=== PATIENT | female | born 1935 | race Caucasian/White ===

== ENCOUNTER 2021-05-27 17:34 | Observation (INO) | payer MEDICARE ==
[2021-05-27] MEDS ORDERED: OXYMETAZOLINE 0.05% NASL SPRAY 1 SPRAY BOTTLE NASAL STA (18:10)
--- NOTE | 2021-05-27 18:51 | CT ---
EXAMINATION TYPE: CT brain darwin wo con DATE OF EXAM: 05/27/2021 COMPARISON: None HISTORY: Fall. CT DLP: 1082.7 mGycm Automated exposure control for dose reduction was used. Images of the brain and cervical spine obtained without contrast. There is diffuse cerebral cortical atrophy. There is patchy hypodensity in the periventricular white matter. There is no mass effect or midline shift. There is no sign of intracranial hemorrhage. There is extensive mucosal thickening in the maxillary and ethmoid air cells. There is normal aeration of t he mastoid sinuses. Cervical vertebra have normal alignment. There is some degenerative mild spur formation in the mid an d lower cervical spine. Posterior elements are intact. Facet joints are intact. There is no compressi on fracture. IMPRESSION: Degenerative hypertrophic mild changes in the cervical spine. No fracture seen. Cerebral atrophy and chronic small vessel ischemia. No acute intracranial abnormality.
--- NOTE | 2021-05-27 18:54 | CT ---
EXAMINATION TYPE: CT facial bones wo con DATE OF EXAM: 05/27/2021 COMPARISON: None HISTORY: Fall. CT DLP: 1082.7 mGycm Automated exposure control for dose reduction was used. Images of the facial bones obtained from the bottom of the mandible to the top of the frontal sinuses with no contrast. There is extensive mucosal thickening in the maxillary and ethmoid sinuses. There is increased densit y throughout the nasopharynx. This is consistent with blood clot and debris. There is fracture of the anterior maxilla. There is a nondisplaced fracture of the nasal bone. Nasal bone deviated very sligh tly to the left side. There is no evidence of orbital blowout fracture. The orbital margins appear intact. The zygomatic ar ches appear normal. The mandibular ring is intact. Temporomandibular joints are intact. There is norm al aeration of the mastoid sinuses. The temporal bones are intact. IMPRESSION: There is fracture of the anterior maxilla and nasal bone. There is blood clot and debris and hemorrha ge in the maxillary and ethmoid sinuses and the nasal pharynx. No orbital blowout fracture.
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
[2021-05-27] MEDS ORDERED: TRANEXAMIC ACID 1,000 MG/10 ML VIAL MISCELLANE ONE (19:27)
[2021-05-27] MEDS ORDERED: ONDANSETRON ODT 4 MG TAB PO STA (19:29)
[2021-05-27] MEDS ORDERED: SODIUM CHLORIDE 0.9% 1,000 ML IV STA (20:14)
[2021-05-27] MEDS ORDERED: ONDANSETRON 4 MG/2 ML VIAL IVP STA (20:17)
[2021-05-27 21:18] LABS: Basophils # (A) 0.1 k/uL (0-0.2); Basophils % (A) 1 %; Eosinophils # (A) 0.1 k/uL (0-0.7); Eosinophils % (A) 1 %; HCT 42.2 % (34.0-46.0); HGB 13.8 gm/dL (11.4-16.0); Lymphocytes % (A) 6 %; MCH 29.9 pg (25.0-35.0); MCHC 32.7 g/dL (31.0-37.0); MCV 91.2 fL (80.0-100.0); Mean Platelet Volume 9.5; Monocytes # (A) 0.7 k/uL (0-1.0); Monocytes % (A) 4 %; Neutrophils # (A) 15.3 k/uL (1.3-7.7); Neutrophils % (A) 89 %; Platelet Count 219 k/uL (150-450); RBC 4.63 m/uL (3.80-5.40); RDW 14.3 % (11.5-15.5); WBC 17.2 k/uL (3.8-10.6)
[2021-05-27 21:23] LABS: Partial Thromboplastin Time 24.3 sec (22.0-30.0); Prothrombin Time 11.2 sec (9.0-12.0)
--- NOTE | 2021-05-27 21:27 | XR ---
EXAMINATION TYPE: XR chest 2V DATE OF EXAM: 05/27/2021 COMPARISON: 01/29/2011 HISTORY: Weakness TECHNIQUE: FINDINGS: Heart is enlarged. There is no heart failure. There are sternal wires. Thoracic aorta is at heromatous. There is no pleural effusion. The thoracic spine is intact there is 30% wedging of upper lumbar vertebra. This is probably L2 vertebra. IMPRESSION: Cardiomegaly. No active cardiopulmonary disease. Atheromatous aorta. There is L2 compress ion fracture which is probably new compared to old exam.
[2021-05-27 21:30] LABS: Albumin 4.1 g/dL (3.5-5.0); Calcium 9.1 mg/dL (8.4-10.2); Magnesium 1.9 mg/dL (1.6-2.3); Potassium 3.4 mmol/L (3.5-5.1); Total Bilirubin 0.7 mg/dL (0.2-1.3); Total Protein 7.6 g/dL (6.3-8.2)
[2021-05-27] MEDS ORDERED: NALOXONE 0.4 MG/ML 1 ML VIAL IV PRN (22:20)
[2021-05-27] MEDS ORDERED: ONDANSETRON 4 MG/2 ML VIAL IVP PRN (22:20)
[2021-05-27] MEDS ORDERED: ASPIRIN 81 MG PO SCH (22:30)
[2021-05-27] MEDS ORDERED: MAGNESIUM OXIDE 400 MG TAB PO SCH (22:30)
[2021-05-27] MEDS ORDERED: ATORVASTATIN 10 MG TAB PO SCH (22:30)
[2021-05-27 22:35] LABS: Amorphous Sediment,Urine Occasional /hpf; Appearance,Urine Turbid (Clear); Bilirubin,Urine Negative (Negative); Blood,Urine Negative (Negative); Color,Urine Light Yellow; Glucose,Urine (UA) Negative (Negative); Ketones,Urine Trace (Negative); Leukocyte Esterase,Urine Negative (Negative); Mucus,Urine Rare /hpf; Nitrite,Urine Negative (Negative); PH, Urine 7.5 (5.0-8.0); Protein,Urine Negative (Negative); Specific Gravity,Urine 1.011 (1.001-1.035); Urobilinogen,Urine <2.0 mg/dL (<2.0); WBC,Urine 1 /hpf (0-5)
[2021-05-27] MEDS: METOPROLOL SUCCINATE (ER) 50 MG TAB.ER.24H PO SCH (23:00)
[2021-05-27] MEDS: CEPHALEXIN 250 MG CAP PO SCH (23:00)
[2021-05-27] MEDS: ACETAMINOPHEN TAB 500 MG TAB PO PRN (23:01)
[2021-05-28] MEDS ORDERED: LEVOTHYROXINE 100 MCG TAB PO SCH (06:30)
[2021-05-28 07:21] VITALS: RESP 18
[2021-05-28] MEDS: ACETAMINOPHEN TAB 500 MG TAB PO PRN (08:35)
[2021-05-28] MEDS: METOPROLOL SUCCINATE (ER) 50 MG TAB.ER.24H PO SCH (08:35)
[2021-05-28] MEDS: CEPHALEXIN 250 MG CAP PO SCH ×2 (08:35→14:46)
[2021-05-28 09:13] LABS: Basophils # (A) 0.1 k/uL (0-0.2); Basophils % (A) 1 %; Eosinophils # (A) 0.1 k/uL (0-0.7); Eosinophils % (A) 0 %; HCT 40.7 % (34.0-46.0); HGB 13.6 gm/dL (11.4-16.0); Lymphocytes # (A) 1.4 k/uL (1.0-4.8); Lymphocytes % (A) 10 %; MCH 30.7 pg (25.0-35.0); MCHC 33.4 g/dL (31.0-37.0); MCV 91.8 fL (80.0-100.0); Mean Platelet Volume 9.1; Monocytes # (A) 0.7 k/uL (0-1.0); Monocytes % (A) 5 %; Neutrophils # (A) 11.4 k/uL (1.3-7.7); Neutrophils % (A) 83 %; Platelet Count 218 k/uL (150-450); RBC 4.44 m/uL (3.80-5.40); RDW 14.3 % (11.5-15.5); WBC 13.9 k/uL (3.8-10.6)
[2021-05-28 09:25] LABS: ALT 21 U/L (4-34); AST 39 U/L (14-36); African American GFR (CKD) 84 (>60 ml/min/1.73 sqM); Albumin 3.8 g/dL (3.5-5.0); Albumin/Globulin Ratio 1.1; Alkaline Phosphatase 64 U/L (38-126); Anion Gap 6 mmol/L; Blood Urea Nitrogen 11 mg/dL (7-17); Calcium 9.2 mg/dL (8.4-10.2); Carbon Dioxide 29 mmol/L (22-30); Chloride 104 mmol/L (98-107); Globulin 3.5 g/dL; Glucose 150 mg/dL (74-99); Non-African American GFR(CKD) 73 (>60 ml/min/1.73 sqM); Potassium 3.5 mmol/L (3.5-5.1); Sodium 139 mmol/L (137-145); Total Bilirubin 0.9 mg/dL (0.2-1.3); Total Protein 7.3 g/dL (6.3-8.2)
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
--- NOTE | 2021-05-28 13:40 | P.GSHP ---
History of Present Illness H&P Date: 05/28/21 Patient seen and examined at 8:40 this morning CHIEF COMPLAINT: Fall HISTORY OF PRESENT ILLNESS: This is a 85-year-old female who presented to the hospital after a fall. Patient reports that she was taking the garbage down to the road. It was very windy. She fell into the ditch landing on ice. She reports hitting her face on the ice. She is not sure if she lost consciousness. She reports that her nose was bleeding. Initially she had difficulty getting up. But then was able to get herself up into the high speed. She called family who brought her in to the hospital for further evaluation and treatment. Patient was found to have fractures of the anterior maxilla and nasal bone. And chest x-ray did show an L2 compression fracture. Patient reports that her pain is controlled. The nose bleeding has stopped. She is tolerating regular diet. She has been seen by orthopedic service and medicine service. She denies any fever chills or sweats. Denies any chest pain or shortness of breath. Denies any abdominal pain. Denies any nausea or vomiting. She is having flatus. Patient denies being on any blood thinners. Patient seen and examined with Dr. resendez. PAST MEDICAL HISTORY: Atrial Fibrillation, GERD/Reflux, Hyperlipidemia, Hypertension, Osteoarthritis (OA), Pneumonia, Thyroid Disorder, PAST SURGICAL HISTORY: See list. MEDICATIONS: See list. ALLERGIES: See list. SOCIAL HISTORY: No illicit drug use. REVIEW OF SYSTEMS: CONSTITUTIONAL: Denies fever or chills. HEENT: Denies blurred vision, vision changes, or eye pain. Denies hemoptysis CARDIOVASCULAR: Denies chest pain or pressure. RESPIRATORY: No shortness of breath. GASTROINTESTINAL: See HPI for pertinent findings HEMATOLOGIC: Denies bleeding disorders. GENITOURINARY: Denies any blood in urine or increased urinary frequency. SKIN: Denies pruitis. Denies rash. PHYSICAL EXAM: VITAL SIGNS: Reviewed GENERAL: Well-developed in no acute distress. HEENT: No sclera icterus. Extraocular movements grossly intact. Moist buccal mucosa. Head is normocephalic. Patient has bruising around the periorbital is bilaterally. His swelling along the nose and bruising. Patient does have dried blood noted in the nares. ABDOMEN: Soft. Nondistended. Nontender NEUROLOGIC: Alert and oriented. Cranial nerves II through XII grossly intact. LABORATORY DATA: WBC 13.9 hemoglobin 13.6 platelets 218 Sodium 139 potassium 3.5 creatinine 0.75 AST 39 IMAGING: Computed tomography scan of the cervical spine and brain shows degenerative hypertrophic mild changes of the cervical spine. No acute fracture. Cerebral atrophy and chronic small vessel ischemia. No acute intracranial abnormality Facial CT there is fracture of the anterior maxilla and nasal bone. There is blood clot and debris and hemorrhage in the maxillary and ethmoid sinuses and nasal pharynx. No orbital blowout fracture. Chest x-ray cardiomegaly. No acute process. There is a L2 compression fracture probably new ASSESSMENT: 1. Fall with facial trauma 2. Fracture of the anterior maxilla and nasal bone 3. L2 compression fracture age undetermined PLAN: -Continue supportive care -Continue pain medication as needed -Continue ice packs as needed -Continue regular diet -Patient follow-up with ENT service outpatient -Patient seen by spinal service and medicine service Physician Woven Paper Hat Mender note has been reviewed by physician. Signing provider agrees with the documented findings, assessment, and plan of care. Past Medical History Past Medical History: Atrial Fibrillation, GERD/Reflux, Hyperlipidemia, Hypertension, Osteoarthritis (OA), Pneumonia, Thyroid Disorder Additional Past Medical History / Comment(s): Afib with RVR, mitral valve prolapse/murmur-had mitral valve replacement, gallbladder dyskinesia, diverticulosis, UTIs, hypothyroid, arthritis bilateral hands fingers. History of Any Multi-Drug Resistant Organisms: None Reported Past Surgical History: Appendectomy, Cardiac Valve Replacement Additional Past Surgical History / Comment(s): TEEs, cardiac caths, 2011 mitral valve replacement, colonoscopies, bilateral cataract removals/lens implants. Past Anesthesia/Blood Transfusion Reactions: No Reported Reaction, Motion Sickness Additional Past Anesthesia/Blood Transfusion Reaction / Comment(s): Clausterphobia Past Psychological History: No Psychological Hx Reported Smoking Status: Never smoker Past Alcohol Use History: None Reported Past Drug Use History: None Reported - Past Family History Father Family Medical History: Cancer Additional Family Medical History / Comment(s): Father from lung/brain cancer. He was a smoker and a drinker. Mother Family Medical History: Diabetes Mellitus Sister(s) Family Medical History: Prostate Disorder Additional Family Medical History / Comment(s): Pt has one sister with diabetes and another sister with multiple sclerosis. Medications and Allergies Home Medications Medication Instructions Recorded Confirmed Type Aspirin EC [Ecotrin Low Dose] 81 mg PO HS 11/18/19 05/27/21 History Cholecalciferol [Vitamin D3 (25 25 mcg PO DAILY 11/18/19 05/27/21 History Mcg = 1000 Iu)] Levothyroxine Sodium [Synthroid] 100 mcg PO DAILY 11/18/19 05/27/21 History Magnesium Oxide [Mag-Ox] 250 mg PO HS 11/18/19 05/27/21 History Metoprolol Succinate (ER) [Toprol 50 mg PO BID 11/18/19 05/27/21 History XL] Simvastatin [Zocor] 10 mg PO HS 11/18/19 05/27/21 History Ascorbic Acid [Vitamin C] 1,000 mg PO HS 05/27/21 05/27/21 History L.acidoph,Paracasei, B.lactis 1 cap PO DAILY 05/27/21 05/27/21 History [Probiotic] Multivit-Min/FA/Lycopen/Lutein 1 tab PO DAILY 05/27/21 05/27/21 History [Centrum Silver Tablet] Zinc 50 mg PO HS 05/27/21 05/27/21 History lisinopriL 2.5 mg PO DAILY 05/27/21 05/27/21 History Allergies Allergy/AdvReac Type Severity Reaction Status Date / Time Latex, Natural Rubber Allergy Rash/Hives Verified 05/27/21 19:08 Surgical - Exam Vital Signs Temp Pulse Resp BP Pulse Ox 98.2 F 89 20 222/99 100 05/27/21 17:36 05/27/21 17:36 05/27/21 17:36 05/27/21 17:36 05/27/21 17:36 Results - Labs 05/28/21 08:37 05/28/21 08:37 Abnormal Lab Results - Last 24 Hours (Table) 05/27/21 05/27/21 05/27/21 Range/Units 20:28 20:28 22:12 WBC 17.2 H (3.8-10.6) k/uL Neutrophils # 15.3 H (1.3-7.7) k/uL Potassium 3.4 L (3.5-5.1) mmol/L Glucose 164 H (74-99) mg/dL AST 47 H (14-36) U/L Urine Appearance Turbid H (Clear) Urine Ketones Trace H (Negative) Amorphous Sediment Occasional H (None) /hpf Urine Mucus Rare H (None) /hpf Diabetes panel 05/27/21 Range/Units 20:28 Sodium 139 (137-145) mmol/L Potassium 3.4 L (3.5-5.1) mmol/L Chloride 104 (98-107) mmol/L Carbon Dioxide 27 (22-30) mmol/L BUN 11 (7-17) mg/dL Creatinine 0.72 (0.52-1.04) mg/dL Glucose 164 H (74-99) mg/dL Calcium 9.1 (8.4-10.2) mg/dL AST 47 H (14-36) U/L ALT 22 (4-34) U/L Alkaline Phosphatase 86 (38-126) U/L Total Protein 7.6 (6.3-8.2) g/dL Albumin 4.1 (3.5-5.0) g/dL Calcium panel 05/27/21 Range/Units 20:28 Calcium 9.1 (8.4-10.2) mg/dL Albumin 4.1 (3.5-5.0) g/dL Pituitary panel 05/27/21 Range/Units 20:28 Sodium 139 (137-145) mmol/L Potassium 3.4 L (3.5-5.1) mmol/L Chloride 104 (98-107) mmol/L Carbon Dioxide 27 (22-30) mmol/L BUN 11 (7-17) mg/dL Creatinine 0.72 (0.52-1.04) mg/dL Glucose 164 H (74-99) mg/dL Calcium 9.1 (8.4-10.2) mg/dL Adrenal panel 05/27/21 Range/Units 20:28 Sodium 139 (137-145) mmol/L Potassium 3.4 L (3.5-5.1) mmol/L Chloride 104 (98-107) mmol/L Carbon Dioxide 27 (22-30) mmol/L BUN 11 (7-17) mg/dL Creatinine 0.72 (0.52-1.04) mg/dL Glucose 164 H (74-99) mg/dL Calcium 9.1 (8.4-10.2) mg/dL Total Bilirubin 0.7 (0.2-1.3) mg/dL AST 47 H (14-36) U/L ALT 22 (4-34) U/L Alkaline Phosphatase 86 (38-126) U/L Total Protein 7.6 (6.3-8.2) g/dL Albumin 4.1 (3.5-5.0) g/dL
--- NOTE | 2021-05-28 13:46 | P.DS ---
Providers Date of admission: 05/27/21 22:20 Expected date of discharge: 05/28/21 Attending physician: Nabor Weston Consults: 05/27/21 22:21 Consult Physician Routine Consulting Provider: Inna Garcia Consult Reason/Comments: medical manage Do you want consulting provider notified?: Yes 05/27/21 22:41 Consult Physician Routine Consulting Provider: Micah Bay Consult Reason/Comments: L2 compression fracture Do you want consulting provider notified?: Yes Primary care physician: Finesse Castaneda Hospital Course: Discharge diagnosis 1. Fall with facial trauma 2. Fracture of the anterior maxilla and nasal bone 3. L2 compression fracture age undetermined Hospital course This is a 85-year-old female who presented to the hospital after a fall. Patient reports that she was taking the garbage down to the road. It was very windy. She fell into the ditch landing on ice. She reports hitting her face on the ice. She is not sure if she lost consciousness. She reports that her nose was bleeding. Initially she had difficulty getting up. But then was able to get herself up into the high speed. She called family who brought her in to the hospital for further evaluation and treatment. Patient was found to have fractures of the anterior maxilla and nasal bone. And chest x-ray did show an L2 compression fracture. Patient reports that her pain is controlled. The nose bleeding has stopped. She is tolerating regular diet. She has been seen by orthopedic service and medicine service. Patient has been up and ambulating. Her nose bleeding has stopped. She is tolerating regular diet. She's been cleared by medical service and spinal service for discharge. She'll follow up with spinal service outpatient. Patient is afebrile. She is tolerating diet. She is stable for discharge. Please refer to chart for any further details. Physician Machine Rough Rounder note has been reviewed by physician. Signing provider agrees with the documented findings, assessment, and plan of care. Patient Condition at Discharge: Stable Plan - Discharge Summary Discharge Rx Participant: No New Discharge Prescriptions: New Acetaminophen Tab [Tylenol Tab] 650 mg PO Q4H PRN #30 tablet PRN Reason: Pain Cephalexin [Keflex] 500 mg PO Q8HR 5 Days #15 cap Continue Magnesium Oxide [Mag-Ox] 250 mg PO HS Cholecalciferol [Vitamin D3 (25 Mcg = 1000 Iu)] 25 mcg PO DAILY Simvastatin [Zocor] 10 mg PO HS Metoprolol Succinate (ER) [Toprol XL] 50 mg PO BID Levothyroxine Sodium [Synthroid] 100 mcg PO DAILY Ascorbic Acid [Vitamin C] 1,000 mg PO HS Zinc 50 mg PO HS L.acidoph,Paracasei, B.lactis [Probiotic] 1 cap PO DAILY lisinopriL 2.5 mg PO DAILY Multivit-Min/FA/Lycopen/Lutein [Centrum Silver Tablet] 1 tab PO DAILY Discontinued Aspirin EC [Ecotrin Low Dose] 81 mg PO HS Discharge Medication List Cholecalciferol [Vitamin D3 (25 Mcg = 1000 Iu)] 25 mcg PO DAILY 11/18/19 [History] Levothyroxine Sodium [Synthroid] 100 mcg PO DAILY 11/18/19 [History] Magnesium Oxide [Mag-Ox] 250 mg PO HS 11/18/19 [History] Metoprolol Succinate (ER) [Toprol XL] 50 mg PO BID 11/18/19 [History] Simvastatin [Zocor] 10 mg PO HS 11/18/19 [History] Ascorbic Acid [Vitamin C] 1,000 mg PO HS 05/27/21 [History] L.acidoph,Paracasei, B.lactis [Probiotic] 1 cap PO DAILY 05/27/21 [History] Multivit-Min/FA/Lycopen/Lutein [Centrum Silver Tablet] 1 tab PO DAILY 05/27/21 [History] Zinc 50 mg PO HS 05/27/21 [History] lisinopriL 2.5 mg PO DAILY 05/27/21 [History] Acetaminophen Tab [Tylenol Tab] 650 mg PO Q4H PRN #30 tablet 05/28/21 [Rx] Cephalexin [Keflex] 500 mg PO Q8HR 5 Days #15 cap 05/28/21 [Rx] Follow up Appointment(s)/Referral(s): Micah Bay DO [Doctor of Osteopathic Medicine] - 1 Week Finesse Castaneda DO [Primary Care Provider] - 1-2 days Maxim Harris MD [STAFF PHYSICIAN] - 1 Week Activity/Diet/Wound Care/Special Instructions: May ambulate as tolerated. Avoid heavy or rigorous activity. No repetitive bending twisting or lifting. No overhead work. Continue to hold aspirin until seen by PCP Discharge Disposition: HOME SELF-CARE
[2021-05-28 15:05] VITALS: BP 146/81; PULSE 76; TEMP 98.2
--- NOTE | 2021-05-28 15:55 | XR ---
EXAMINATION TYPE: XR lumbar spine 2 or 3V DATE OF EXAM: 05/28/2021 COMPARISON: CT dated 01/24/2011 INDICATION: 85-year-old female, possibly new L2 compression fracture TECHNIQUE: 3 views of the lumbar spine FINDINGS: Diffuse osteopenia. Mild anterolisthesis of L5 over S1, likely degenerative. Retrolisthesis of L3 ove r L4. Compression fracture of L2 vertebral body with upper endplate depression and about 45% height r eduction without significant sclerotic changes. This could be acute to subacute, please correlate cli nically. Further CT assessment can be considered if clinically required. Exaggerated lumbar lordosis. Degenerative changes of the lower thoracic and lumbar spine with multile hodan opposing endplate osteophytosis. Suspected facet osteoarthropathy at L4-5 and L5-S1 levels. There is likely degenerated L2-3 disc. Scattered arterial atherosclerotic calcifications. IMPRESSION: L2 vertebral body compression fracture, not appreciated in 2011 CT scan and could be acute to subacut e, chronic fracture cannot be excluded, please correlate clinically. Further CT assessment can be con sidered if clinically required. Other incidental findings as described above.
== END 2021-05-28 15:10 | disposition home or self-care (01) ==
LOC: EC 17:34 → 6NMEDSUR 22:20
PROVIDERS: ADMIT Surgery; ATTEND Surgery
DX: S02.401A Maxillary fracture, unspecified side, initial encounter for closed fracture (principal); S02.2XXA Fracture of nasal bones, initial encounter for closed fracture; M48.56XA Collapsed vertebra, not elsewhere classified, lumbar region, initial encounter for fracture; S01.81XA Laceration without foreign body of other part of head, initial encounter; M54.6 Pain in thoracic spine; W00.0XXA Fall on same level due to ice and snow, initial encounter; R04.89 Hemorrhage from other sites in respiratory passages; W19.XXXA Unspecified fall, initial encounter; K21.9 Gastro-esophageal reflux disease without esophagitis; E03.9 Hypothyroidism, unspecified; E78.5 Hyperlipidemia, unspecified; D72.829 Elevated white blood cell count, unspecified; I11.9 Hypertensive heart disease without heart failure; I25.10 Atherosclerotic heart disease of native coronary artery without angina pectoris; I34.1 Nonrheumatic mitral (valve) prolapse; M50.30 Other cervical disc degeneration, unspecified cervical region; I48.91 Unspecified atrial fibrillation; E87.6 Hypokalemia; M19.042 Primary osteoarthritis, left hand; M19.041 Primary osteoarthritis, right hand; M19.90 Unspecified osteoarthritis, unspecified site; K57.90 Diverticulosis of intestine, part unspecified, without perforation or abscess without bleeding; Z79.890 Hormone replacement therapy; Z79.899 Other long term (current) drug therapy; Z91.040 Latex allergy status; Z98.42 Cataract extraction status, left eye; Z98.41 Cataract extraction status, right eye; Z96.1 Presence of intraocular lens; Z87.01 Personal history of pneumonia (recurrent); K82.8 Other specified diseases of gallbladder; Z95.2 Presence of prosthetic heart valve; Z87.440 Personal history of urinary (tract) infections; Z83.3 Family history of diabetes mellitus; Z82.0 Family history of epilepsy and other diseases of the nervous system; Z80.8 Family history of malignant neoplasm of other organs or systems
CPT/HCPCS: 99285; 96374; 96361 ×2; 36415; 97161; 80053 ×2; 83735; 85025 ×2; 85610; 85730; 81001; 72100; 71046; 72125; 70486; 70450; G0378 ×2; J2405

== ENCOUNTER 2021-06-06 11:57 | Emergency (ER) | payer MEDICARE ==
[2021-06-06 12:51] VITALS: RESP 18; TEMP 98
--- NOTE | 2021-06-06 13:54 | XR ---
EXAMINATION TYPE: XR chest 2V DATE OF EXAM: 06/06/2021 COMPARISON: Chest x-ray 05/27/2021 HISTORY: Fever and cough TECHNIQUE: Frontal and lateral views of the chest are obtained. FINDINGS: There is no focal air space opacity, pleural effusion, or pneumothorax seen. The cardiac silhouette size is thought to be enlarged. Patient is post median sternotomy. There are overlying art ifacts. Patient is rotated. Aorta is dense. Prominence of the pulmonary artery could be indicative of pulmonary artery hypertension. Prominent lung volumes are noted, there is flattening of hemidiaphrag ms suggesting underlying COPD. The osseous structures are intact, anterior wedge compression deformit y near the thoracic lumbar junction is stable.. IMPRESSION: No acute cardiopulmonary process, additional findings above.
[2021-06-06] MEDS ORDERED: predniSONE 50 MG TAB PO STA (15:54)
--- NOTE | 2021-06-06 15:54 | ED ---
General Adult HPI - General Chief complaint: Fever Stated complaint: fever, cough Time Seen by Provider: 06/06/21 14:28 Source: patient Mode of arrival: ambulatory Limitations: no limitations - History of Present Illness Initial comments: This 85-year-old female presents emergency Department with cough, fever and nasal congestion 2 days. Patient states she was seen here in the emergency department about a week and a half ago after a fall at her and she broke her nose at that time and has was placed on Keflex at that time for 5 days. Patient followed up with ENT yesterday who gave her another 10 days of Keflex. Patient states 2 days ago she began to have a nonproductive dry cough and states she had a fever of 100.7 yesterday. Patient states she has been taking Motrin which has relieved and helped her fever. Patient states the cough is better when she is sitting up in her chair. Patient denies any chest pain or shortness of breath. She denies any pain with deep inspiration or pain with the cough. Patient denies any shortness of breath when getting up and moving around. Patient is walking around and ambulatory at her home. She denies any hemoptysis or any malignancy treatment within the last 6 months/ Patient denies any abdominal pain, nausea, vomiting, change in appetite, change in bowel or bladder, headache, lightheadedness, dizziness, sinus pain, change in vision. - Related Data Home Medications Medication Instructions Recorded Confirmed Cholecalciferol [Vitamin D3 (25 25 mcg PO DAILY 11/18/19 05/27/21 Mcg = 1000 Iu)] Levothyroxine Sodium [Synthroid] 100 mcg PO DAILY 11/18/19 05/27/21 Magnesium Oxide [Mag-Ox] 250 mg PO HS 11/18/19 05/27/21 Metoprolol Succinate (ER) [Toprol 50 mg PO BID 11/18/19 05/27/21 XL] Simvastatin [Zocor] 10 mg PO HS 11/18/19 05/27/21 Ascorbic Acid [Vitamin C] 1,000 mg PO HS 05/27/21 05/27/21 L.acidoph,Paracasei, B.lactis 1 cap PO DAILY 05/27/21 05/27/21 [Probiotic] Multivit-Min/FA/Lycopen/Lutein 1 tab PO DAILY 05/27/21 05/27/21 [Centrum Silver Tablet] Zinc 50 mg PO HS 05/27/21 05/27/21 lisinopriL 2.5 mg PO DAILY 05/27/21 05/27/21 Cephalexin [Keflex] 500 mg PO BID 06/06/21 06/06/21 Previous Rx's Medication Instructions Recorded Acetaminophen Tab [Tylenol Tab] 650 mg PO Q4H PRN #30 tablet 05/28/21 Albuterol Inhaler [Ventolin Hfa 2 puff INHALATION RT-TID #8 gm 06/06/21 Inhaler] Benzonatate [Tessalon Perles] 100 mg PO BID #15 capsule 06/06/21 predniSONE 50 mg PO DAILY #5 tab 06/06/21 Allergies Allergy/AdvReac Type Severity Reaction Status Date / Time Latex, Natural Rubber Allergy Rash/Hives Verified 06/06/21 16:00 Review of Systems ROS Statement: Those systems with pertinent positive or pertinent negative responses have been documented in the HPI. ROS Other: All systems not noted in ROS Statement are negative. Past Medical History Past Medical History: Atrial Fibrillation, GERD/Reflux, Hyperlipidemia, Hypertension, Osteoarthritis (OA), Pneumonia, Thyroid Disorder Additional Past Medical History / Comment(s): Afib with RVR, mitral valve prolapse/murmur-had mitral valve replacement, gallbladder dyskinesia, diverticulosis, UTIs, hypothyroid, arthritis bilateral hands fingers. History of Any Multi-Drug Resistant Organisms: None Reported Past Surgical History: Appendectomy, Cardiac Valve Replacement Additional Past Surgical History / Comment(s): TEEs, cardiac caths, 2010 mitral valve replacement, colonoscopies, bilateral cataract removals/lens implants. Past Anesthesia/Blood Transfusion Reactions: No Reported Reaction, Motion Sickness Additional Past Anesthesia/Blood Transfusion Reaction / Comment(s): Clausterphobia Past Psychological History: No Psychological Hx Reported Smoking Status: Never smoker Past Alcohol Use History: None Reported Past Drug Use History: None Reported - Past Family History Father Family Medical History: Cancer Additional Family Medical History / Comment(s): Father from lung/brain cancer. He was a smoker and a drinker. Mother Family Medical History: Diabetes Mellitus Sister(s) Family Medical History: Prostate Disorder Additional Family Medical History / Comment(s): Pt has one sister with diabetes and another sister with multiple sclerosis. General Exam Limitations: no limitations General appearance: alert, in no apparent distress Head exam: Present: normocephalic, other (Patient with bruising to bilateral cheekbones and cheeks was also seen running down her neck into the anterior surface of her chest. Patient states this has been a last couple of weeks since her fall and is slowly improving.) Eye exam: Present: normal appearance, PERRL, EOMI ENT exam: Present: normal exam, normal oropharynx, mucous membranes moist, other (No erythema to posterior oropharynx. Uvula midline. Patient does sound like she has a little bit of nasal congestion) Neck exam: Present: full ROM. Absent: tenderness Respiratory exam: Present: normal lung sounds bilaterally. Absent: respiratory distress, wheezes, rales, rhonchi, stridor, chest wall tenderness, accessory muscle use, decreased breath sounds, prolonged expiratory Cardiovascular Exam: Present: regular rate, normal rhythm, normal heart sounds. Absent: systolic murmur, diastolic murmur, rubs, gallop, clicks GI/Abdominal exam: Present: soft, normal bowel sounds. Absent: distended, tenderness, guarding, rebound, rigid Extremities exam: Present: normal inspection, full ROM, normal capillary refill. Absent: tenderness, pedal edema, joint swelling, calf tenderness Back exam: Present: normal inspection, full ROM. Absent: CVA tenderness (R), CVA tenderness (L), paraspinal tenderness, vertebral tenderness Neurological exam: Present: alert, oriented X3, CN II-XII intact Psychiatric exam: Present: normal affect, normal mood Skin exam: Present: warm, dry, intact, normal color. Absent: rash Course Vital Signs 06/06/21 12:49 Temperature 98 F Pulse Rate 98 Respiratory 18 Rate Blood Pressure 125/78 O2 Sat by Pulse 95 Oximetry Medical Decision Making - Medical Decision Making This 85-year-old's Emergency Department with Fever, Cough and Nasal Congestion 2 Days. Influenza A/B and COVID-19 negative. Patient is on Keflex antibiotic already 10 days. Chest x-ray without any acute abnormalities. Patient given 5 day dose of prednisone along with albuterol inhaler and Tessalon Perles. Instructed patient to return to the emergency department if she experiences any shortness of breath, pain in chest with breathing or coughing, shortness of breath when moving around or just sitting, chest pain or any new, worsening or concerning symptoms present. I instructed her to return to the emergency de partment if the Motrin does not help her fever or for fever presents for more than 5 days. Patient instructed to follow up with her primary care provider next 1-2 days. Strict return precautions were discussed. Patient verbally agree to plan. Patient sent home in stable condition. Wells and perc criteria did not show increased risk for pulmonary embolism, along with patient's oxygen being 95% and patient without any shortness of breath or chest pain. Patient has not had any recent surgeries, has been ambulatory in her home, and is not being treated for any malignancy. Vitals were all stable. Case discussed with my attending, Dr. Herring. - Lab Data Lab Results 06/06/21 06/06/21 Range/Units 14:27 14:27 Coronavirus (PCR) Not Detected (Not Detectd) Influenza Type A RNA Not Detected (Not Detectd) Influenza Type B (PCR) Not Detected (Not Detectd) Disposition Clinical Impression: Upper respiratory infection with cough and congestion Disposition: HOME SELF-CARE Condition: Stable Instructions (If sedation given, give patient instructions): Upper Respiratory Infection (ED) Additional Instructions: Please follow-up with your primary care provider next 1-2 days. Return to the emergency department with any new, worsening, or concerning symptoms. Take steroid as directed. Use albuterol inhaler as directed. Take Tessalon Perles as directed. Prescriptions: predniSONE 50 mg PO DAILY #5 tab Benzonatate [Tessalon Perles] 100 mg PO BID #15 capsule Albuterol Inhaler [Ventolin Hfa Inhaler] 2 puff INHALATION RT-TID #8 gm Is patient prescribed a controlled substance at d/c from ED?: No Referrals: Finesse Castaneda DO [Primary Care Provider] - 1-2 days Time of Disposition: 15:48
[2021-06-06] MEDS ORDERED: ALBUTEROL HFA INHALER INHALATION STA (15:55)
[2021-06-06 16:52] VITALS: BP 137/75; PULSE 85
== END 2021-06-06 16:52 | disposition home or self-care (01) ==
LOC: EC 11:57
DX: J06.9 Acute upper respiratory infection, unspecified (principal); I48.91 Unspecified atrial fibrillation; K21.9 Gastro-esophageal reflux disease without esophagitis; E78.5 Hyperlipidemia, unspecified; I10 Essential (primary) hypertension; M19.90 Unspecified osteoarthritis, unspecified site; E07.9 Disorder of thyroid, unspecified; Z20.822 Contact with and (suspected) exposure to COVID-19; Z91.040 Latex allergy status; Z87.440 Personal history of urinary (tract) infections; Z79.899 Other long term (current) drug therapy; Z90.49 Acquired absence of other specified parts of digestive tract
CPT/HCPCS: 99283; 94640; 87502; 87635; 71046; J7512

== ENCOUNTER 2021-07-19 20:54 | Emergency (ER) | payer MEDICARE ==
[2021-07-19 22:28] VITALS: TEMP 97.7
[2021-07-20] MEDS ORDERED: ONDANSETRON 4 MG/2 ML VIAL IVP STA (00:07)
[2021-07-20] MEDS ORDERED: SODIUM CHLORIDE 0.9% 1,000 ML IV STA (00:07)
[2021-07-20] MEDS ORDERED: SODIUM CHLORIDE 0.9% 500 ML 500 ML IV STA (00:07)
--- NOTE | 2021-07-20 00:11 | ED ---
GI Bleed HPI - General Chief complaint: GI Bleed Stated complaint: blood in stool Time Seen by Provider: 07/20/21 00:07 Source: patient, RN notes reviewed, old records reviewed Mode of arrival: ambulatory Limitations: no limitations - History of Present Illness Initial comments: This is an 85-year-old female DF for evaluation. Patient coming in for weakness today. No nausea no vomiting. Patient does have bright red bleeding per rectum. She has history of colonoscopy. No travel history or sick contacts. No fevers. No cough or congestion. No other complaints MD complaint: blood on toilet paper, blood streaked stool -: hour(s) Radiation: none Severity scale (1-10): 7 Quality: painless Consistency: constant Improves with: none Worsens with: none Context: history of GI bleed Associated Symptoms: nausea, loss of appetite, malaise, weakness Treatments Prior to Arrival: none - Related Data Home Medications Medication Instructions Recorded Confirmed Levothyroxine Sodium [Synthroid] 100 mcg PO DAILY 11/18/19 07/23/21 Magnesium Oxide [Mag-Ox] 250 mg PO HS 11/18/19 07/23/21 Metoprolol Succinate (ER) [Toprol 50 mg PO BID 11/18/19 07/23/21 XL] Simvastatin [Zocor] 10 mg PO HS 11/18/19 07/23/21 Ascorbic Acid [Vitamin C] 1,000 mg PO HS 05/27/21 07/23/21 L.acidoph,Paracasei, B.lactis 1 cap PO DAILY 05/27/21 07/23/21 [Probiotic] Multivit-Min/FA/Lycopen/Lutein 1 tab PO DAILY 05/27/21 07/23/21 [Centrum Silver Tablet] Zinc 50 mg PO HS 05/27/21 07/23/21 lisinopriL 2.5 mg PO DAILY 05/27/21 07/23/21 Cholecalciferol [Vitamin D3 (25 25 mcg PO DAILY 07/20/21 07/23/21 Mcg = 1000 Iu)] Previous Rx's Medication Instructions Recorded Peg 3350-Na Sulf,Bicarb,Cl/KCl 4,000 ml PO DIRECTED #1 each 07/20/21 [Golytely Lavage] Allergies Allergy/AdvReac Type Severity Reaction Status Date / Time Latex, Natural Rubber Allergy Rash/Hives Verified 07/23/21 10:57 Review of Systems ROS Statement: Those systems with pertinent positive or pertinent negative responses have been documented in the HPI. ROS Other: All systems not noted in ROS Statement are negative. Past Medical History Past Medical History: Atrial Fibrillation, GERD/Reflux, Hyperlipidemia, Hypertension, Osteoarthritis (OA), Pneumonia, Thyroid Disorder Additional Past Medical History / Comment(s): Afib with RVR, mitral valve prolapse/murmur-had mitral valve replacement, gallbladder dyskinesia, diverticulosis, UTIs, hypothyroid, arthritis bilateral hands fingers. History of Any Multi-Drug Resistant Organisms: None Reported Past Surgical History: Appendectomy, Cardiac Valve Replacement Additional Past Surgical History / Comment(s): TEEs, cardiac caths, 2011 mitral valve replacement, colonoscopies, bilateral cataract removals/lens implants. Past Anesthesia/Blood Transfusion Reactions: No Reported Reaction, Motion Sickness Additional Past Anesthesia/Blood Transfusion Reaction / Comment(s): Clausterphobia Past Psychological History: No Psychological Hx Reported Smoking Status: Never smoker Past Alcohol Use History: None Reported Past Drug Use History: None Reported - Past Family History Father Family Medical History: Cancer Additional Family Medical History / Comment(s): Father from lung/brain cancer. He was a smoker and a drinker. Mother Family Medical History: Diabetes Mellitus Sister(s) Family Medical History: Prostate Disorder Additional Family Medical History / Comment(s): Pt has one sister with diabetes and another sister with multiple sclerosis. General Exam Limitations: no limitations General appearance: alert, in no apparent distress Head exam: Present: atraumatic, normocephalic, normal inspection Eye exam: Present: normal appearance, PERRL, EOMI. Absent: scleral icterus, conjunctival injection, periorbital swelling ENT exam: Present: normal exam, mucous membranes moist Neck exam: Present: normal inspection. Absent: tenderness, meningismus, lymphadenopathy Respiratory exam: Present: normal lung sounds bilaterally. Absent: respiratory distress, wheezes, rales, rhonchi, stridor Cardiovascular Exam: Present: regular rate, normal rhythm, normal heart sounds. Absent: systolic murmur, diastolic murmur, rubs, gallop, clicks GI/Abdominal exam: Present: soft, normal bowel sounds. Absent: distended, tenderness, guarding, rebound, rigid Rectal exam: Present: bloody stool Extremities exam: Present: normal inspection, full ROM, normal capillary refill. Absent: tenderness, pedal edema, joint swelling, calf tenderness Back exam: Present: normal inspection Neurological exam: Present: alert, oriented X3, CN II-XII intact Psychiatric exam: Present: normal affect, normal mood Skin exam: Present: warm, dry, intact, normal color. Absent: rash Course Vital Signs 07/19/21 07/20/21 07/20/21 22:24 01:07 07:11 Temperature 97.7 F Pulse Rate 86 84 65 Respiratory 16 18 18 Rate Blood Pressure 137/77 129/71 128/70 O2 Sat by Pulse 97 98 95 Oximetry - Reevaluation(s) Reevaluation #1: 07/20/21 00:09 Medical record is reviewed Reevaluation #2: Patient symptoms are improving here in the emergency department Patient is informed of results and questions have been answered Medical Decision Making - Medical Decision Making 85 female to be admitted for acute GI bleed. Active current bright red blood per rectum, hemoglobin normal vital signs normal and stable. Patient be admitted for recheck of hemoglobin - Lab Data Result diagrams: 07/20/21 09:12 07/20/21 00:46 Lab Results 07/20/21 07/20/21 07/20/21 Range/Units 00:46 00:46 00:46 WBC 10.5 (3.8-10.6) k/uL RBC 4.65 (3.80-5.40) m/uL Hgb 13.4 (11.4-16.0) gm/dL Hct 42.4 (34.0-46.0) % MCV 91.3 (80.0-100.0) fL MCH 28.8 (25.0-35.0) pg MCHC 31.6 (31.0-37.0) g/dL RDW 13.3 (11.5-15.5) % Plt Count 209 (150-450) k/uL MPV 8.9 Neutrophils % 69 % Lymphocytes % 18 % Monocytes % 6 % Eosinophils % 3 % Basophils % 2 % Neutrophils # 7.3 (1.3-7.7) k/uL Lymphocytes # 1.9 (1.0-4.8) k/uL Monocytes # 0.6 (0-1.0) k/uL Eosinophils # 0.3 (0-0.7) k/uL Basophils # 0.2 (0-0.2) k/uL PT 10.6 (9.0-12.0) sec INR 1.0 (<1.2) APTT 26.1 (22.0-30.0) sec Sodium 140 (137-145) mmol/L Potassium 4.1 (3.5-5.1) mmol/L Chloride 105 (98-107) mmol/L Carbon Dioxide 28 (22-30) mmol/L Anion Gap 7 mmol/L BUN 16 (7-17) mg/dL Creatinine 0.90 (0.52-1.04) mg/dL Est GFR (CKD-EPI)AfAm 68 (>60 ml/min/1.73 sqM) Est GFR (CKD-EPI)NonAf 59 (>60 ml/min/1.73 sqM) Glucose 117 H (74-99) mg/dL Plasma Lactic Acid Bryce (0.7-2.0) mmol/L Calcium 9.5 (8.4-10.2) mg/dL Phosphorus 3.6 (2.5-4.5) mg/dL Magnesium 2.1 (1.6-2.3) mg/dL Total Bilirubin 0.5 (0.2-1.3) mg/dL AST 28 (14-36) U/L ALT 16 (4-34) U/L Alkaline Phosphatase 93 (38-126) U/L Troponin I (0.000-0.034) ng/mL NT-Pro-B Natriuret Pep pg/mL Total Protein 7.5 (6.3-8.2) g/dL Albumin 4.0 (3.5-5.0) g/dL Blood Type Blood Type Recheck Bld Type Recheck Status Antibody Screen Spec Expiration Date 07/20/21 07/20/21 07/20/21 Range/Units 00:46 00:46 00:46 WBC (3.8-10.6) k/uL RBC (3.80-5.40) m/uL Hgb (11.4-16.0) gm/dL Hct (34.0-46.0) % MCV (80.0-100.0) fL MCH (25.0-35.0) pg MCHC (31.0-37.0) g/dL RDW (11.5-15.5) % Plt Count (150-450) k/uL MPV Neutrophils % % Lymphocytes % % Monocytes % % Eosinophils % % Basophils % % Neutrophils # (1.3-7.7) k/uL Lymphocytes # (1.0-4.8) k/uL Monocytes # (0-1.0) k/uL Eosinophils # (0-0.7) k/uL Basophils # (0-0.2) k/uL PT (9.0-12.0) sec INR (<1.2) APTT (22.0-30.0) sec Sodium (137-145) mmol/L Potassium (3.5-5.1) mmol/L Chloride (98-107) mmol/L Carbon Dioxide (22-30) mmol/L Anion Gap mmol/L BUN (7-17) mg/dL Creatinine (0.52-1.04) mg/dL Est GFR (CKD-EPI)AfAm (>60 ml/min/1.73 sqM) Est GFR (CKD-EPI)NonAf (>60 ml/min/1.73 sqM) Glucose (74-99) mg/dL Plasma Lactic Acid Bryce (0.7-2.0) mmol/L Calcium (8.4-10.2) mg/dL Phosphorus (2.5-4.5) mg/dL Magnesium (1.6-2.3) mg/dL Total Bilirubin (0.2-1.3) mg/dL AST (14-36) U/L ALT (4-34) U/L Alkaline Phosphatase (38-126) U/L Troponin I <0.012 (0.000-0.034) ng/mL NT-Pro-B Natriuret Pep 707 pg/mL Total Protein (6.3-8.2) g/dL Albumin (3.5-5.0) g/dL Blood Type O Negative Blood Type Recheck O Neg Bld Type Recheck Status No Antibody Screen NEGATIVE Spec Expiration Date 07/23/2021234507/20/21 07/20/21 Range/Units 00:54 09:12 WBC 7.6 (3.8-10.6) k/uL RBC 4.49 (3.80-5.40) m/uL Hgb 13.3 (11.4-16.0) gm/dL Hct 41.9 (34.0-46.0) % MCV 93.3 (80.0-100.0) fL MCH 29.5 (25.0-35.0) pg MCHC 31.7 (31.0-37.0) g/dL RDW 13.9 (11.5-15.5) % Plt Count 217 (150-450) k/uL MPV 9.0 Neutrophils % % Lymphocytes % % Monocytes % % Eosinophils % % Basophils % % Neutrophils # (1.3-7.7) k/uL Lymphocytes # (1.0-4.8) k/uL Monocytes # (0-1.0) k/uL Eosinophils # (0-0.7) k/uL Basophils # (0-0.2) k/uL PT (9.0-12.0) sec INR (<1.2) APTT (22.0-30.0) sec Sodium (137-145) mmol/L Potassium (3.5-5.1) mmol/L Chloride (98-107) mmol/L Carbon Dioxide (22-30) mmol/L Anion Gap mmol/L BUN (7-17) mg/dL Creatinine (0.52-1.04) mg/dL Est GFR (CKD-EPI)AfAm (>60 ml/min/1.73 sqM) Est GFR (CKD-EPI)NonAf (>60 ml/min/1.73 sqM) Glucose (74-99) mg/dL Plasma Lactic Acid Bryce 1.8 (0.7-2.0) mmol/L Calcium (8.4-10.2) mg/dL Phosphorus (2.5-4.5) mg/dL Magnesium (1.6-2.3) mg/dL Total Bilirubin (0.2-1.3) mg/dL AST (14-36) U/L ALT (4-34) U/L Alkaline Phosphatase (38-126) U/L Troponin I (0.000-0.034) ng/mL NT-Pro-B Natriuret Pep pg/mL Total Protein (6.3-8.2) g/dL Albumin (3.5-5.0) g/dL Blood Type Blood Type Recheck Bld Type Recheck Status Antibody Screen Spec Expiration Date - EKG Data -: EKG Interpreted by Me (EKG is sinus rhythm 78 HI 202 QRS 110 QTc 440) Disposition Clinical Impression: Lower GI hemorrhage Disposition: ADMITTED IP TO THIS HOSP Condition: Fair Additional Instructions: Scheduling will contact patient with the time of her colonoscopy Patient can have full liquids on Friday and then start clear liquids on Friday Patient should be nothing by mouth after midnight on Friday Prescriptions: Peg 3350-Na Sulf,Bicarb,Cl/KCl [Golytely Lavage] 4,000 ml PO DIRECTED #1 each Is patient prescribed a controlled substance at d/c from ED?: No Referrals: Finesse Castaneda DO [Primary Care Provider] - 1-2 days Nabor Weston MD [STAFF PHYSICIAN] - 07/23/21
[2021-07-20 01:02] LABS: Basophils # (A) 0.2 k/uL (0-0.2); Basophils % (A) 2 %; Eosinophils # (A) 0.3 k/uL (0-0.7); Eosinophils % (A) 3 %; HCT 42.4 % (34.0-46.0); HGB 13.4 gm/dL (11.4-16.0); Lymphocytes # (A) 1.9 k/uL (1.0-4.8); Lymphocytes % (A) 18 %; MCH 28.8 pg (25.0-35.0); MCHC 31.6 g/dL (31.0-37.0); MCV 91.3 fL (80.0-100.0); Mean Platelet Volume 8.9; Monocytes # (A) 0.6 k/uL (0-1.0); Monocytes % (A) 6 %; Neutrophils # (A) 7.3 k/uL (1.3-7.7); Neutrophils % (A) 69 %; Platelet Count 209 k/uL (150-450); RBC 4.65 m/uL (3.80-5.40); RDW 13.3 % (11.5-15.5); WBC 10.5 k/uL (3.8-10.6)
[2021-07-20 01:07] VITALS: RESP 18
[2021-07-20 01:17] LABS: Calcium 9.5 mg/dL (8.4-10.2); Magnesium 2.1 mg/dL (1.6-2.3); Phosphorus 3.6 mg/dL (2.5-4.5); Potassium 4.1 mmol/L (3.5-5.1); Total Bilirubin 0.5 mg/dL (0.2-1.3); Total Protein 7.5 g/dL (6.3-8.2)
[2021-07-20 01:20] LABS: Partial Thromboplastin Time 26.1 sec (22.0-30.0); Prothrombin Time 10.6 sec (9.0-12.0)
[2021-07-20] MEDS ORDERED: NALOXONE 0.4 MG/ML 1 ML VIAL IV PRN (02:33)
[2021-07-20] MEDS ORDERED: MORPHINE SULFATE 4 MG/ML SYRINGE IV PRN (02:33)
[2021-07-20] MEDS ORDERED: ONDANSETRON 4 MG/2 ML VIAL IVP PRN (02:33)
[2021-07-20] MEDS: SODIUM CHLORIDE 0.9% 1,000 ML IV SCH ×2 (03:22→11:58)
--- NOTE | 2021-07-20 04:05 | P.HPIM ---
History of Present Illness H&P Date: 07/20/21 The patient is an 85-year-old female with a PMH of A. fib (not on anticoagulation), hyperlipidemia, hypertension, GERD, hypothyroidism, mitral valve replacement, diverticulosis, who presents to the emergency room with complaints of bloody bowel movements. The patient reports that her symptoms started this evening, when she suddenly developed grossly bloody large bowel movement. She reports some clots without any black tarry material. She also reports mild nausea which resolved following the bowel movement. She notes to total episodes of bloody bowel movements at home and subsequently 2 more hair at the hospital which were significantly smaller. Reports no physical complaints at the time of interview. Denied experiencing fever, chills, cough, nausea, vomiting. Denied chest discomfort, shortness of breath. Of note, the patient was admitted in 10/2019 for GI bleeding at which time a colonoscopy revealed pandiverticulosis with a cecal polyp removed and low-grade internal hemorrhoids. Laboratory evaluation in the emergency room revealed a hemoglobin of 13.4 (similar to baseline). Review of systems: Pertinent positives and negatives as discussed in HPI, a complete review of syst ems was performed and all other systems are negative. Physical examination: General: non toxic, no distress, appears younger than stated age, normal weight Derm: no unusual rashes/lesions no unusual ecchymoses, warm, dry Head: atraumatic, normocephalic, symmetric Eyes: EOMI, no lid lag, anicteric sclera, pupils equal round reactive to light ENT: Nose and ears atraumatic, no thrush, no pharyngeal erythema Neck: No thyromegaly, no cervical lymphadenopathy, trachea midline, supple Mouth: no lip lesion, mucus membranes moist Cardiovascular: S1S2 reg, no murmur, positive posterior tibial pulse bilateral, no edema, capillary refill less than 2 seconds Lungs: CTA bilateral, no rhonchi, no rales , no accessory muscle use Abdominal: soft, nontender to palpation, no guarding, no appreciable organ omegaly, normal bowel sounds Ext: no gross muscle atrophy, muscle strength 5 out of 5 in all 4 extremities grossly, no contractures, Neuro: CN II-XI grossly intact, light touch intact all 4 extremities, finger to nose within normal limits, Psych: Alert, oriented, appropriate affect Assessment/plan Bright red blood in stools with history of hemorrhoids and diverticulosis -Monitor CBC -Surgery consult for EGD/colonoscopy -Protonix IV -Gentle IV hydration -NPO DVT prophylaxis -IPCDs The patient is admitted with an anticipated less than 2 midnight stay for evaluation of BRBPR CODE STATUS: Full Code Discussed with: Patient Anticipated discharge date: in am Anticipated discharge place: Home Past Medical History Past Medical History: Atrial Fibrillation, GERD/Reflux, Hyperlipidemia, Hypertension, Osteoarthritis (OA), Pneumonia, Thyroid Disorder Additional Past Medical History / Comment(s): Afib with RVR, mitral valve pr olapse/murmur-had mitral valve replacement, gallbladder dyskinesia, diverticulosis, UTIs, hypothyroid, arthritis bilateral hands fingers. History of Any Multi-Drug Resistant Organisms: None Reported Past Surgical History: Appendectomy, Cardiac Valve Replacement Additional Past Surgical History / Comment(s): TEEs, cardiac caths, 2010 mitral valve replacement, colonoscopies, bilateral cataract removals/lens implants. Past Anesthesia/Blood Transfusion Reactions: No Reported Reaction, Motion Sickness Additional Past Anesthesia/Blood Transfusion Reaction / Comment(s): Bruno terphobia Past Psychological History: No Psychological Hx Reported Smoking Status: Never smoker Past Alcohol Use History: None Reported Past Drug Use History: None Reported - Past Family History Father Family Medical History: Cancer Additional Family Medical History / Comment(s): Father from lung/brain cancer. He was a smoker and a drinker. Mother Family Medical History: Diabetes Mellitus Sister(s) Family Medical History: Prostate Disorder Additional Family Medical History / Comment(s): Pt has one sister with diabetes and another sister with multiple sclerosis. Medications and Allergies Home Medications Medication Instructions Recorded Confirmed Type Cholecalciferol [Vitamin D3 (25 25 mcg PO DAILY 11/18/19 06/06/21 History Mcg = 1000 Iu)] Levothyroxine Sodium [Synthroid] 100 mcg PO DAILY 11/18/19 06/06/21 History Magnesium Oxide [Mag-Ox] 250 mg PO HS 11/18/19 06/06/21 History Metoprolol Succinate (ER) [Toprol 50 mg PO BID 11/18/19 06/06/21 History XL] Simvastatin [Zocor] 10 mg PO HS 11/18/19 06/06/21 History Ascorbic Acid [Vitamin C] 1,000 mg PO HS 05/27/21 06/06/21 History L.acidoph,Paracasei, B.lactis 1 cap PO DAILY 05/27/21 06/06/21 History [Probiotic] Multivit-Min/FA/Lycopen/Lutein 1 tab PO DAILY 05/27/21 06/06/21 History [Centrum Silver Tablet] Zinc 50 mg PO HS 05/27/21 06/06/21 History lisinopriL 2.5 mg PO DAILY 05/27/21 06/06/21 History Acetaminophen Tab [Tylenol Tab] 650 mg PO Q4H PRN #30 tablet 05/28/21 06/06/21 Rx Albuterol Inhaler [Ventolin Hfa 2 puff INHALATION RT-TID #8 gm 06/06/21 Rx Inhaler] Benzonatate [Tessalon Perles] 100 mg PO BID #15 capsule 06/06/21 Rx Cephalexin [Keflex] 500 mg PO BID 06/06/21 06/06/21 History predniSONE 50 mg PO DAILY #5 tab 06/06/21 Rx Allergies Allergy/AdvReac Type Severity Reaction Status Date / Time Latex, Natural Rubber Allergy Rash/Hives Verified 06/06/21 16:00 Physical Exam Vitals: Vital Signs Temp Pulse Resp BP Pulse Ox 07/20/21 01:07 84 18 129/71 98 07/19/21 22:24 97.7 F 86 16 137/77 97 Intake and Output 07/19/21 07/19/21 07/20/21 14:59 22:59 06:59 Other: Weight 68.039 kg Results CBC & Chem 7: 07/20/21 00:46 07/20/21 00:46 Labs: Abnormal Lab Results - Last 24 Hours (Table) 07/20/21 Range/Units 00:46 Glucose 117 H (74-99) mg/dL
[2021-07-20] MEDS: PANTOPRAZOLE 40 MG/10 ML VIAL IVP SCH ×2 (04:56→09:53)
[2021-07-20 07:12] VITALS: BP 128/70; PULSE 65
[2021-07-20 09:55] LABS: HCT 41.9 % (34.0-46.0); HGB 13.3 gm/dL (11.4-16.0); MCH 29.5 pg (25.0-35.0); MCHC 31.7 g/dL (31.0-37.0); MCV 93.3 fL (80.0-100.0); Platelet Count 217 k/uL (150-450); RBC 4.49 m/uL (3.80-5.40); RDW 13.9 % (11.5-15.5); WBC 7.6 k/uL (3.8-10.6)
--- NOTE | 2021-07-20 13:36 | P.GSCN ---
History of Present Illness Consult date: 07/20/21 History of present illness: CHIEF COMPLAINT: GI bleed HISTORY OF PRESENT ILLNESS: This 85-year-old female with a history of diverticulosis and previous GI bleed in October 2019. She had a colonoscopy done on that time which revealed pandiverticulosis, severe diverticulosis of the sigmoid colon, cecal polyp and low-grade internal hemorrhoids. No active bleeding seen. Patient reports that at 7 PM last night she she had some lower abdominal cramping felt that need to have a bowel movement in which she thought she was good have diarrhea but instead she passed a large amount of blood. She had 2 episodes of bleeding at home and then presented to the emergency for for further evaluation. Through the night she had a total of 6 more episodes of bleeding. She denies any abdominal pain. No further bleeding noted today. Denies any nausea or vomiting. Her hemoglobin has remained stable at 13.3. She is not on any anticoagulation. PAST MEDICAL HISTORY: Atrial Fibrillation, GERD/Reflux, Hyperlipidemia, Hypertension, Osteoarthritis (OA), Pneumonia, Thyroid Disorder, mitral valve prolapse/murmur-had mitral valve replacement, gallbladder dyskinesia, diverticulosis, UTIs, hypothyroid, arthritis bilateral hands fingers. PAST SURGICAL HISTORY: Appendectomy, Cardiac Valve Replacement MEDICATIONS: See list. ALLERGIES: See list. SOCIAL HISTORY: No illicit drug use. REVIEW OF SYSTEMS: CONSTITUTIONAL: Denies fever or chills. HEENT: Denies blurred vision, vision changes, or eye pain. Denies hemoptysis CARDIOVASCULAR: Denies chest pain or pressure. RESPIRATORY: No shortness of breath. GASTROINTESTINAL: See HPI for pertinent findings HEMATOLOGIC: Denies bleeding disorders. GENITOURINARY: Denies any blood in urine or increased urinary frequency. SKIN: Denies pruitis. Denies rash. PHYSICAL EXAM: VITAL SIGNS: Reviewed GENERAL: Well-developed in no acute distress. HEENT: No sclera icterus. Extraocular movements grossly intact. Moist buccal mucosa. Head is atraumatic, normocephalic. No nasal drainage. ABDOMEN: Soft. Nondistended. Nontender NEUROLOGIC: Alert and oriented. Cranial nerves II through XII grossly intact. LABORATORY DATA: WBC 10.5 hgb13.4 with repeat 13.3 Plt 217 Sodium 140 potassium 4.1 creatinine 0.9 Lactic 1.8 Troponin negative IMAGING: ASSESSMENT: 1. Acute GI bleed with bright red blood per rectum 2. History of diverticulosis 3. History of possible diverticular bleed PLAN: -Patient scheduled for EGD and colonoscopy outpatient on 07/23/[address] resendez -Patient given prescription for GoLYTELY prep -Patient can be discharged from surgical standpoint Thank you for this consultation Physician Hot Walker note has been reviewed by physician. Signing provider agrees with the documented findings, assessment, and plan of care. Past Medical History Past Medical History: Atrial Fibrillation, GERD/Reflux, Hyperlipidemia, Hypertension, Osteoarthritis (OA), Pneumonia, Thyroid Disorder Additional Past Medical History / Comment(s): Afib with RVR, mitral valve prolapse/murmur-had mitral valve replacement, gallbladder dyskinesia, diverticulosis, UTIs, hypothyroid, arthritis bilateral hands fingers. History of Any Multi-Drug Resistant Organisms: None Reported Past Surgical History: Appendectomy, Cardiac Valve Replacement Additional Past Surgical History / Comment(s): TEEs, cardiac caths, 2010 mitral valve replacement, colonoscopies, bilateral cataract removals/lens implants. Past Anesthesia/Blood Transfusion Reactions: No Reported Reaction, Motion Sickness Additional Past Anesthesia/Blood Transfusion Reaction / Comm: Clausterphobia Past Psychological History: No Psychological Hx Reported Smoking Status: Never smoker Past Alcohol Use History: None Reported Past Drug Use History: None Reported - Past Family History Father Family Medical History: Cancer Additional Family Medical History / Comment(s): Father from lung/brain cancer. He was a smoker and a drinker. Mother Family Medical History: Diabetes Mellitus Sister(s) Family Medical History: Prostate Disorder Additional Family Medical History / Comment(s): Pt has one sister with diabetes and another sister with multiple sclerosis. Medications and Allergies Home Medications Medication Instructions Recorded Confirmed Type Levothyroxine Sodium [Synthroid] 100 mcg PO DAILY 11/18/19 07/20/21 History Magnesium Oxide [Mag-Ox] 250 mg PO HS 11/18/19 07/20/21 History Metoprolol Succinate (ER) [Toprol 50 mg PO BID 11/18/19 07/20/21 History XL] Simvastatin [Zocor] 10 mg PO HS 11/18/19 07/20/21 History Ascorbic Acid [Vitamin C] 1,000 mg PO HS 05/27/21 07/20/21 History L.acidoph,Paracasei, B.lactis 1 cap PO DAILY 05/27/21 07/20/21 History [Probiotic] Multivit-Min/FA/Lycopen/Lutein 1 tab PO DAILY 05/27/21 07/20/21 History [Centrum Silver Tablet] Zinc 50 mg PO HS 05/27/21 07/20/21 History lisinopriL 2.5 mg PO DAILY 05/27/21 07/20/21 History Aspirin EC [Ecotrin Low Dose] 81 mg PO HS 07/20/21 07/20/21 History Cholecalciferol [Vitamin D3 (25 25 mcg PO DAILY 07/20/21 07/20/21 History Mcg = 1000 Iu)] Peg 3350-Na Sulf,Bicarb,Cl/KCl 4,000 ml PO DIRECTED #1 each 07/20/21 Rx [Golytely Lavage] Allergies Allergy/AdvReac Type Severity Reaction Status Date / Time Latex, Natural Rubber Allergy Rash/Hives Verified 07/20/21 07:12 Surgical - Exam Vital Signs Temp Pulse Resp BP Pulse Ox 97.7 F 86 16 137/77 97 07/19/21 22:24 07/19/21 22:24 07/19/21 22:24 07/19/21 22:24 07/19/21 22:24 Results - Labs 07/20/21 09:12 07/20/21 00:46 Abnormal Lab Results - Last 24 Hours (Table) 07/20/21 Range/Units 00:46 Glucose 117 H (74-99) mg/dL Diabetes panel 07/20/21 Range/Units 00:46 Sodium 140 (137-145) mmol/L Potassium 4.1 (3.5-5.1) mmol/L Chloride 105 (98-107) mmol/L Carbon Dioxide 28 (22-30) mmol/L BUN 16 (7-17) mg/dL Creatinine 0.90 (0.52-1.04) mg/dL Glucose 117 H (74-99) mg/dL Calcium 9.5 (8.4-10.2) mg/dL AST 28 (14-36) U/L ALT 16 (4-34) U/L Alkaline Phosphatase 93 (38-126) U/L Total Protein 7.5 (6.3-8.2) g/dL Albumin 4.0 (3.5-5.0) g/dL Calcium panel 07/20/21 Range/Units 00:46 Calcium 9.5 (8.4-10.2) mg/dL Phosphorus 3.6 (2.5-4.5) mg/dL Albumin 4.0 (3.5-5.0) g/dL Pituitary panel 07/20/21 Range/Units 00:46 Sodium 140 (137-145) mmol/L Potassium 4.1 (3.5-5.1) mmol/L Chloride 105 (98-107) mmol/L Carbon Dioxide 28 (22-30) mmol/L BUN 16 (7-17) mg/dL Creatinine 0.90 (0.52-1.04) mg/dL Glucose 117 H (74-99) mg/dL Calcium 9.5 (8.4-10.2) mg/dL Adrenal panel 07/20/21 Range/Units 00:46 Sodium 140 (137-145) mmol/L Potassium 4.1 (3.5-5.1) mmol/L Chloride 105 (98-107) mmol/L Carbon Dioxide 28 (22-30) mmol/L BUN 16 (7-17) mg/dL Creatinine 0.90 (0.52-1.04) mg/dL Glucose 117 H (74-99) mg/dL Calcium 9.5 (8.4-10.2) mg/dL Total Bilirubin 0.5 (0.2-1.3) mg/dL AST 28 (14-36) U/L ALT 16 (4-34) U/L Alkaline Phosphatase 93 (38-126) U/L Total Protein 7.5 (6.3-8.2) g/dL Albumin 4.0 (3.5-5.0) g/dL
--- NOTE | 2021-07-20 14:21 | P.DS ---
Providers Date of admission: 07/20/21 02:33 Expected date of discharge: 07/20/21 Attending physician: Davion Hernandez MD Consults: 07/20/21 04:04 Consult Physician Urgent Consulting Provider: Nabor Weston Consult Reason/Comments: GIB Do you want consulting provider notified?: Yes [facility] Course: 85-year-old female with a PMH of A. fib (not on anticoagulation), hyperlipidemia, hypertension, GERD, hypothyroidism, mitral valve replacement, diverticulosis, who presents to the emergency room with complaints of BRBPR. She reports some clots as well without any black tarry material. She also reports mild nausea which resolved following the bowel movement. She notes to total of 2 episodes of bloody bowel movements at home. Denied experiencing fever, chills, cough, nausea, vomiting. Denied chest discomfort, shortness of breath. Of note, the patient was admitted in 10/2019 for GI bleeding at which time a colonoscopy revealed pandiverticulosis with a cecal polyp removed and low-grade internal hemorrhoids. Laboratory evaluation in the emergency room revealed a hemoglobin of 13.4 (similar to baseline). Patient was observed overnight. Hgb remained stable and she just had a normal Bm without ay blood. She is currently doing very well. No symptoms. She was seen by surgery and will be scheduled for colonoscopy on Friday. She will be discharged in a stable condition. Patient Condition at Discharge: Fair Plan - Discharge Summary Discharge Rx Participant: No New Discharge Prescriptions: New Peg 3350-Na Sulf,Bicarb,Cl/KCl [Golytely Lavage] 4,000 ml PO DIRECTED #1 each Continue Magnesium Oxide [Mag-Ox] 250 mg PO HS Simvastatin [Zocor] 10 mg PO HS Metoprolol Succinate (ER) [Toprol XL] 50 mg PO BID Levothyroxine Sodium [Synthroid] 100 mcg PO DAILY Ascorbic Acid [Vitamin C] 1,000 mg PO HS Zinc 50 mg PO HS L.acidoph,Paracasei, B.lactis [Probiotic] 1 cap PO DAILY lisinopriL 2.5 mg PO DAILY Multivit-Min/FA/Lycopen/Lutein [Centrum Silver Tablet] 1 tab PO DAILY Cholecalciferol [Vitamin D3 (25 Mcg = 1000 Iu)] 25 mcg PO DAILY Discontinued Aspirin EC [Ecotrin Low Dose] 81 mg PO HS Discharge Medication List Levothyroxine Sodium [Synthroid] 100 mcg PO DAILY 11/18/19 [History] Magnesium Oxide [Mag-Ox] 250 mg PO HS 11/18/19 [History] Metoprolol Succinate (ER) [Toprol XL] 50 mg PO BID 11/18/19 [History] Simvastatin [Zocor] 10 mg PO HS 11/18/19 [History] Ascorbic Acid [Vitamin C] 1,000 mg PO HS 05/27/21 [History] L.acidoph,Paracasei, B.lactis [Probiotic] 1 cap PO DAILY 05/27/21 [History] Multivit-Min/FA/Lycopen/Lutein [Centrum Silver Tablet] 1 tab PO DAILY 05/27/21 [History] Zinc 50 mg PO HS 05/27/21 [History] lisinopriL 2.5 mg PO DAILY 05/27/21 [History] Cholecalciferol [Vitamin D3 (25 Mcg = 1000 Iu)] 25 mcg PO DAILY 07/20/21 [History] Peg 3350-Na Sulf,Bicarb,Cl/KCl [Golytely Lavage] 4,000 ml PO DIRECTED #1 each 07/20/21 [Rx] Follow up Appointment(s)/Referral(s): Finesse Castaneda DO [Primary Care Provider] - 1-2 days Nabor Weston MD [STAFF PHYSICIAN] - 07/23/21 Activity/Diet/Wound Care/Special Instructions: Scheduling will contact patient with the time of her colonoscopy Patient can have full liquids on Friday and then start clear liquids on Friday Patient should be nothing by mouth after midnight on Friday
== END 2021-07-20 16:40 | disposition other institution (70) ==
LOC: EC 20:54 → UNDOADMOB 07-20 02:33 → 6NMEDSUR 07-20 02:33 → EC 07-20 16:40
DX: K92.2 Gastrointestinal hemorrhage, unspecified (principal); I10 Essential (primary) hypertension; E78.5 Hyperlipidemia, unspecified; E03.9 Hypothyroidism, unspecified; I48.91 Unspecified atrial fibrillation; K21.9 Gastro-esophageal reflux disease without esophagitis; M19.90 Unspecified osteoarthritis, unspecified site; Z79.890 Hormone replacement therapy; Z79.899 Other long term (current) drug therapy
CPT/HCPCS: 99285; 96374; 96361 ×2; 36415; 93005; 86900; 86901; 83880; 80053; 83605; 83735; 84100; 84484; 85025; 85027; 85610; 85730; 86850; C9113

== ENCOUNTER 2021-07-23 10:21 | Day surgery (SDC) | payer MEDICARE ==
[2021-07-23 10:56] VITALS: TEMP 96.9
[2021-07-23] MEDS ORDERED: LACTATED RINGERS 1,000 ML IV ONE (10:59)
[2021-07-23] MEDS ORDERED: LIDOCAINE 1% (10MG/ML) FOR IV START INTRADERMA ONE (10:59)
[2021-07-23] MEDS ORDERED: PROPOFOL 10 MG/ML 20 ML VIAL IV ONE (12:10)
[2021-07-23] MEDS ORDERED: LIDOCAINE 2% INJ 20 MG/ML (2 ML VIAL) ONE (12:10)
--- NOTE | 2021-07-23 12:12 | P.GSHP ---
History of Present Illness H&P Date: 07/23/21 Chief Complaint: GI bleed This is a 85-year-old female who presents today for GI bleed. Patient recent history of bright red rectal bleeding. She received blood transfusion last week. She denies any significant bleeding since her discharge last Friday. Past Medical History Past Medical History: Atrial Fibrillation, GERD/Reflux, Hyperlipidemia, Hypertension, Osteoarthritis (OA), Pneumonia, Thyroid Disorder Additional Past Medical History / Comment(s): Afib with RVR, mitral valve prolapse/murmur-had mitral valve replacement, gallbladder dyskinesia, diverticulosis, UTIs, hypothyroid, arthritis bilateral hands fingers. History of Any Multi-Drug Resistant Organisms: None Reported Past Surgical History: Appendectomy, Cardiac Valve Replacement Additional Past Surgical History / Comment(s): TEEs, cardiac caths, 2010 mitral valve replacement, colonoscopies, bilateral cataract removals/lens implants. Past Anesthesia/Blood Transfusion Reactions: No Reported Reaction, Motion Sickness Additional Past Anesthesia/Blood Transfusion Reaction / Comment(s): Clausterphobia Past Psychological History: No Psychological Hx Reported Smoking Status: Never smoker Past Alcohol Use History: None Reported Past Drug Use History: None Reported - Past Family History Father Family Medical History: Cancer Additional Family Medical History / Comment(s): Father from lung/brain cancer. He was a smoker and a drinker. Mother Family Medical History: Diabetes Mellitus Sister(s) Family Medical History: Prostate Disorder Additional Family Medical History / Comment(s): Pt has one sister with diabetes and another sister with multiple sclerosis. Medications and Allergies Home Medications Medication Instructions Recorded Confirmed Type Levothyroxine Sodium [Synthroid] 100 mcg PO DAILY 11/18/19 07/23/21 History Magnesium Oxide [Mag-Ox] 250 mg PO HS 11/18/19 07/23/21 History Metoprolol Succinate (ER) [Toprol 50 mg PO BID 11/18/19 07/23/21 History XL] Simvastatin [Zocor] 10 mg PO HS 11/18/19 07/23/21 History Ascorbic Acid [Vitamin C] 1,000 mg PO HS 05/27/21 07/23/21 History L.acidoph,Paracasei, B.lactis 1 cap PO DAILY 05/27/21 07/23/21 History [Probiotic] Multivit-Min/FA/Lycopen/Lutein 1 tab PO DAILY 05/27/21 07/23/21 History [Centrum Silver Tablet] Zinc 50 mg PO HS 05/27/21 07/23/21 History lisinopriL 2.5 mg PO DAILY 05/27/21 07/23/21 History Cholecalciferol [Vitamin D3 (25 25 mcg PO DAILY 07/20/21 07/23/21 History Mcg = 1000 Iu)] Peg 3350-Na Sulf,Bicarb,Cl/KCl 4,000 ml PO DIRECTED #1 each 07/20/21 07/23/21 Rx [Golytely Lavage] Allergies Allergy/AdvReac Type Severity Reaction Status Date / Time Latex, Natural Rubber Allergy Rash/Hives Verified 07/23/21 10:57 Surgical - Exam Vital Signs Temp Pulse Resp BP Pulse Ox 96.9 F L 101 H 18 138/77 97 07/23/21 10:55 07/23/21 10:55 07/23/21 10:55 07/23/21 10:55 07/23/21 10:55 - General well developed, well nourished, no distress - Eyes PERRL - ENT normal pinna - Neck no masses - Respiratory normal expansion - Cardiovascular Rhythm: regular - Abdomen Abdomen: soft, non tender Assessment and Plan Assessment: History of GI bleed. We'll perform colonoscopy. And EGD
--- NOTE | 2021-07-23 12:42 | P.OP ---
Date of Procedure: 07/23/21 Preoperative Diagnosis: GI bleed Postoperative Diagnosis: Antral gastritis Severe diverticulosis of colon Hemorrhoids Procedure(s) Performed: EGD Colonoscopy Anesthesia: MAC Surgeon: Nabor Weston Pathology: other (Antrum) Condition: stable Disposition: PACU Description of Procedure: The patient's placed on the endoscopy table in the lateral position. He received IV sedation. The gastro-/oropharynx passed in the esophagus into the stomach. Scope was then placed through the pylorus. The first and second portion of the duodenum appeared normal. Scope was then brought back the antrum this appeared mildly inflamed. A biopsies performed. The GE junction was at 38 7 is. Scope was then retroflexed and the remainder of the stomach appeared normal. There was a small hiatal hernia. The distal esophagus appeared normal. The proximal esophagus. Normal. Scope withdrawn for patient. Next digital rectal exam was performed. This revealed internal and external hemorrhoids. Flexible colonoscope was then placed patient anus passed throughout the colon. The colonoscope could not be advanced beyond the hepatic flexure secondary to severe tortuosity of the bowel and significant diverticular disease. The transverse colon appeared normal. In the descending and; there is extensive diverticular disease. Some of the diverticula had lumens bhesania lumen size of the colon. The scope was brought back the rectum appeared normal. Scope withdrawn for patient. There is no evidence of any obvious GI bleed. His presumed patient may have had rectal bleeding from diverticulosis.
[2021-07-23 12:58] VITALS: BP 123/59; PULSE 79; RESP 18
== END 2021-07-23 13:36 | disposition home or self-care (01) ==
LOC: ORWHC2ENDO 10:21
PROVIDERS: ATTEND Surgery
DX: K29.50 Unspecified chronic gastritis without bleeding (principal); K57.30 Diverticulosis of large intestine without perforation or abscess without bleeding; K64.9 Unspecified hemorrhoids; E03.9 Hypothyroidism, unspecified; E78.5 Hyperlipidemia, unspecified; I10 Essential (primary) hypertension; I34.1 Nonrheumatic mitral (valve) prolapse; I48.91 Unspecified atrial fibrillation; M19.041 Primary osteoarthritis, right hand; M19.042 Primary osteoarthritis, left hand; K21.9 Gastro-esophageal reflux disease without esophagitis; Z83.3 Family history of diabetes mellitus; Z87.440 Personal history of urinary (tract) infections; Z90.49 Acquired absence of other specified parts of digestive tract; Z91.040 Latex allergy status
CPT/HCPCS: 45378; 43239; 88305; J2704; J2001

== ENCOUNTER 2024-02-22 10:16 | Inpatient (IN) | payer MEDICARE ==
--- NOTE | 2024-02-22 10:38 | ED ---
General Adult HPI - General Chief complaint: Shortness of Breath Stated complaint: SOB Time Seen by Provider: 02/22/24 10:20 Source: patient, RN notes reviewed, old records reviewed Mode of arrival: wheelchair Limitations: no limitations - History of Present Illness Initial comments: This is an 88-year-old female with a past medical history significant for atrial fibrillation she is currently on Eliquis. Patient states she comes in today because she has been short of breath for a week and is getting worse. Patient states she also has noted her pulse to be high. Patient family is with her and they stated yesterday she seemed somewhat confused so they did 1 nurse to try and check if she has urinary tract infection because in the past that is made her confused. Patient denies any chest pain or any fever chills or cough. Patient denies abdominal pain patient has nausea vomiting or diarrhea. - Related Data Home Medications Medication Instructions Recorded Confirmed Simvastatin [Zocor] 10 mg PO HS 11/18/19 02/22/24 L.acidoph,Paracasei, B.lactis 1 cap PO DAILY 05/27/21 02/22/24 [Probiotic] Multivit-Min/FA/Lycopen/Lutein 1 tab PO DAILY 05/27/21 02/22/24 [Centrum Silver Tablet] Zinc 50 mg PO HS 05/27/21 02/22/24 lisinopriL 2.5 mg PO DAILY 05/27/21 02/22/24 Cholecalciferol [Vitamin D3 (25 25 mcg PO BID 07/20/21 02/22/24 Mcg = 1000 Iu)] Apixaban [Eliquis] 2.5 mg PO BID 02/22/24 02/22/24 Ascorbic Acid [Vitamin C] 500 mg PO HS 02/22/24 02/22/24 Aspirin EC [Ecotrin Low Dose] 81 mg PO HS 02/22/24 02/22/24 Levothyroxine Sodium [Synthroid] 88 mcg PO DAILY 02/22/24 02/22/24 Magnesium Oxide [Magnesium] 500 mg PO HS 02/22/24 02/22/24 Metoprolol Succinate (ER) [Toprol 50 mg PO HS 02/22/24 02/22/24 Xl] Metoprolol Succinate [Toprol XL] 100 mg PO DAILY 02/22/24 02/22/24 Allergies Allergy/AdvReac Type Severity Reaction Status Date / Time Latex, Natural Rubber Allergy Rash/Hives Verified 02/22/24 11:11 Review of Systems ROS Statement: Those systems with pertinent positive or pertinent negative responses have been documented in the HPI. ROS Other: All systems not noted in ROS Statement are negative. Past Medical History Past Medical History: Atrial Fibrillation, GERD/Reflux, Hearing Disorder / Deafness, Hyperlipidemia, Hypertension, Osteoarthritis (OA), Pneumonia, Thyroid Disorder Additional Past Medical History / Comment(s): Afib with RVR, mitral valve prolapse/murmur-had mitral valve replacement, gallbladder dyskinesia, diverticulosis, UTIs, hypothyroid, arthritis bilateral hands fingers. History of Any Multi-Drug Resistant Organisms: None Reported Past Surgical History: Appendectomy, Cardiac Valve Replacement Additional Past Surgical History / Comment(s): TEEs, cardiac caths, 2011 mitral valve replacement, colonoscopies, bilateral cataract removals/lens implants. Past Anesthesia/Blood Transfusion Reactions: No Reported Reaction, Motion Sickness Additional Past Anesthesia/Blood Transfusion Reaction / Comment(s): Clausterphobia Past Psychological History: No Psychological Hx Reported Smoking Status: Never smoker Past Alcohol Use History: None Reported Past Drug Use History: None Reported - Past Family History Father Family Medical History: Cancer Additional Family Medical History / Comment(s): Father from lung/brain cancer. He was a smoker and a drinker. Mother Family Medical History: Diabetes Mellitus Sister(s) Family Medical History: Prostate Disorder Additional Family Medical History / Comment(s): Pt has one sister with diabetes and another sister with multiple sclerosis. General Exam - General Exam Comments Initial Comments: GENERAL: Patient is well-developed and well-nourished. Patient is nontoxic and well- hydrated and is in mild distress. ENT: Neck is soft and supple. No significant lymphadenopathy is noted. Oropharynx is clear. Moist mucous membranes. Neck has full range of motion without eliciting any pain. EYES: The sclera were anicteric and conjunctiva were pink and moist. Extraocular movements were intact and pupils were equal round and reactive to light. Eyelids were unremarkable. PULMONARY: Unlabored respirations. Good breath sounds bilaterally. No audible rales rhonchi or wheezing was noted. CARDIOVASCULAR: Patient is tachycardic and has an irregular rate and its about 125 beats a minute ABDOMEN: Soft and nontender with normal bowel sounds. SKIN: Skin is clear with no lesions or rashes and otherwise unremarkable. NEUROLOGIC: Patient is alert and oriented x3. Cranial nerves II through XII are grossly intact. Motor and sensory are also intact. Normal speech, volume and content. Symmetrical smile. MUSCULOSKELETAL: Normal extremities with adequate strength and full range of motion. LYMPHATICS: No significant lymphadenopathy is noted PSYCHIATRIC: Normal psychiatric evaluation. Limitations: no limitations Course Vital Signs 02/22/24 02/22/24 02/22/24 10:19 11:41 12:54 Temperature 98.8 F Pulse Rate 137 H 120 H 125 H Respiratory 20 18 16 Rate Blood Pressure 148/98 125/85 127/84 O2 Sat by Pulse 96 95 Oximetry 02/22/24 13:34 Temperature Pulse Rate 113 H Respiratory 18 Rate Blood Pressure 139/74 O2 Sat by Pulse Oximetry Medical Decision Making - Medical Decision Making EKG is interpreted by myself EKG shows atrial fibrillation with rapid ventricular response at 144 bpm QRS is 90 QT interval 313 QTc is 396. Patient's EKG shows no ST segment ovation or depression. Was pt. sent in by a medical professional or institution (, PA, DIRECTOR OF CORPORATE SALES, urgent care, hospital, or custodial...) When possible be specific @ -No Did you speak to anyone other than the patient for history (EMS, parent, family, police, friend...)? What history was obtained from this source @ -No Did you review nursing and triage notes (agree or disagree)? Why? @ -I reviewed and agree with nursing and triage notes Were old charts reviewed (outside hosp., previous admission, EMS record, old EKG, old radiological studies, urgent care reports/EKG's, custodial records)? Report findings @ -No old charts were reviewed Differential Diagnosis? @ -Differential Dyspnea: Coronary syndrome, arrhythmia, tamponade, asthma, COPD, pulmonary embolism, pneumonia, pneumothorax, pulmonary effusion, anaphylaxis, diabetic ketoacidosis, flailed chest, pulmonary contusion, diaphragmatic rupture, anemia, neuromuscular, this is not meant to be an all-inclusive list. EKG interpreted by me (3pts min.). @ -As above X-rays interpreted by me (1pt min.). @ -Chest x-ray shows a new area of fluid versus mass in the right lung. CT interpreted by me (1pt min.). @ -None done U/S interpreted by me (1pt. min.). @ -None done What testing was considered but not performed or refused? (CT, X-rays, U/S, labs)? Why? @ -None What meds were considered but not given or refused? Why? @ -None Did you discuss the management of the patient with other professionals (professionals i.e. , PA, DIRECTOR OF CORPORATE SALES, lab, RT, psych nurse, social media executive, utility plant operative, teacher, evp chief exploration officer, rehabilitation caseworker)? Give summary @ -I spoke with [facility] hospitalist they agreed to admit the patient I admitted the patient I wrote admitting orders Was smoking cessation discussed for >3mins.? @ -No Was critical care preformed (if so, how long)? @ -35 minutes Were there social determinants of health that impacted care today? How? (Homelessness, low income, unemployed, alcoholism, drug addiction, transportation, low edu. Level, literacy, decrease access to med. care, custodial, rehab)? @ -No Was there de-escalation of care discussed even if they declined (Discuss DNR or withdrawal of care, Hospice)? DNR status @ -No What co-morbidities impacted this encounter? (DM, HTN, Smoking, COPD, CAD, Cancer, CVA, ARF, Chemo, Hep., AIDS, mental health diagnosis, sleep apnea, morbid obesity)? @ -None Was patient admitted / discharged? Hospital course, mention meds given and route, prescriptions, significant lab abnormalities, going to OR and other pertinent info. @ -Patient was in A-fib with rapid ventricular response. Patient was placed on Cardizem. Patient was already on Eliquis. Patient also had a mass in the right lung versus a pleural effusion. Patient will be admitted to the hospital to [facility] hospice cardiology be consulted and pulmonary will be consulted Undiagnosed new problem with uncertain prognosis? @ -No Drug Therapy requiring intensive monitoring for toxicity (Heparin, Nitro, Insulin, Cardizem)? @ -No Were any procedures done? @ -No Diagnosis/symptom? @ -A-fib with rapid ventricular response Acute, or Chronic, or Acute on Chronic? @ -Acute Uncomplicated (without systemic symptoms) or Complicated (systemic symptoms)? @ -Complicated Side effects of treatment? @ -No Exacerbation, Progression, or Severe Exacerbation? @ -No Poses a threat to life or bodily function? How? (Chest pain, [place], MT, pneumonia, PE, COPD, DKA, ARF, appy, cholecystitis, CVA, Diverticulitis, Homicidal, Suicidal, threat to staff... and all critical care pts) @ -Yes this can lead to poor perfusion and endorgan dysfunction Diagnosis/symptom? @ -Pleural effusion Acute, or Chronic, or Acute on Chronic? @ -Acute on chronic Uncomplicated (without systemic symptoms) or Complicated (systemic symptoms)? @ -Complicated Side effects of treatment? @ -None Exacerbation, Progression, or Severe Exacerbation] @ -No Poses a threat to life or bodily function? @ -No - Lab Data Result diagrams: 02/22/24 10:58 02/22/24 10:58 Lab Results 02/22/24 02/22/24 02/22/24 Range/Units 10:58 10:58 10:58 WBC 10.1 (3.8-10.6) k/uL RBC 4.06 (3.80-5.40) m/uL Hgb 11.7 (11.4-16.0) gm/dL Hct 36.7 (34.0-46.0) % MCV 90.4 (80.0-100.0) fL MCH 28.7 (25.0-35.0) pg MCHC 31.8 (31.0-37.0) g/dL RDW 15.0 (11.5-15.5) % Plt Count 206 (150-450) k/uL MPV 9.7 Neutrophils % 77 % Lymphocytes % 14 % Monocytes % 7 % Eosinophils % 1 % Basophils % 1 % Neutrophils # 7.8 H (1.3-7.7) k/uL Lymphocytes # 1.4 (1.0-4.8) k/uL Monocytes # 0.7 (0-1.0) k/uL Eosinophils # 0.1 (0-0.7) k/uL Basophils # 0.1 (0-0.2) k/uL PT 12.1 (10.0-12.5) sec INR 1.1 (<1.2) APTT 28.1 (22.0-30.0) sec Sodium 142 (137-145) mmol/L Potassium 3.7 (3.5-5.1) mmol/L Chloride 109 H (98-107) mmol/L Carbon Dioxide 22 (22-30) mmol/L Anion Gap 11 mmol/L BUN 11 (7-17) mg/dL Creatinine 0.82 (0.52-1.04) mg/dL Est GFR (CKD-EPI)AfAm 74 (>60 ml/min/1.73 sqM) Est GFR (CKD-EPI)NonAf 64 (>60 ml/min/1.73 sqM) Glucose 112 H (74-99) mg/dL Plasma Lactic Acid Bryce (0.7-2.0) mmol/L Calcium 9.2 (8.4-10.2) mg/dL Magnesium 2.1 (1.6-2.3) mg/dL Total Bilirubin 1.2 (0.2-1.3) mg/dL AST 35 (14-36) U/L ALT 18 (4-34) U/L Alkaline Phosphatase 72 (38-126) U/L Troponin I (0.000-0.034) ng/mL NT-Pro-B Natriuret Pep 5190 pg/mL Total Protein 7.4 (6.3-8.2) g/dL Albumin 4.1 (3.5-5.0) g/dL Influenza Type A (PCR) (Not Detectd) Influenza Type B (PCR) (Not Detectd) RSV (PCR) (Not Detectd) SARS-CoV-2 (PCR) (Not Detectd) 02/22/24 02/22/24 02/22/24 Range/Units 10:58 10:58 10:58 WBC (3.8-10.6) k/uL RBC (3.80-5.40) m/uL Hgb (11.4-16.0) gm/dL Hct (34.0-46.0) % MCV (80.0-100.0) fL MCH (25.0-35.0) pg MCHC (31.0-37.0) g/dL RDW (11.5-15.5) % Plt Count (150-450) k/uL MPV Neutrophils % % Lymphocytes % % Monocytes % % Eosinophils % % Basophils % % Neutrophils # (1.3-7.7) k/uL Lymphocytes # (1.0-4.8) k/uL Monocytes # (0-1.0) k/uL Eosinophils # (0-0.7) k/uL Basophils # (0-0.2) k/uL PT (10.0-12.5) sec INR (<1.2) APTT (22.0-30.0) sec Sodium (137-145) mmol/L Potassium (3.5-5.1) mmol/L Chloride (98-107) mmol/L Carbon Dioxide (22-30) mmol/L Anion Gap mmol/L BUN (7-17) mg/dL Creatinine (0.52-1.04) mg/dL Est GFR (CKD-EPI)AfAm (>60 ml/min/1.73 sqM) Est GFR (CKD-EPI)NonAf (>60 ml/min/1.73 sqM) Glucose (74-99) mg/dL Plasma Lactic Acid Bryce 1.8 (0.7-2.0) mmol/L Calcium (8.4-10.2) mg/dL Magnesium (1.6-2.3) mg/dL Total Bilirubin (0.2-1.3) mg/dL AST (14-36) U/L ALT (4-34) U/L Alkaline Phosphatase (38-126) U/L Troponin I <0.012 (0.000-0.034) ng/mL NT-Pro-B Natriuret Pep pg/mL Total Protein (6.3-8.2) g/dL Albumin (3.5-5.0) g/dL Influenza Type A (PCR) Not Detected (Not Detectd) Influenza Type B (PCR) Not Detected (Not Detectd) RSV (PCR) Not Detected (Not Detectd) SARS-CoV-2 (PCR) Not Detected (Not Detectd) Disposition Clinical Impression: Atrial fibrillation with rapid ventricular response, Pleural effusion Disposition: ADMITTED IP TO THIS HOSP Referrals: None,Stated [Primary Care Provider] - 1-2 days Time of Disposition: 13:44
[2024-02-22 11:27] LABS: ALT 18 U/L (4-34); AST 35 U/L (14-36); African American GFR (CKD) 74 (>60 ml/min/1.73 sqM); Albumin 4.1 g/dL (3.5-5.0); Alkaline Phosphatase 72 U/L (38-126); Anion Gap 11 mmol/L; Blood Urea Nitrogen 11 mg/dL (7-17); Calcium 9.2 mg/dL (8.4-10.2); Carbon Dioxide 22 mmol/L (22-30); Chloride 109 mmol/L (98-107); Glucose 112 mg/dL (74-99); Magnesium 2.1 mg/dL (1.6-2.3); Non-African American GFR(CKD) 64 (>60 ml/min/1.73 sqM); Sodium 142 mmol/L (137-145); Total Bilirubin 1.2 mg/dL (0.2-1.3); Total Protein 7.4 g/dL (6.3-8.2)
--- NOTE | 2024-02-22 11:28 | XR ---
EXAMINATION TYPE: XR chest 2V DATE OF EXAM: 02/22/2024 11:13 AM COMPARISON: Chest radiographs from 06/06/2021 CLINICAL INDICATION: Female, 88 years old with history of difficulty breathing; TECHNIQUE: XR chest 2V Frontal and lateral views of the chest. FINDINGS: Lungs/Pleura: The right lower lung masslike opacity with increased right perihilar fullness. There is no evidence of pleural effusion, focal consolidation, or pneumothorax. Pulmonary vascularity: Unremarkable. Heart/mediastinum: Cardiomediastinal silhouette is unremarkable. Musculoskeletal: No acute osseous pathology. Midline sternotomy wires are noted. IMPRESSION: New right laterale lower lung consolidation with increased right heart border consolidation. Correlat e for loculated pleural effusion versus mass. Further evaluation of the chest recommended with CT. [facility], , 02/22/2024 11:26 AM
[2024-02-22 11:31] LABS: NT-Pro-B-Type Natriuretic Pept 5190 pg/mL
[2024-02-22 11:32] LABS: INR 1.1 (<1.2); Partial Thromboplastin Time 28.1 sec (22.0-30.0); Prothrombin Time 12.1 sec (10.0-12.5)
[2024-02-22] MEDS: SODIUM CHLORIDE 0.9% 500 ML 500 ML IV STA (11:36)
[2024-02-22 11:38] LABS: Potassium 3.7 mmol/L (3.5-5.1)
[2024-02-22] MEDS: MAGNESIUM SULFATE-D5W PMX 1 GM in DEXTROSE/WATER 1 100ML.BAG IVPB SCH (11:40)
[2024-02-22] MEDS: DILTIAZEM DRIP BOLUS FROM BAG 1 MG SOLN IV ONE (11:43)
[2024-02-22] MEDS: DILTIAZEM 125 MG in SODIUM CHLORIDE 0.9% 100 ML IV SCH (11:44)
[2024-02-22 11:47] LABS: Basophils # (A) 0.1 k/uL (0-0.2); Basophils % (A) 1 %; Eosinophils # (A) 0.1 k/uL (0-0.7); Eosinophils % (A) 1 %; HCT 36.7 % (34.0-46.0); HGB 11.7 gm/dL (11.4-16.0); Lymphocytes # (A) 1.4 k/uL (1.0-4.8); Lymphocytes % (A) 14 %; MCH 28.7 pg (25.0-35.0); MCHC 31.8 g/dL (31.0-37.0); MCV 90.4 fL (80.0-100.0); Mean Platelet Volume 9.7; Monocytes # (A) 0.7 k/uL (0-1.0); Monocytes % (A) 7 %; Neutrophils # (A) 7.8 k/uL (1.3-7.7); Neutrophils % (A) 77 %; Platelet Count 206 k/uL (150-450); RBC 4.06 m/uL (3.80-5.40); WBC 10.1 k/uL (3.8-10.6)
[2024-02-22] MEDS ORDERED: NITROGLYCERIN SL TABS 0.4 MG TAB SUBLINGUAL PRN (13:44)
--- NOTE | 2024-02-22 14:48 | CT ---
EXAMINATION TYPE: CT chest angio for PE DATE OF EXAM: 02/22/2024 2:39 PM COMPARISON: Previous chest radiograph 02/22/2024. CLINICAL INDICATION: Female, 88 years old with history of Pleural effusion versus mass; chest mass/pl eural effusions TECHNIQUE/CONTRAST: CTA scan of the thorax is performed with IV Contrast, patient injected with 100 mL of Isovue 370, MIP images are created and reviewed these are created on a separate workstation.. CT DLP: 260.5 mGycm, Automated exposure control for dose reduction was used. FINDINGS: Pulmonary Artery: There is no evidence for a filling defect within the pulmonary vasculature to sugge st acute pulmonary embolism. Dilated main pulmonary artery measuring 3.6 cm in diameter. Lungs/Pleura: Small bilateral pleural effusions with adjacent lower lobe compressive atelectasis. Mil d interlobular septal thickening in the bilateral lungs. No definite suspicious pulmonary mass. Airway: Large airways are patent. Heart: Marked cardiomegaly. Coronary artery calcifications. Vasculature: No evidence of aortic aneurysm. Mediastinum: No gross evidence of adenopathy. Musculoskeletal: No acute osseous abnormalities Soft Tissues/lymph nodes: Unremarkable. Lower neck: No significant findings. Upper Abdomen: No significant findings. IMPRESSION: 1. No evidence of acute pulmonary embolism. 2. Cardiomegaly, bilateral pleural effusions and interlobular septal thickening suggesting pulmonary edema. [facility], , 02/22/2024 2:46 PM
[2024-02-22 15:17] LABS: Appearance,Urine Cloudy (Clear); Bacteria,Urine Rare /hpf; Bilirubin,Urine Negative (Negative); Blood,Urine Negative (Negative); Color,Urine Light Yellow; Glucose,Urine (UA) Negative (Negative); Ketones,Urine Negative (Negative); Leukocyte Esterase,Urine Negative (Negative); Mucus,Urine Rare /hpf; Nitrite,Urine Negative (Negative); PH, Urine 6.5 (5.0-8.0); Protein,Urine Negative (Negative); RBC,Urine 2 /hpf (0-5); Specific Gravity,Urine 1.023 (1.001-1.035); Squamous Epithelial Cell,Urine <1 /hpf (0-4); Urobilinogen,Urine <2.0 mg/dL (<2.0); WBC,Urine 6 /hpf (0-5)
--- NOTE | 2024-02-22 15:21 | P.CNPUL ---
History of Present Illness Consult date: 02/22/24 Reason for consult: dyspnea History of present illness: This is a 88-year-old female patient, presenting to the hospital because of shortness of breath. The patient has been having increased dyspnea for around a week and her condition has gotten progressively worse. She was also noted to have some tachycardia and confusion and altered mentation. Denied having any chest pain. Denied having any fever or chills. No cough or sputum production. No nausea vomiting or diarrhea. Based on that, the patient came into the emergency department for further care. In the ED, the patient was found to be tachycardic and her cardiac rhythm was atrial fibrillation with rapid ventricular response as the patient is known to have chronic atrial fibrillation valvular heart disease. The patient was found to be afebrile. Hemodynamically, she is maintaining her home blood pressure. Her pulse ox was 95% on room air oxygen. Blood work showed a white cell count of 10.1, hemoglobin 11.7 and a platelet count of 206. Normal coagulation profile. Electrolytes are all within normal limits. BUN is 11 with a creatinine of 0.8. Troponins were negative x 1, proBNP level was 5190 and the viral screen was negative. A chest x-ray was also done that showed a right lateral lower lobe pulmonary consolidation and in addition to that the patient had increased fullness along the right cardiac border. Patient is currently on Cardizem drip at 5 mg an hour for rate control. She was started on diuretics. Pulmonary consultation was requested.Note that this patient is known to have history of chronic atrial fibrillation, history of valvular heart disease and the patient has undergone previous mitral valve replacement back in 2010. She also has hypertension, hyperlipidemia, hypothyroidism and previous history of GI bleed that was worked up back in 2009 and the patient was found to have colonic diverticulosis and low-grade internal hemorrhoids. Review of Systems Constitutional: Reports as per HPI Eyes: denies as per HPI, denies blurred vision, denies bulging eye, denies decreased vision, denies diplopia, denies discharge, denies dry eye, denies irritation, denies itching, denies pain, denies photophobia, denies loss of peripheral vision, denies loss of vision, denies tunnel vision/blind spots Ears: deny: decreased hearing, ear discharge, earache, tinnitus Ears, nose, mouth and throat: Reports as per HPI Breasts: absent: as per HPI, change in shape, gynecomastia, masses, nipple discharge, pain, skin changes, swelling Cardiovascular: Reports decreased exercise tolerance, Reports dyspnea on exertion, Reports irregular heart beat, Reports shortness of breath Respiratory: Reports dyspnea Gastrointestinal: Reports as per HPI Genitourinary: Reports as per HPI Menstruation: Reports as per HPI Musculoskeletal: Reports as per HPI Musculoskeletal: absent: ankle pain, ankle stiffness, ankle swelling, as per HPI, elbow pain, elbow stiffness, elbow swelling, foot pain, foot stiffness, foot swelling, hand pain, hand stiffness, hand swelling, hip pain, hip stiffness, hip swelling, knee pain, knee stiffness, knee swelling, shoulder pain, shoulder stiffness, shoulder swelling, wrist pain, wrist stiffness, wrist swelling Integumentary: Reports as per HPI Neurological: Reports as per HPI Psychiatric: Reports as per HPI Endocrine: Reports as per HPI, Reports fatigue Past Medical History Past Medical History: Atrial Fibrillation, GERD/Reflux, Hearing Disorder / Deafness, Hyperlipidemia, Hypertension, Osteoarthritis (OA), Pneumonia, Thyroid Disorder Additional Past Medical History / Comment(s): Afib with RVR, mitral valve prolapse/murmur-had mitral valve replacement, gallbladder dyskinesia, diverticulosis, UTIs, hypothyroid, arthritis bilateral hands fingers. History of Any Multi-Drug Resistant Organisms: None Reported Past Surgical History: Appendectomy, Cardiac Valve Replacement Additional Past Surgical History / Comment(s): TEEs, cardiac caths, 2010 mitral valve replacement, colonoscopies, bilateral cataract removals/lens implants. Past Anesthesia/Blood Transfusion Reactions: No Reported Reaction, Motion Sickness Additional Past Anesthesia/Blood Transfusion Reaction / Comment(s): Clausterphobia Past Psychological History: No Psychological Hx Reported Smoking Status: Never smoker Past Alcohol Use History: None Reported Past Drug Use History: None Reported - Past Family History Father Family Medical History: Cancer Additional Family Medical History / Comment(s): Father from lung/brain cancer. He was a smoker and a drinker. Mother Family Medical History: Diabetes Mellitus Sister(s) Family Medical History: Prostate Disorder Additional Family Medical History / Comment(s): Pt has one sister with diabetes and another sister with multiple sclerosis. Medications and Allergies Home Medications Medication Instructions Recorded Confirmed Type Simvastatin [Zocor] 10 mg PO HS 11/18/19 02/22/24 History L.acidoph,Paracasei, B.lactis 1 cap PO DAILY 05/27/21 02/22/24 History [Probiotic] Multivit-Min/FA/Lycopen/Lutein 1 tab PO DAILY 05/27/21 02/22/24 History [Centrum Silver Tablet] Zinc 50 mg PO HS 05/27/21 02/22/24 History lisinopriL 2.5 mg PO DAILY 05/27/21 02/22/24 History Cholecalciferol [Vitamin D3 (25 25 mcg PO BID 07/20/21 02/22/24 History Mcg = 1000 Iu)] Apixaban [Eliquis] 2.5 mg PO BID 02/22/24 02/22/24 History Ascorbic Acid [Vitamin C] 500 mg PO HS 02/22/24 02/22/24 History Aspirin EC [Ecotrin Low Dose] 81 mg PO HS 02/22/24 02/22/24 History Levothyroxine Sodium [Synthroid] 88 mcg PO DAILY 02/22/24 02/22/24 History Magnesium Oxide [Magnesium] 500 mg PO HS 02/22/24 02/22/24 History Metoprolol Succinate (ER) [Toprol 50 mg PO HS 02/22/24 02/22/24 History Xl] Metoprolol Succinate [Toprol XL] 100 mg PO DAILY 02/22/24 02/22/24 History Allergies Allergy/AdvReac Type Severity Reaction Status Date / Time Latex, Natural Rubber Allergy Rash/Hives Verified 02/22/24 11:11 Physical Exam Vitals: Vital Signs Temp Pulse Resp BP Pulse Ox 02/22/24 13:34 113 H 18 139/74 02/22/24 12:54 125 H 16 127/84 02/22/24 11:41 120 H 18 125/85 95 02/22/24 10:19 98.8 F 137 H 20 148/98 96 Intake and Output 02/21/24 02/22/24 02/22/24 22:59 06:59 14:59 Intake Total 9.25 Balance 9.25 Intake: Intake, IV Titration 9.25 Amount Diltiazem 125 mg In 9.25 Sodium Chloride 0.9% 100 ml @ 5 MG/HR 5 mls/hr IV .Q24H [facility] Rx#:[id number] Other: Weight 68.039 kg The patient appeared well nourished and normally developed. Vital signs as documented. Head exam is unremarkable. No scleral icterus or corneal arcus noted. Neck is without jugular venous distension, thyromegaly, or carotid bruits. Carotid upstrokes are brisk bilaterally. Lungs are clear to auscultation and percussion. Cardiac exam reveals the PMI to be normally sized and situated. Irregular and tachycardic consistent with atrial fibrillation rapid ventricular response first and second heart sounds normal. No murmurs, rubs or gallops. Abdominal exam reveals normal bowel sounds, no masses, no organomegaly and no aortic enlargement. Extremities are nonedematous and both femoral and pedal pulses are normal. Examination of the skin revealed no evidence of significant rashes, suspicious appearing nevi or other concerning lesions. Neurologically, the patient is awake and alert and the patient does not have any focal neurological deficit. Cranial nerves are essentially intact. Results - Laboratory Findings CBC and BMP: 02/22/24 10:58 02/22/24 10:58 PT/INR, D-dimer PT 12.1 sec (10.0-12.5) 02/22/24 10:58 INR 1.1 (<1.2) 02/22/24 10:58 Abnormal lab findings: Abnormal Labs 02/22/24 02/22/24 10:58 10:58 Neutrophils # 7.8 H Chloride 109 H Glucose 112 H - Diagnostic Findings Chest x-ray: image reviewed Assessment and Plan Plan: Acute shortness of breath. The patient has a right lateral opacity/consolidation, consider loculated pleural effusion versus pneumonia versus a mass and further characterization of this abnormality needs to be done by CAT scan of the chest. Meanwhile, the patient is in atrial fibrillation with rapid ventricular response Chronic atrial fibrillation with RVR and the patient is currently on Cardizem drip for rate control. The patient also been maintained on anticoagulation with Eliquis on outpatient basis History of mitral valve replacement back in 2010 History of GI bleed related to chronic diverticulosis back in 2019 Degenerative arthritis Hypothyroidism Hyperlipidemia Hypertension Plan Patient currently on room air oxygen Continue Cardizem drip IV Lasix Continue anticoagulation with Eliquis Restart beta-blockers CAT scan of the chest for further characterization of the right lung capacity Will follow
[2024-02-22] MEDS: APIXABAN 2.5 MG TABLET PO SCH (20:58)
[2024-02-22] MEDS: FUROSEMIDE 10 MG/ML 2 ML VIAL IV SCH (20:58)
[2024-02-23 08:49] LABS: Chol/HDL Ratio 2.58 Ratio; LDL Cholesterol,Calculated 47.4 mg/dL (0.0-131.0)
[2024-02-23] MEDS: ASPIRIN 325 MG TAB PO SCH (09:00)
[2024-02-23] MEDS: METOPROLOL SUCCINATE (ER) 100 MG TAB.ER.24H PO SCH (09:00)
[2024-02-23] MEDS: FUROSEMIDE 10 MG/ML 4 ML VIAL IV SCH (09:00)
--- NOTE | 2024-02-23 11:03 | P.CRDCN ---
History of Present Illness Consult date: 02/23/24 Reason for Consult (text): A-fib with RVR History of present illness: This is an 88-year-old female patient of Dr. Crowder with past medical history of mitral valve prolapse status post mitral valve replacement with bioprosthetic valve, atrial tachycardia, paroxysmal atrial fibrillation, hypertension, hyperlipidemia. We have been asked to evaluate the patient for A-fib with RVR. Patient presented to the hospital due to difficulty with breathing and pain when she takes a deep breath. Apparently symptoms have been going on for [place] 1 week and the patient had not told her family members. Son states that her heart rate has been jumping up and down since she has been in the hospital. Patient states that she is now feeling better and she still has a little bit of pain with deep breathing. Patient has been noted to have more confusion per her son. Patient has been started on Cardizem drip and resumed on Eliquis. Cardizem drip is currently at 5 mg/h. [place] [id number]. -EKG: #1 atrial fibrillation 144 bpm, #2 atrial fibrillation 99 bpm -Chest x-ray: New right lateral lower lung consolidation with increased right heart border consolidation. Correlated for loculated pleural effusion versus mass. -CTA chest: No evidence of pulmonary embolism. Cardiomegaly, bilateral pleural effusions and interlobular septal thickening suggestive of pulmonary edema. -Laboratory studies: CBC unremarkable. Sodium 142, potassium 3.7, BUN 11 creatinine 0.82. Troponin negative x 3. proBNP 5190. Triglycerides 84, cholesterol 105, LDL 47, HDL 40. Influenza A, influenza B, RSV, COVID-19 not detected. -Home cardiac medications: Eliquis 2.5 mg twice daily, aspirin 81 mg daily, lisinopril 2.5 mg daily, Toprol XL 100 mg daily in the morning and 50 mg in the evening, Zocor 10 mg at bedtime. -Echocardiogram performed in the office on 01/28/2022: EF 55%, mild LVH, moderate aortic regurgitation, biological mitral valve prosthesis, moderate tricuspid regurgitation, PASP 40 mmHg. 2 AI jets noted on M mode imaging consider SARAH in the future. Review Of Systems: At the time of my exam: CONSTITUTIONAL: Denies fever or chills. HEENT: Denies blurred vision, vision changes, or eye pain. Denies hemoptysis CARDIOVASCULAR: Denies chest pain. Denies orthopnea. Denies PND. Denies palpitations RESPIRATORY: Reports shortness of breath. GASTROINTESTINAL: Denies abdominal pain. Denies nausea or vomiting. HEMATOLOGIC: Denies bleeding disorders. GENITOURINARY: Denies any blood in urine. SKIN: Denies puritis. Denies rash. Physical examination: Gen: This is an 88-year-old female in no acute distress VS: reviewed HEENT: Head is atraumatic, normocephalic. Pupils equal, round. Sclerae is anicteric. NECK: Supple. No JVD. LUNGS: Clear to auscultation. No wheezes or rhonchi. No intercostal retractions. HEART: Irregular rate and rhythm. Systolic ejection murmur right border, systolic murmur at the apex. ABDOMEN: Soft No tenderness. EXTREMITIES: No pedal edema. No calf tenderness. NEUROLOGICAL: Patient is awake, alert. Assessment: Persistent atrial fibrillation currently poorly controlled Chest pain with deep breath Shortness of breath possibly due to pleural effusion versus pneumonia versus A- fib with RVR Confusion per family Mitral valve prolapse status post mitral valve replacement with bioprosthetic valve Hypertension Hyperlipidemia Hypothyroidism Plan: Resume patient's home cardiac medications Continue Cardizem drip and discontinue later today once heart rate is well- controlled in the 80s and 90s Start patient on IV Lasix 40 mg daily Monitor ERLIN, daily weights, electrolytes and renal function Obtain 2-D echocardiogram and Doppler study to assess cardiac structure and function Further recommendations to follow based upon clinical course Thank you kindly for this consultation. Nurse practitioner note has been reviewed, I agree with documented findings and plan of care. Patient was seen and examined. Past Medical History Past Medical History: Atrial Fibrillation, GERD/Reflux, Hearing Disorder / Deafness, Hyperlipidemia, Hypertension, Osteoarthritis (OA), Pneumonia, Thyroid Disorder Additional Past Medical History / Comment(s): Afib with RVR, mitral valve prolapse/murmur-had mitral valve replacement 2010, gallbladder dyskinesia, diverticulosis, UTIs, hypothyroid, arthritis bilateral hands fingers. History of Any Multi-Drug Resistant Organisms: None Reported Past Surgical History: Appendectomy, Cardiac Valve Replacement Additional Past Surgical History / Comment(s): TEEs, cardiac caths, 2010 mitral valve replacement, colonoscopies, bilateral cataract removals/lens implants. Past Anesthesia/Blood Transfusion Reactions: No Reported Reaction, Motion Sickness Additional Past Anesthesia/Blood Transfusion Reaction / Comment(s): Clausterphobia Past Psychological History: No Psychological Hx Reported Additional Psychological History / Comment(s): Pt resides alone. She has a cane and walker, shower chair and grab bar. She has family who are very helpful. she drives. Smoking Status: Never smoker Past Alcohol Use History: None Reported Past Drug Use History: None Reported - Past Family History Father Family Medical History: Cancer Additional Family Medical History / Comment(s): Father from lung/brain cancer. He was a smoker and a drinker. Mother Family Medical History: Diabetes Mellitus Sister(s) Family Medical History: Prostate Disorder Additional Family Medical History / Comment(s): Pt has one sister with diabetes and another sister with multiple sclerosis. Medications and Allergies Home Medications Medication Instructions Recorded Confirmed Type Simvastatin [Zocor] 10 mg PO HS 11/18/19 02/22/24 History L.acidoph,Paracasei, B.lactis 1 cap PO DAILY 05/27/21 02/22/24 History [Probiotic] Multivit-Min/FA/Lycopen/Lutein 1 tab PO DAILY 05/27/21 02/22/24 History [Centrum Silver Tablet] Zinc 50 mg PO HS 05/27/21 02/22/24 History lisinopriL 2.5 mg PO DAILY 05/27/21 02/22/24 History Cholecalciferol [Vitamin D3 (25 25 mcg PO BID 07/20/21 02/22/24 History Mcg = 1000 Iu)] Apixaban [Eliquis] 2.5 mg PO BID 02/22/24 02/22/24 History Ascorbic Acid [Vitamin C] 500 mg PO HS 02/22/24 02/22/24 History Aspirin EC [Ecotrin Low Dose] 81 mg PO HS 02/22/24 02/22/24 History Levothyroxine Sodium [Synthroid] 88 mcg PO DAILY 02/22/24 02/22/24 History Magnesium Oxide [Magnesium] 500 mg PO HS 02/22/24 02/22/24 History Metoprolol Succinate (ER) [Toprol 50 mg PO HS 02/22/24 02/22/24 History Xl] Metoprolol Succinate [Toprol XL] 100 mg PO DAILY 02/22/24 02/22/24 History Allergies Allergy/AdvReac Type Severity Reaction Status Date / Time Latex, Natural Rubber Allergy Rash/Hives Verified 02/22/24 11:11 Physical Exam Vitals: Vital Signs Temp Pulse Pulse Resp BP BP Pulse Ox 02/23/24 04:05 98.2 F 105 H 16 134/78 92 L 02/23/24 01:04 97.9 F 103 H 19 132/69 95 02/23/24 00:39 101 H 22 123/82 96 02/22/24 22:00 100 17 113/86 98 02/22/24 16:59 110 H 16 117/70 96 02/22/24 13:34 113 H 18 139/74 02/22/24 12:54 125 H 16 127/84 02/22/24 11:41 120 H 18 125/85 95 02/22/24 10:19 98.8 F 137 H 20 148/98 96 Intake and Output 02/22/24 02/23/24 02/23/24 22:59 06:59 14:59 Intake Total 672.833 Balance 672.833 Intake: IV 20 Invasive Line 1 10 Invasive Line 2 10 Intake, IV Titration 112.833 Amount Diltiazem 125 mg In 112.833 Sodium Chloride 0.9% 100 ml @ 5 MG/HR 5 mls/hr IV .Q24H [facility] Rx#:[id number] Oral 540 Other: Voiding Method Toilet # Voids 1 Weight 69.8 kg Results 02/22/24 10:58 02/22/24 10:58 Cardiac Enzymes 02/22/24 02/22/24 02/22/24 Range/Units 10:58 10:58 15:49 AST 35 (14-36) U/L Troponin I <0.012 <0.012 (0.000-0.034) ng/mL 02/22/24 Range/Units 19:03 AST (14-36) U/L Troponin I <0.012 (0.000-0.034) ng/mL Coagulation 02/22/24 Range/Units 10:58 PT 12.1 (10.0-12.5) sec APTT 28.1 (22.0-30.0) sec CBC 02/22/24 Range/Units 10:58 WBC 10.1 (3.8-10.6) k/uL RBC 4.06 (3.80-5.40) m/uL Hgb 11.7 (11.4-16.0) gm/dL Hct 36.7 (34.0-46.0) % Plt Count 206 (150-450) k/uL Comprehensive Metabolic Panel 02/22/24 Range/Units 10:58 Sodium 142 (137-145) mmol/L Potassium 3.7 (3.5-5.1) mmol/L Chloride 109 H (98-107) mmol/L Carbon Dioxide 22 (22-30) mmol/L BUN 11 (7-17) mg/dL Creatinine 0.82 (0.52-1.04) mg/dL Glucose 112 H (74-99) mg/dL Calcium 9.2 (8.4-10.2) mg/dL AST 35 (14-36) U/L ALT 18 (4-34) U/L Alkaline Phosphatase 72 (38-126) U/L Total Protein 7.4 (6.3-8.2) g/dL Albumin 4.1 (3.5-5.0) g/dL Current Medications Generic Name Dose Route Start Last Admin Trade Name Freq PRN Reason Stop Dose Admin Apixaban 2.5 mg 02/22/24 21:00 02/22/24 20:58 Apixaban 2.5 Mg Tablet PO 2.5 mg BID BLANQUITA Administration Protocol Aspirin 325 mg 02/23/24 09:00 Aspirin 325 Mg Tab PO DAILY [facility] Furosemide 20 mg 02/22/24 21:00 02/22/24 20:58 Furosemide 10 Mg/Ml 2 Ml Vial IV 20 mg Q12HR BLANQUITA Administration Diltiazem HCl 125 mg/ Sodium 125 mls @ 5 mls/hr 02/22/24 11:30 02/23/24 00:52 Chloride IV 10 mg/hr .Q24H BLANQUITA 10 mls/hr Administration 5 MG/HR Metoprolol Succinate 100 mg 02/23/24 09:00 Metoprolol Succinate (Er) 100 Mg Tab.Er.24h PO DAILY [facility] Metoprolol Succinate 50 mg 02/23/24 21:00 Metoprolol Succinate (Er) 50 Mg Tab.Er.24h PO HS [facility] Nitroglycerin 0.4 mg 02/22/24 13:44 Nitroglycerin Sl Tabs 0.4 Mg Tab SUBLINGUAL Q5M PRN Chest Pain Intake and Output 02/22/24 02/23/24 02/23/24 22:59 06:59 14:59 Intake Total 672.833 Balance 672.833 Intake: IV 20 Invasive Line 1 10 Invasive Line 2 10 Intake, IV Titration 112.833 Amount Diltiazem 125 mg In 112.833 Sodium Chloride 0.9% 100 ml @ 5 MG/HR 5 mls/hr IV .Q24H [facility] Rx#:[id number] Oral 540 Other: Voiding Method Toilet # Voids 1 Weight 69.8 kg 02/22/24 10:58 02/22/24 10:58
[2024-02-23] MEDS: LEVOTHYROXINE 88 MCG TAB PO SCH (12:53)
--- NOTE | 2024-02-23 13:30 | CA ---
Transthoracic Echo Report Name: Nayeli Keith Age: 88 Gender: F : 1935 Exam Date: 02/23/2024 11:44 Exam Location: [facility] Ht (in): 68 Wt (lb): 153 Ordering Physician: Erica Bradford Attending/Referring Phys: [id number], [place] [employer] Helper Priscilla Rios RDCS Procedure CPT: Indications: LVF Cardiac Hx: MV Replacement, A-FIB Technical Quality: Fair Contrast 1: Total Dose (mL): Contrast 2: Total Dose (mL): MEASUREMENTS (Male / Female) Normal Values 2D ECHO LV Diastolic Diameter PLAX 3.5 cm 4.2 - 5.9 / 3.9 - 5.3 cm LV Systolic Diameter PLAX 2.2 cm IVS Diastolic Thickness 1.4 cm 0.6 - 1.0 / 0.6 - 0.9 cm LVPW Diastolic Thickness 1.4 cm 0.6 - 1.0 / 0.6 - 0.9 cm LV Relative Wall Thickness 0.8 RV Internal Dim ED PLAX 2.3 cm LA Systolic Diameter LX 4.6 cm 3.0 - 4.0 / 2.7 - 3.8 cm LV Diastolic Volume MOD BP 47.2 cm??? 67 - 155 / 56 - 104 cm??? LV Systolic Volume MOD BP 24.6 cm??? 22 - 58 / 19 - 49 cm??? LV Ejection Fraction MOD BP 47.9 % >= 55 % LV Cardiac Index MOD BP 1224.0 cm???/min???m??? LV Diastolic Volume MOD 4C 46.8 cm??? LV Systolic Volume MOD 4C 26.6 cm??? LV Ejection Fraction MOD 4C 43.1 % LV Cardiac Index MOD 4C 1091.5 cm???/min???m??? LV Diastolic Length 4C 6.5 cm LV Systolic Length 4C 6.1 cm LV Diastolic Volume MOD 2C 45.4 cm??? LV Systolic Volume MOD 2C 23.5 cm??? LV Ejection Fraction MOD 2C 48.3 % LV Cardiac Index MOD 2C 1186.4 cm???/min???m??? LV Diastolic Length 2C 6.2 cm LV Systolic Length 2C 6.3 cm LA Volume 112.3 cm??? 18 - 58 / 22 - 52 cm??? LA Volume Index 61.4 cm???/m??? 16 - 28 cm???/m??? M-MODE Aortic Root Diameter MM 3.5 cm LA Systolic Diameter MM 5.1 cm LA Ao Ratio MM 1.4 AV Cusp Separation MM 2.2 cm DOPPLER AV Peak Velocity 113.3 cm/s AV Peak Gradient 5.1 mmHg AI Peak Velocity 461.2 cm/s AI Peak Gradient 85.1 mmHg AI Pressure Half Time 368.5 ms LVOT Peak Velocity 73.5 cm/s LVOT Peak Gradient 2.2 mmHg LVOT Velocity Time Integral 13.6 cm MV Peak Velocity 223.9 cm/s MV Peak Gradient 20.0 mmHg MV Mean Velocity 149.6 cm/s MV Mean Gradient 10.2 mmHg MV Velocity Time Integral 50.4 cm TR Peak Velocity 275.1 cm/s TR Peak Gradient 30.3 mmHg FINDINGS Left Ventricle Left ventricular ejection fraction is estimated at 40-45%. Moderately increased septal wall thickness. Moderately increased posterior wall thickness. Mildly decreased left ventricular ejection fraction. Mildly reduced global left ventricular systolic function. Right Ventricle Mild right ventricular dilatation. Mild pulmonary hypertension. Right Atrium Severe right atrial dilatation. Left Atrium Moderately increased left atrial diameter. Severely increased left atrial volume. Mildly increased left atrial area. Mitral Valve Gradient recorded across the prosthetic mitral valve above the expected range. 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 MV Mean PG 10 mmHg. Mild to moderate prosthetic mitral valve regurgitation. Aortic Valve Trileaflet aortic valve. [id number] aortic regurgitation. No aortic stenosis. Tricuspid Valve Structurally normal tricuspid valve. Moderate tricuspid regurgitation. No tricuspid stenosis. Pulmonic Valve Structurally normal pulmonic valve. Trace pulmonic regurgitation. No pulmonic stenosis. Pericardium No pericardial or pleural effusion. Aorta Normal size aortic root and proximal ascending aorta. 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 Andrei Brown DO (Electronically Signed) Final Date: 23 February 2024 13:29
--- NOTE | 2024-02-23 16:25 | P.HPIM ---
History of Present Illness H&P Date: 02/23/24 History of present illness; Patient is 88-year-old female with A-fib on home Eliquis, hypertension, h ypothyroidism who presents with shortness of breath and palpitations. She states her symptoms have been ongoing for the last 2 weeks. She states she has some chest pain with deep breathing, mostly substernal and dull. She admits to poor control of her A-fib. Currently she feels somewhat improved but continues to have stated chest pain with deep inspiration. Patient reports absence of fever, chills, diaphoresis. WBC 10.1, hemoglobin 11.7, sodium 142, potassium 3.7, chloride 109, bicarb 22, troponin negative x 3, lipid panel WNL, UA unremarkable, respiratory viral panel negative. EKG done in the ER independently interpreted showed A-fib heart rate of 144, no ST segment elevation or depression seen, no T-wave inversions seen. Chest x-ray done independently interpreted in the ER showed right lateral lower lung consolidation with increased right heart border consolidation. CTA chest independently interpreted showed no pulmonary embolism, bilateral basilar pulmonary edema present Spoke with the ER physician, patient admission was accepted by internal medicine service. REVIEW OF SYSTEMS: Pertinent positives and negatives noted in HPI. PHYSICAL EXAMINATION: Vitals reviewed GENERAL: No acute distress. Well developed, well nourished. HEENT: Pupils are round and equally reacting to light. EOMI. No scleral icterus. Normocephalic, atraumatic. No pharyngeal erythema. No thyromegaly. CARDIOVASCULAR: Irregular, rhythm S1 and S2 present. Systolic ejection murmur Right border. PULMONARY: Chest is clear to auscultation, no wheezing, rhonchi, or crackles. ABDOMEN: Soft, nontender, nondistended, normoactive bowel sounds. No palpable organomegaly. MUSCULOSKELETAL: No apparent joint swelling and deformities. EXTREMITIES: No apparent cyanosis, clubbing, or pedal edema. NEUROLOGICAL: The patient is alert and oriented x3, Gross neurological examination did not reveal any focal deficits. 5/5 Strength bilateral UE and LE SKIN: No apparent rashes. Assessment and plan Patient is 88-year-old female with A-fib on home Eliquis, hypertension, hypothyroidism who is treated for A-fib and shortness of breath. # A-fib with RVR, poorly controlled #Chest pain with deep inspiration EKG as above Troponin 3 times negative Chest x-ray with pleural effusion versus mass Continue Cardizem drip, plan to discontinue once rate controlled in 80s and 90s Begin IV Lasix daily Continuous cardiac monitoring Resume home aspirin, Eliquis, Lipitor, metoprolol, Nitrostat Echocardiogram revealed EF of 40 to 45%, moderate to severe aortic regurgit ation TSH pending Cardiology following Pulmonology following # Bilateral pleural effusions CTA chest with pleural effusion IV Lasix as above Pulmonology following Chronic Medical Conditions #Hypothyroidism - Resume home Synthroid F: P.o. E: Replete as needed N: Heart healthy diet DVT ppx: Eliquis 2.5 mg twice daily Code status: Full code Anticipated discharge place: Home Anticipated discharge time: 1 to 2 days Dictation was produced using [employer] dictation software. Please excuse any grammatical, word or spelling errors. Past Medical History Past Medical History: Atrial Fibrillation, GERD/Reflux, Hearing Disorder / Deafness, Hyperlipidemia, Hypertension, Osteoarthritis (OA), Pneumonia, Thyroid Disorder Additional Past Medical History / Comment(s): Afib with RVR, mitral valve prol apse/murmur-had mitral valve replacement 2010, gallbladder dyskinesia, diverticulosis, UTIs, hypothyroid, arthritis bilateral hands fingers. History of Any Multi-Drug Resistant Organisms: None Reported Past Surgical History: Appendectomy, Cardiac Valve Replacement Additional Past Surgical History / Comment(s): TEEs, cardiac caths, 2010 mitral valve replacement, colonoscopies, bilateral cataract removals/lens implants. Past Anesthesia/Blood Transfusion Reactions: No Reported Reaction, Motion Sick ness Additional Past Anesthesia/Blood Transfusion Reaction / Comment(s): Cl austerphobia Past Psychological History: No Psychological Hx Reported Additional Psychological History / Comment(s): Pt resides alone. She has a cane and walker, shower chair and grab bar. She has family who are very helpful. she drives. Smoking Status: Never smoker Past Alcohol Use History: None Reported Past Drug Use History: None Reported - Past Family History Father Family Medical History: Cancer Additional Family Medical History / Comment(s): Father from lung/brain cancer. He was a smoker and a drinker. Mother Family Medical History: Diabetes Mellitus Sister(s) Family Medical History: Prostate Disorder Additional Family Medical History / Comment(s): Pt has one sister with diabetes and another sister with multiple sclerosis. Medications and Allergies Home Medications Medication Instructions Recorded Confirmed Type Simvastatin [Zocor] 10 mg PO HS 11/18/19 02/22/24 History L.acidoph,Paracasei, B.lactis 1 cap PO DAILY 05/27/21 02/22/24 History [Probiotic] Multivit-Min/FA/Lycopen/Lutein 1 tab PO DAILY 05/27/21 02/22/24 History [Centrum Silver Tablet] Zinc 50 mg PO HS 05/27/21 02/22/24 History lisinopriL 2.5 mg PO DAILY 05/27/21 02/22/24 History Cholecalciferol [Vitamin D3 (25 25 mcg PO BID 07/20/21 02/22/24 History Mcg = 1000 Iu)] Apixaban [Eliquis] 2.5 mg PO BID 02/22/24 02/22/24 History Ascorbic Acid [Vitamin C] 500 mg PO HS 02/22/24 02/22/24 History Aspirin EC [Ecotrin Low Dose] 81 mg PO HS 02/22/24 02/22/24 History Levothyroxine Sodium [Synthroid] 88 mcg PO DAILY 02/22/24 02/22/24 History Magnesium Oxide [Magnesium] 500 mg PO HS 02/22/24 02/22/24 History Metoprolol Succinate (ER) [Toprol 50 mg PO HS 02/22/24 02/22/24 History Xl] Metoprolol Succinate [Toprol XL] 100 mg PO DAILY 02/22/24 02/22/24 History Allergies Allergy/AdvReac Type Severity Reaction Status Date / Time Latex, Natural Rubber Allergy Rash/Hives Verified 02/22/24 11:11 Physical Exam Vitals: Vital Signs Temp Pulse Pulse Resp BP BP Pulse Ox 02/23/24 14:00 87 16 02/23/24 12:00 87 99/63 97 02/23/24 08:00 97.7 F 115 H 16 103/66 97 02/23/24 04:05 98.2 F 105 H 16 134/78 92 L 02/23/24 01:04 97.9 F 103 H 19 132/69 95 02/23/24 00:39 101 H 22 123/82 96 02/22/24 22:00 100 17 113/86 98 02/22/24 16:59 110 H 16 117/70 96 Intake and Output 02/23/24 02/23/24 02/23/24 06:59 14:59 22:59 Intake Total 672.833 300 Balance 672.833 300 Intake: IV 20 Invasive Line 1 10 Invasive Line 2 10 Intake, IV Titration 112.833 Amount Diltiazem 125 mg In 112.833 Sodium Chloride 0.9% 100 ml @ 5 MG/HR 5 mls/hr IV .Q24H [facility] Rx#:[id number] Oral 540 300 Other: Voiding Method Toilet Toilet # Voids 1 Weight 69.8 kg Results CBC & Chem 7: 02/22/24 10:58 02/22/24 10:58 Thrombosis Risk Factor Assmnt - Choose All That Apply Any of the Below Risk Factors Present?: Yes Other Risk Factors: Yes Each Risk Factor Represents 3 Points: Age 75 years or older Other congenital or acquired thrombophilia - If yes, enter type in comment: No Thrombosis Risk Factor Assessment Total Risk Factor Score: 3 Thrombosis Risk Factor Assessment Level: Moderate Risk
--- NOTE | 2024-02-23 16:47 | P.PN ---
Subjective Progress Note Date: 02/23/24 Principal diagnosis: Acute systolic congestive heart failure with bilateral pleural effusions This is a 88-year-old female patient, presenting to the hospital because of shortness of breath. The patient has been having increased dyspnea for around a week and her condition has gotten progressively worse. She was also noted to have some tachycardia and confusion and altered mentation. Denied having any chest pain. Denied having any fever or chills. No cough or sputum production. No nausea vomiting or diarrhea. Based on that, the patient came into the emergency department for further care. In the ED, the patient was found to be tachycardic and her cardiac rhythm was atrial fibrillation with rapid ventricular response as the patient is known to have chronic atrial fibrillation valvular heart disease. The patient was found to be afebrile. Hemodynamically, she is maintaining her home blood pressure. Her pulse ox was 95% on room air oxygen. Blood work showed a white cell count of 10.1, hemoglobin 11.7 and a platelet count of 206. Normal coagulation profile. Electrolytes are all within normal limits. BUN is 11 with a creatinine of 0.8. Troponins were negative x 1, proBNP level was 5190 and the viral screen was negative. A chest x-ray was also done that showed a right lateral lower lobe pulmonary consolidation and in addition to that the patient had increased fullness along the right cardiac border. Patient is currently on Cardizem drip at 5 mg an hour for rate control. She was started on diuretics. Pulmonary consultation was requested.Note that this patient is known to have history of chronic atrial fibrillation, history of valvular heart disease and the patient has undergone previous mitral valve replacement back in 2010. She also has hypertension, hyperlipidemia, hypothyroidism and previous history of GI bleed that was worked up back in 2009 and the patient was found to have colonic diverticulosis and low-grade internal hemorrhoids. Patient was seen and examined today on 02/23/2024, patient seems to be doing better, breathing easier, remains on diuretics, Lasix 40 mg IV push daily, patient is on Cardizem for atrial fibrillation, CT of the chest showed no evidence of mass, no evidence of pneumonia, patient seems to have pleural effusions most likely secondary to congestive heart failure. CT of the chest is more suggestive of pulmonary edema and again there is no evidence of pulmonary embolism BNP level is elevated, consistent with congestive heart failure Objective - Vital Signs Vital signs: Vital Signs Temp 97.7 F 02/23/24 08:00 Pulse 87 02/23/24 14:00 Resp 16 02/23/24 14:00 BP 99/63 02/23/24 12:00 Pulse Ox 97 02/23/24 12:00 FiO2 Intake & Output 02/22/24 02/23/24 02/23/24 18:59 06:59 18:59 Intake Total 9.25 672.833 300 Balance 9. 672.833 300 Weight 68.039 kg 69.8 kg Intake: IV 20 Invasive Line 1 10 Invasive Line 2 10 Intake, IV Titration 9. 112.833 Amount Diltiazem 125 mg In 9. 112.833 Sodium Chloride 0.9% 100 ml @ 5 MG/HR 5 mls/hr IV .Q24H [facility] Rx#:[id number] Oral 540 300 Other: Voiding Method Toilet Toilet # Voids 1 - Exam HEENT: Head is atraumatic, normocephalic. Pupils equal, round. Sclerae is anicteric. NECK: Supple. No JVD. LUNGS: Diminished breath sounds at the bases no crackles rhonchi or wheezes HEART: Irregular rate and rhythm. Systolic ejection murmur right border, systolic murmur at the apex. ABDOMEN: Soft No tenderness. No megaly no rebound no guarding. EXTREMITIES: No pedal edema. No calf tenderness. NEUROLOGICAL: Alert oriented x 3 no gross focal deficit Psychiatric: Normal mood, affect, normal mental status examination - Labs CBC & Chem 7: 02/22/24 10:58 02/22/24 10:58 Assessment and Plan Assessment: Pression: Acute shortness of breath. Secondary to bilateral pleural effusions and congestive heart failure doubt underlying pneumonia improving with diuretics, ejection fraction 40 to 45%/systolic in nature Chronic atrial fibrillation with RVR and the patient is currently on Cardizem drip for rate control. The patient also been maintained on anticoagulation with Eliquis on outpatient basis History of mitral valve replacement back in 2010 History of GI bleed related to chronic diverticulosis back in 2019 Degenerative arthritis Hypothyroidism Hyperlipidemia Hypertension Recommendation: Continue diuretics patient is on Lasix 40 mg IV push daily Continue Cardizem for atrial fibrillation with RVR Continue to monitor x-rays of the chest, Continue to monitor O2 saturation and titrate oxygen accordingly Will continue to follow Time with Patient: Less than 30
[2024-02-23] MEDS: METOPROLOL SUCCINATE (ER) 50 MG TAB.ER.24H PO SCH (20:19)
[2024-02-23] MEDS: ATORVASTATIN 10 MG TAB PO SCH (20:19)
[2024-02-24 07:24] LABS: Basophils # (A) 0.1 k/uL (0-0.2); Basophils % (A) 1 %; Eosinophils # (A) 0.3 k/uL (0-0.7); Eosinophils % (A) 3 %; HCT 36.4 % (34.0-46.0); HGB 11.5 gm/dL (11.4-16.0); Hypochromasia Slight; Lymphocytes # (A) 1.2 k/uL (1.0-4.8); Lymphocytes % (A) 14 %; MCH 29.4 pg (25.0-35.0); MCHC 31.6 g/dL (31.0-37.0); Mean Platelet Volume 8.8; Monocytes # (A) 0.6 k/uL (0-1.0); Monocytes % (A) 7 %; Neutrophils # (A) 6.4 k/uL (1.3-7.7); Neutrophils % (A) 73 %; Platelet Count 189 k/uL (150-450); RBC 3.91 m/uL (3.80-5.40); RDW 14.6 % (11.5-15.5); WBC 8.7 k/uL (3.8-10.6)
[2024-02-24 07:36] LABS: African American GFR (CKD) 84 (>60 ml/min/1.73 sqM); Anion Gap 4 mmol/L; Blood Urea Nitrogen 9 mg/dL (7-17); Calcium 8.7 mg/dL (8.4-10.2); Carbon Dioxide 27 mmol/L (22-30); Chloride 109 mmol/L (98-107); Glucose 107 mg/dL (74-99); Non-African American GFR(CKD) 73 (>60 ml/min/1.73 sqM); Potassium 3.3 mmol/L (3.5-5.1); Sodium 140 mmol/L (137-145)
[2024-02-24] MEDS: DILTIAZEM ORAL 30 MG TAB PO SCH (08:48)
--- NOTE | 2024-02-24 10:20 | P.PN ---
Subjective Progress Note Date: 02/24/24 Reason for Consult (text): A-fib with RVR History of present illness: This is an 88-year-old female patient of Dr. Crowder with past medical history of mitral valve prolapse status post mitral valve replacement with bioprosthetic valve, atrial tachycardia, paroxysmal atrial fibrillation, hypertension, hyperlipidemia. We have been asked to evaluate the patient for A-fib with RVR. Patient presented to the hospital due to difficulty with breathing and pain when she takes a deep breath. Apparently symptoms have been going on for greater than 1 week and the patient had not told her family members. Son states that her heart rate has been jumping up and down since she has been in the hospital. Patient states that she is now feeling better and she still has a little bit of pain with deep breathing. Patient has been noted to have more confusion per her son. Patient has been started on Cardizem drip and resumed on Eliquis. Cardizem drip is currently at 5 mg/h. [place] [address]. -EKG: #1 atrial fibrillation 144 bpm, #2 atrial fibrillation 99 bpm -Chest x-ray: New right lateral lower lung consolidation with increased right heart border consolidation. Correlated for loculated pleural effusion versus mass. -CTA chest: No evidence of pulmonary embolism. Cardiomegaly, bilateral pleural effusions and interlobular septal thickening suggestive of pulmonary edema. -Laboratory studies: CBC unremarkable. Sodium 142, potassium 3.7, BUN 11 creatinine 0.82. Troponin negative x 3. proBNP 5190. Triglycerides 84, cholesterol 105, LDL 47, HDL 40. Influenza A, influenza B, RSV, COVID-19 not detected. -Home cardiac medications: Eliquis 2.5 mg twice daily, aspirin 81 mg daily, lisinopril 2.5 mg daily, Toprol XL 100 mg daily in the morning and 50 mg in the evening, Zocor 10 mg at bedtime. -Echocardiogram performed in the office on 01/28/2022: EF 55%, mild LVH, moderate aortic regurgitation, biological mitral valve prosthesis, moderate tricuspid regurgitation, PASP 40 mmHg. 2 AI jets noted on M mode imaging consider SARAH in the future. 02/24/2024 Patient seen and examined. Patient states that she is doing better today. She denies any chest pain no palpitations. She remains in atrial fibrillation in the 90s. Blood pressure 114/52. Family is concerned the patient has not been out of bed and that her heart rate will go up. She does remain on IV Cardizem which will be discontinued. Repeat blood work reveals hemoglobin 11.5. Potassium 3.3, creatinine 0.74. Potassium has been replaced. Echocardiogram results have been reviewed with the patient and son at the bedside. Echocardiogram reveals EF of 40 to 45%, bioprosthetic mitral valve with moderate to severe mitral stenosis, mean gradient 10 mmHg. Mild to moderate mitral regurgitation, moderate to severe aortic regurgitation, moderate tricuspid regurgitation. Physical examination: Gen: This is an 88-year-old female in no acute distress VS: reviewed HEENT: Head is atraumatic, normocephalic. Pupils equal, round. Sclerae is anicteric. NECK: Supple. No JVD. LUNGS: Clear to auscultation. No wheezes or rhonchi. No intercostal retractions. HEART: Irregular rate and rhythm. Systolic ejection murmur right border, systo lic murmur at the apex. ABDOMEN: Soft No tenderness. EXTREMITIES: No pedal edema. No calf tenderness. NEUROLOGICAL: Patient is awake, alert. Assessment: Persistent atrial fibrillation currently rate controlled at rest Chest pain with deep breath Shortness of breath possibly due to pleural effusion versus pneumonia versus A- fib with RVR Confusion per family Mitral valve prolapse status post mitral valve replacement with bioprosthetic valve Hypertension Hyperlipidemia Hypothyroidism Plan: Continue patient's home cardiac medications: Eliquis 2.5 mg twice daily, aspirin 81 mg daily, Lipitor, Toprol XL 100 mg in the morning and 50 mg in the evening Discontinue Cardizem drip and start patient on oral Cardizem 30 mg 3 times daily Transition IV Lasix to oral 20 mg daily Monitor ERLIN, daily weights, electrolytes and renal function Increase activity and monitor heart rate Plan for discharge home tomorrow Further recommendations to follow based upon clinical course Nurse practitioner note has been reviewed, I agree with documented findings and plan of care. Patient was seen and examined. Objective - Vital Signs Vital signs: Vital Signs Temp 97.8 F 02/24/24 03:15 Pulse 99 02/24/24 03:15 Resp 16 02/24/24 03:15 BP 114/52 02/24/24 03:15 Pulse Ox 95 02/24/24 03:15 FiO2 Intake & Output 02/23/24 02/24/24 02/24/24 18:59 06:59 18:59 Intake Total 575 161 Balance 575 161 Weight 70 kg Intake: IV 40 Invasive Line 1 20 Invasive Line 2 20 Intake, IV Titration 125 121 Amount Diltiazem 125 mg In 125 121 Sodium Chloride 0.9% 100 ml @ 5 MG/HR 5 mls/hr IV .Q24H [facility] Rx#:[id number] Oral 450 Other: Voiding Method Toilet Toilet # Voids 3 - Labs CBC & Chem 7: 02/24/24 06:06 02/24/24 06:06 Labs: Abnormal Lab Results - Last 24 Hours (Table) 02/23/24 02/24/24 Range/Units 06:13 06:06 Potassium 3.3 L (3.5-5.1) mmol/L Chloride 109 H (98-107) mmol/L Glucose 107 H (74-99) mg/dL TSH 8.290 H (0.350-5.500) UIU/ML
[2024-02-24] MEDS: POTASSIUM CHLORIDE ER 20 MEQ TAB.ER PO STA (10:33)
[2024-02-24] MEDS: POTASSIUM CHLORIDE ER 20 MEQ TAB.ER PO ONE (11:51)
--- NOTE | 2024-02-24 14:36 | P.PN ---
Subjective Progress Note Date: 02/24/24 History of present illness; Patient is 88-year-old female with A-fib on home Eliquis, hypertension, hypothy roidism who presents with shortness of breath and palpitations. She states her symptoms have been ongoing for the last 2 weeks. She states she has some chest pain with deep breathing, mostly substernal and dull. She admits to poor control of her A-fib. Currently she feels somewhat improved but continues to have stated chest pain with deep inspiration. Patient reports absence of fever, chills, diaphoresis. WBC 10.1, hemoglobin 11.7, sodium 142, potassium 3.7, chloride 109, bicarb 22, troponin negative x 3, lipid panel WNL, UA unremarkable, respiratory viral panel negative. EKG done in the ER independently interpreted showed A-fib heart rate of 144, no ST segment elevation or depression seen, no T-wave inversions seen. Chest x-ray done independently interpreted in the ER showed right lateral lower lung consolidation with increased right heart border consolidation. CTA chest independently interpreted showed no pulmonary embolism, bilateral basilar pulmonary edema present Progress note February 24, 2024 Patient seen and examined at bedside. No overnight events. Patient's dyspnea seems to have improved with no complaints of chest pain on deep inspiration. She did ambulate this morning with heart rate increasing to 118 during that time. Cardizem drip was discontinued she is now on oral Cardizem 30 mg p.o. 3 times daily. She is now on oral Lasix 20 mg daily. Labs WBC 8.7, hemoglobin 11.5, platelets 14.6, sodium 140, potassium 3.3, bicarb 27, BUN 9, creatinine 0.74, glucose 107, TSH 8.29, T4 1.18. REVIEW OF SYSTEMS: Pertinent positives and negatives noted in HPI. PHYSICAL EXAMINATION: Vitals reviewed GENERAL: No acute distress. Well developed, well nourished. HEENT: Pupils are round and equally reacting to light. EOMI. No scleral icterus. Normocephalic, atraumatic. CARDIOVASCULAR: Irregular, rhythm S1 and S2 present. Systolic ejection murmur Right border. PULMONARY: Chest is clear to auscultation, no wheezing, rhonchi, or crackles. ABDOMEN: Soft, nontender, nondistended, normoactive bowel sounds. No palpable organomegaly. MUSCULOSKELETAL: No apparent joint swelling and deformities. EXTREMITIES: No apparent cyanosis, clubbing, or pedal edema. NEUROLOGICAL: The patient is alert and oriented x3, Gross neurological examination did not reveal any focal deficits. SKIN: No apparent rashes. Assessment and plan Patient is 88-year-old female with A-fib on home Eliquis, hypertension, hypothyroidism who is treated for A-fib and shortness of breath. # A-fib with RVR, poorly controlled # Dyspnea due to bilateral pleural effusions likely due to CHF exacerbation EKG as above Troponin 3 times negative Chest x-ray with pleural effusion versus mass CTA chest with pleural effusion Discontinue Cardizem drip, begin oral Cardizem 30 mg p.o. 3 times daily Transition IV Lasix to oral 20 mg daily Continuous cardiac monitoring Resume home aspirin, Eliquis, Lipitor, metoprolol, Nitrostat Echocardiogram revealed EF of 40 to 45%, moderate to severe aortic regurgitation TSH 8.29, T4 1.18, should be repeated in 2 months Cardiology following Pulmonology following #Hypokalemia Potassium 3.3 Given potassium chloride 80 mEq Monitor CMP Chronic Medical Conditions #Hypothyroidism - Resume home Synthroid F: P.o. E: Replete as needed N: Heart healthy diet DVT ppx: Eliquis 2.5 mg twice daily Code status: Full code Anticipated discharge place: Home Anticipated discharge time: Tomorrow Dictation was produced using [employer] dictation software. Please excuse any grammatical, word or spelling errors. Objective - Vital Signs Vital signs: Vital Signs Temp 97.8 F 02/24/24 08:46 Pulse 100 02/24/24 11:42 Resp 18 02/24/24 11:42 BP 127/72 02/24/24 11:42 Pulse Ox 96 02/24/24 11:42 FiO2 Intake & Output 02/23/24 02/24/24 02/24/24 18:59 06:59 18:59 Intake Total 575 161 280 Balance 575 161 280 Weight 70 kg Intake: IV 40 40 Invasive Line 1 20 20 Invasive Line 2 20 20 Intake, IV Titration 125 121 Amount Diltiazem 125 mg In 125 121 Sodium Chloride 0.9% 100 ml @ 5 MG/HR 5 mls/hr IV .Q24H [facility] Rx#:[id number] Oral 450 240 Other: Voiding Method Toilet Toilet Toilet # Voids 3 - Labs CBC & Chem 7: 02/24/24 06:06 02/24/24 06:06 Labs: Abnormal Lab Results - Last 24 Hours (Table) 02/23/24 02/24/24 Range/Units 06:13 06:06 Potassium 3.3 L (3.5-5.1) mmol/L Chloride 109 H (98-107) mmol/L Glucose 107 H (74-99) mg/dL TSH 8.290 H (0.350-5.500) UIU/ML
--- NOTE | 2024-02-24 15:24 | P.PN ---
Subjective Progress Note Date: 02/24/24 Principal diagnosis: Acute systolic congestive heart failure with bilateral pleural effusions This is a 88-year-old female patient, presenting to the hospital because of shortness of breath. The patient has been having increased dyspnea for around a week and her condition has gotten progressively worse. She was also noted to have some tachycardia and confusion and altered mentation. Denied having any chest pain. Denied having any fever or chills. No cough or sputum production. No nausea vomiting or diarrhea. Based on that, the patient came into the emergency department for further care. In the ED, the patient was found to be tachycardic and her cardiac rhythm was atrial fibrillation with rapid ventricular response as the patient is known to have chronic atrial fibrillation valvular heart disease. The patient was found to be afebrile. Hemodynamically, she is maintaining her home blood pressure. Her pulse ox was 95% on room air oxygen. Blood work showed a white cell count of 10.1, hemoglobin 11.7 and a platelet count of 206. Normal coagulation profile. Electrolytes are all within normal limits. BUN is 11 with a creatinine of 0.8. Troponins were negative x 1, proBNP level was 5190 and the viral screen was negative. A chest x-ray was also done that showed a right lateral lower lobe pulmonary consolidation and in addition to that the patient had increased fullness along the right cardiac border. Patient is currently on Cardizem drip at 5 mg an hour for rate control. She was started on diuretics. Pulmonary consultation was requested.Note that this patient is known to have history of chronic atrial fibrillation, history of valvular heart disease and the patient has undergone previous mitral valve replacement back in 2010. She also has hypertension, hyperlipidemia, hypothyroidism and previous history of GI bleed that was worked up back in 2009 and the patient was found to have colonic diverticulosis and low-grade internal hemorrhoids. Patient was seen and examined today on 02/23/2024, patient seems to be doing better, breathing easier, remains on diuretics, Lasix 40 mg IV push daily, patient is on Cardizem for atrial fibrillation, CT of the chest showed no evidence of mass, no evidence of pneumonia, patient seems to have pleural effusions most likely secondary to congestive heart failure. CT of the chest is more suggestive of pulmonary edema and again there is no evidence of pulmonary embolism BNP level is elevated, consistent with congestive heart failure Patient was seen today on 02/24/2024, patient continues to do well, her breathing is much more comfortable, patient is on room air, remains on Lasix, Cardizem was discontinued she is now on oral Cardizem. Her last chest x-ray showed improvement in her pleural effusions cardiology is still following, overall pulmonary status is better today compared to the last couple of days. WBC count is 8.7 hemoglobin 11.5 electrolytes are normal renal profile is normal Objective - Vital Signs Vital signs: Vital Signs Temp 97.8 F 02/24/24 08:46 Pulse 100 02/24/24 11:42 Resp 18 02/24/24 11:42 BP 127/72 02/24/24 11:42 Pulse Ox 96 02/24/24 11:42 FiO2 Intake & Output 02/23/24 02/24/24 02/24/24 18:59 06:59 18:59 Intake Total 575 161 520 Balance 575 161 520 Weight 70 kg Intake: IV 40 40 Invasive Line 1 20 20 Invasive Line 2 20 20 Intake, IV Titration 125 121 Amount Diltiazem 125 mg In 125 121 Sodium Chloride 0.9% 100 ml @ 5 MG/HR 5 mls/hr IV .Q24H [facility] Rx#:[id number] Oral 450 480 Other: Voiding Method Toilet Toilet Toilet # Voids 3 - Exam HEENT: Head is atraumatic, normocephalic. Pupils equal, round. Sclerae is anicteric. NECK: Supple. No JVD. LUNGS: Diminished breath sounds at the bases no crackles rhonchi or wheezes HEART: Irregular rate and rhythm. Systolic ejection murmur right border, systolic murmur at the apex. ABDOMEN: Soft No tenderness. No megaly no rebound no guarding. EXTREMITIES: No pedal edema. No calf tenderness. NEUROLOGICAL: Alert oriented x 3 no gross focal deficit Psychiatric: Normal mood, affect, normal mental status examination - Labs CBC & Chem 7: 02/24/24 06:06 02/24/24 06:06 Labs: Abnormal Lab Results - Last 24 Hours (Table) 02/23/24 02/24/24 Range/Units 06:13 06:06 Potassium 3.3 L (3.5-5.1) mmol/L Chloride 109 H (98-107) mmol/L Glucose 107 H (74-99) mg/dL TSH 8.290 H (0.350-5.500) UIU/ML Assessment and Plan Assessment: Pression: Acute shortness of breath. Secondary to bilateral pleural effusions and congestive heart failure doubt underlying pneumonia improving with diuretics, ejection fraction 40 to 45%/systolic in nature Chronic atrial fibrillation with RVR and the patient is currently on Cardizem drip for rate control. The patient also been maintained on anticoagulation with Eliquis on outpatient basis History of mitral valve replacement back in 2010 History of GI bleed related to chronic diverticulosis back in 2019 Degenerative arthritis Hypothyroidism Hyperlipidemia Hypertension Recommendation: Continue diuretics patient is on Lasix 20 mg daily as ordered by cardiology Continue Eliquis Consider discharge planning once the patient is cleared by cardiology. Continue oral diltiazem Will continue to follow Time with Patient: Less than 30
[2024-02-24] MEDS: ACETAMINOPHEN TAB 325 MG TAB PO PRN (16:44)
[2024-02-24] MEDS: ASPIRIN 81 MG PO SCH (20:21)
[2024-02-25 06:53] LABS: African American GFR (CKD) 76 (>60 ml/min/1.73 sqM); Anion Gap 4 mmol/L; Blood Urea Nitrogen 11 mg/dL (7-17); Carbon Dioxide 27 mmol/L (22-30); Chloride 110 mmol/L (98-107); Glucose 112 mg/dL (74-99); Non-African American GFR(CKD) 66 (>60 ml/min/1.73 sqM); Sodium 141 mmol/L (137-145)
[2024-02-25] MEDS: FUROSEMIDE 20 MG TAB PO SCH (08:01)
[2024-02-25] MEDS: DILTIAZEM ORAL 30 MG TAB PO STA (09:34)
--- NOTE | 2024-02-25 13:30 | P.PN ---
Subjective Progress Note Date: 02/25/24 Principal diagnosis: Acute systolic congestive heart failure with bilateral pleural effusions This is a 88-year-old female patient, presenting to the hospital because of shortness of breath. The patient has been having increased dyspnea for around a week and her condition has gotten progressively worse. She was also noted to have some tachycardia and confusion and altered mentation. Denied having any chest pain. Denied having any fever or chills. No cough or sputum production. No nausea vomiting or diarrhea. Based on that, the patient came into the emergency department for further care. In the ED, the patient was found to be tachycardic and her cardiac rhythm was atrial fibrillation with rapid ventricular response as the patient is known to have chronic atrial fibrillation valvular heart disease. The patient was found to be afebrile. Hemodynamically, she is maintaining her home blood pressure. Her pulse ox was 95% on room air oxygen. Blood work showed a white cell count of 10.1, hemoglobin 11.7 and a platelet count of 206. Normal coagulation profile. Electrolytes are all within normal limits. BUN is 11 with a creatinine of 0.8. Troponins were negative x 1, proBNP level was 5190 and the viral screen was negative. A chest x-ray was also done that showed a right lateral lower lobe pulmonary consolidation and in addition to that the patient had increased fullness along the right cardiac border. Patient is currently on Cardizem drip at 5 mg an hour for rate control. She was started on diuretics. Pulmonary consultation was requested.Note that this patient is known to have history of chronic atrial fibrillation, history of valvular heart disease and the patient has undergone previous mitral valve replacement back in 2010. She also has hypertension, hyperlipidemia, hypothyroidism and previous history of GI bleed that was worked up back in 2009 and the patient was found to have colonic diverticulosis and low-grade internal hemorrhoids. Patient was seen and examined today on 02/23/2024, patient seems to be doing better, breathing easier, remains on diuretics, Lasix 40 mg IV push daily, patient is on Cardizem for atrial fibrillation, CT of the chest showed no evidence of mass, no evidence of pneumonia, patient seems to have pleural effusions most likely secondary to congestive heart failure. CT of the chest is more suggestive of pulmonary edema and again there is no evidence of pulmonary embolism BNP level is elevated, consistent with congestive heart failure Patient was seen today on 02/24/2024, patient continues to do well, her breathing is much more comfortable, patient is on room air, remains on Lasix, Cardizem was discontinued she is now on oral Cardizem. Her last chest x-ray showed improvement in her pleural effusions cardiology is still following, overall pulmonary status is better today compared to the last couple of days. WBC count is 8.7 hemoglobin 11.5 electrolytes are normal renal profile is normal Seen today on 02/25/2024, patient continues to do well improving steadily she is on room air, today she was walking down the hallway with assistance. Does not seem to be in any distress, patient is comfortable, and apparently responded well with diuretics, patient presented with mostly congestive heart failure. No evidence of pneumonia. WBC count is 8.7 hemoglobin is 11.5 electrolytes are normal renal profile is normal Objective - Vital Signs Vital signs: Vital Signs Temp 98.2 F 02/25/24 07:58 Pulse 93 02/25/24 11:32 Resp 15 02/25/24 11:32 BP 99/53 02/25/24 11:32 Pulse Ox 94 L 02/25/24 11:32 FiO2 Intake & Output 02/24/24 02/25/24 02/25/24 18:59 06:59 18:59 Intake Total 520 140 260 Output Total 700 100 300 Balance -180 40 -40 Weight 68.4 kg Intake: IV 40 20 20 Invasive Line 1 20 20 20 Invasive Line 2 20 Oral 480 120 240 Output: Urine 700 100 300 Other: Voiding Method Toilet Toilet Toilet # Voids 1 - Exam General: Revealed 88-year-old female in no distress, on room air. HEENT: Head is atraumatic, normocephalic. Pupils equal, round. Sclerae is anicteric. NECK: Supple. No JVD. LUNGS: Diminished breath sounds at the bases no crackles rhonchi or wheezes HEART: Irregular rate and rhythm. Systolic ejection murmur right border, systolic murmur at the apex. ABDOMEN: Soft No tenderness. No megaly no rebound no guarding. EXTREMITIES: No pedal edema. No calf tenderness. NEUROLOGICAL: Alert oriented x 3 no gross focal deficit Psychiatric: Normal mood, affect, normal mental status examination - Labs CBC & Chem 7: 02/24/24 06:06 02/25/24 06:08 Labs: Abnormal Lab Results - Last 24 Hours (Table) 02/25/24 Range/Units 06:08 Chloride 110 H (98-107) mmol/L Glucose 112 H (74-99) mg/dL Assessment and Plan Assessment: Pression: Acute shortness of breath. Secondary to bilateral pleural effusions and congestive heart failure doubt underlying pneumonia improving with diuretics, ejection fraction 40 to 45%/systolic in nature Chronic atrial fibrillation with RVR and the patient is currently on Cardizem drip for rate control. The patient also been maintained on anticoagulation with Eliquis on outpatient basis History of mitral valve replacement back in 2010 History of GI bleed related to chronic diverticulosis back in 2019 Degenerative arthritis Hypothyroidism Hyperlipidemia Hypertension Recommendation: Continue diuretics patient is on Lasix 20 mg daily as ordered by cardiology Continue Eliquis Consider discharge planning Continue oral diltiazem Will continue to follow Time with Patient: Less than 30
--- NOTE | 2024-02-25 14:29 | P.PN ---
Subjective Progress Note Date: 02/25/24 Reason for Consult (text): A-fib with RVR History of present illness: This is an 88-year-old female patient of Dr. Crowder with past medical history of mitral valve prolapse status post mitral valve replacement with bioprosthetic valve, atrial tachycardia, paroxysmal atrial fibrillation, hypertension, hyperlipidemia. We have been asked to evaluate the patient for A-fib with RVR. Patient presented to the hospital due to difficulty with breathing and pain when she takes a deep breath. Apparently symptoms have been going on for greater than 1 week and the patient had not told her family members. Son states that her heart rate has been jumping up and down since she has been in the hospital. Patient states that she is now feeling better and she still has a little bit of pain with deep breathing. Patient has been noted to have more confusion per her son. Patient has been started on Cardizem drip and resumed on Eliquis. Cardizem drip is currently at 5 mg/h. [place] [address]. -EKG: #1 atrial fibrillation 144 bpm, #2 atrial fibrillation 99 bpm -Chest x-ray: New right lateral lower lung consolidation with increased right heart border consolidation. Correlated for loculated pleural effusion versus mass. -CTA chest: No evidence of pulmonary embolism. Cardiomegaly, bilateral pleural effusions and interlobular septal thickening suggestive of pulmonary edema. -Laboratory studies: CBC unremarkable. Sodium 142, potassium 3.7, BUN 11 creatinine 0.82. Troponin negative x 3. proBNP 5190. Triglycerides 84, cholesterol 105, LDL 47, HDL 40. Influenza A, influenza B, RSV, COVID-19 not detected. -Home cardiac medications: Eliquis 2.5 mg twice daily, aspirin 81 mg daily, lisinopril 2.5 mg daily, Toprol XL 100 mg daily in the morning and 50 mg in the evening, Zocor 10 mg at bedtime. -Echocardiogram performed in the office on 01/28/2022: EF 55%, mild LVH, moderate aortic regurgitation, biological mitral valve prosthesis, moderate tricuspid regurgitation, PASP 40 mmHg. 2 AI jets noted on M mode imaging consider SARAH in the future. 02/24/2024 Patient seen and examined. Patient states that she is doing better today. She denies any chest pain no palpitations. She remains in atrial fibrillation in the 90s. Blood pressure 114/52. Family is concerned the patient has not been out of bed and that her heart rate will go up. She does remain on IV Cardizem which will be discontinued. Repeat blood work reveals hemoglobin 11.5. Potassium 3.3, creatinine 0.74. Potassium has been replaced. Echocardiogram results have been reviewed with the patient and son at the bedside. Echocardiogram reveals EF of 40 to 45%, bioprosthetic mitral valve with moderate to severe mitral stenosis, mean gradient 10 mmHg. Mild to moderate mitral regurgitation, moderate to severe aortic regurgitation, moderate tricuspid regurgitation. 02/25/24 Patient seen and examined. Heart rate is running between 90 and 113. She has walked 3 times outside of her room. Yesterday we added Cardizem oral 30 mg 3 times daily and will increase this today. Son is at the bedside and is concerned about heart rate being under control before she goes home. Blood pressure 99/53, pulse ox 94% on room air. Sodium 141, potassium 4, creatinine 0.8. Physical examination: Gen: This is an 88-year-old female in no acute distress VS: reviewed HEENT: Head is atraumatic, normocephalic. Pupils equal, round. Sclerae is anicteric. NECK: Supple. No JVD. LUNGS: Clear to auscultation. No wheezes or rhonchi. No intercostal retractions. HEART: Irregular rate and rhythm. Systolic ejection murmur right border, systolic murmur at the apex. ABDOMEN: Soft No tenderness. EXTREMITIES: No pedal edema. No calf tenderness. NEUROLOGICAL: Patient is awake, alert. Assessment: Persistent atrial fibrillation currently rate controlled at rest Chest pain with deep breath Shortness of breath possibly due to pleural effusion versus pneumonia versus A- fib with RVR Confusion per family Mitral valve prolapse status post mitral valve replacement with bioprosthetic valve Hypertension Hyperlipidemia Hypothyroidism Plan: Continue patient's home cardiac medications: Eliquis 2.5 mg twice daily, aspirin 81 mg daily, Lipitor, Toprol XL 100 mg in the morning and 50 mg in the evening Increase oral Cardizem to 60 mg 3 times daily Continue Lasix oral 20 mg daily Monitor ERLIN, daily weights, electrolytes and renal function Increase activity and monitor heart rate Plan for discharge home later today if heart rate is controlled. At the time of discharge, patient will follow-up with Dr. Crowder in 1 to 2 weeks. Further recommendations to follow based upon clinical course Nurse practitioner note has been reviewed, I agree with documented findings and plan of care. Patient was seen and examined. Objective - Vital Signs Vital signs: Vital Signs Temp 98.2 F 02/25/24 07:58 Pulse 93 02/25/24 11:32 Resp 15 02/25/24 11:32 BP 99/53 02/25/24 11:32 Pulse Ox 94 L 02/25/24 11:32 FiO2 Intake & Output 02/24/24 02/25/24 02/25/24 18:59 06:59 18:59 Intake Total 520 140 460 Output Total 700 100 300 Balance -180 40 160 Weight 68.4 kg Intake: IV 40 20 20 Invasive Line 1 20 20 20 Invasive Line 2 20 Oral 480 120 440 Output: Urine 700 100 300 Other: Voiding Method Toilet Toilet Toilet # Voids 1 - Labs CBC & Chem 7: 02/24/24 06:06 02/25/24 06:08 Labs: Abnormal Lab Results - Last 24 Hours (Table) 02/25/24 Range/Units 06:08 Chloride 110 H (98-107) mmol/L Glucose 112 H (74-99) mg/dL
--- NOTE | 2024-02-25 15:08 | P.PN ---
Subjective Progress Note Date: 02/25/24 History of present illness; Patient is 88-year-old female with A-fib on home Eliquis, hypertension, hypothy roidism who presents with shortness of breath and palpitations. She states her symptoms have been ongoing for the last 2 weeks. She states she has some chest pain with deep breathing, mostly substernal and dull. She admits to poor control of her A-fib. Currently she feels somewhat improved but continues to have stated chest pain with deep inspiration. Patient reports absence of fever, chills, diaphoresis. WBC 10.1, hemoglobin 11.7, sodium 142, potassium 3.7, chloride 109, bicarb 22, troponin negative x 3, lipid panel WNL, UA unremarkable, respiratory viral panel negative. EKG done in the ER independently interpreted showed A-fib heart rate of 144, no ST segment elevation or depression seen, no T-wave inversions seen. Chest x-ray done independently interpreted in the ER showed right lateral lower lung consolidation with increased right heart border consolidation. CTA chest independently interpreted showed no pulmonary embolism, bilateral basilar pulmonary edema present Progress note February 24, 2024 Patient seen and examined at bedside. No overnight events. Patient's dyspnea seems to have improved with no complaints of chest pain on deep inspiration. She did ambulate this morning with heart rate increasing to 118 during that time. Cardizem drip was discontinued she is now on oral Cardizem 30 mg p.o. 3 times daily. She is now on oral Lasix 20 mg daily. Labs WBC 8.7, hemoglobin 11.5, platelets 14.6, sodium 140, potassium 3.3, bicarb 27, BUN 9, creatinine 0.74, glucose 107, TSH 8.29, T4 1.18. February 25, 2024 Patient seen and examined at bedside. No overnight events. Patient stated no shortness of breath or chest pain. Heart rate still between 90-113. BP 99/53. Increased oral Cardizem to 60 mg p.o. 3 times daily for better rate control. She remains on oral Lasix 20 mg daily. She states she is ambulating and eating well. Labs sodium 141, potassium 4.0, chloride 110, bicarb 27, BUN 11, creatinine 0.80, glucose 112. REVIEW OF SYSTEMS: Pertinent positives and negatives noted in HPI. PHYSICAL EXAMINATION: Vitals reviewed GENERAL: No acute distress. Well developed, well nourished. HEENT: Pupils are round and equally reacting to light. EOMI. No scleral icterus. Normocephalic, atraumatic. CARDIOVASCULAR: Irregular, rhythm S1 and S2 present. Systolic ejection murmur Right border. PULMONARY: Chest is clear to auscultation, no wheezing, rhonchi, or crackles. ABDOMEN: Soft, nontender, nondistended, normoactive bowel sounds. No palpable organomegaly. MUSCULOSKELETAL: No apparent joint swelling and deformities. EXTREMITIES: No apparent cyanosis, clubbing, or pedal edema. NEUROLOGICAL: The patient is alert and oriented x3, Gross neurological examination did not reveal any focal deficits. SKIN: No apparent rashes. Assessment and plan Patient is 88-year-old female with A-fib on home Eliquis, hypertension, hypothyroidism who is treated for A-fib and shortness of breath. # A-fib with RVR, poorly controlled # Dyspnea due to bilateral pleural effusions likely due to CHF exacerbation EKG as above Troponin 3 times negative Chest x-ray with pleural effusion versus mass CTA chest with pleural effusion Discontinue Cardizem drip, begin oral Cardizem 30 mg p.o. 3 times daily Transition IV Lasix to oral 20 mg daily Continuous cardiac monitoring Resume home aspirin, Eliquis, Lipitor, metoprolol, Nitrostat Echocardiogram revealed EF of 40 to 45%, moderate to severe aortic regurgitation TSH 8.29, T4 1.18, should be repeated in 2 months Cardiology following Pulmonology following #Hypokalemia, resolved Initial potassium 3.3 => 4.0 Given potassium chloride 80 mEq Monitor CMP Chronic Medical Conditions #Hypothyroidism - Resume home Synthroid F: P.o. E: Replete as needed N: Heart healthy diet DVT ppx: Eliquis 2.5 mg twice daily Code status: Full code Anticipated discharge place: Home Anticipated discharge time: Tomorrow Dictation was produced using [employer] dictation software. Please excuse any grammatical, word or spelling errors. Objective - Vital Signs Vital signs: Vital Signs Temp 98.2 F 02/25/24 07:58 Pulse 93 02/25/24 11:32 Resp 15 02/25/24 11:32 BP 99/53 02/25/24 11:32 Pulse Ox 94 L 02/25/24 11:32 FiO2 Intake & Output 12/03/24 12/04/24 12/04/24 18:59 06:59 18:59 Intake Total 520 140 460 Output Total 700 100 300 Balance -180 40 160 Weight 68.4 kg Intake: IV 40 20 20 Invasive Line 1 20 20 20 Invasive Line 2 20 Oral 480 120 440 Output: Urine 700 100 300 Other: Voiding Method Toilet Toilet Toilet # Voids 1 - Labs CBC & Chem 7: 02/24/24 06:06 02/25/24 06:08 Labs: Abnormal Lab Results - Last 24 Hours (Table) 02/25/24 Range/Units 06:08 Chloride 110 H (98-107) mmol/L Glucose 112 H (74-99) mg/dL
[2024-02-25] MEDS: DILTIAZEM ORAL 60 MG TAB PO SCH (15:37)
[2024-02-26 07:33] LABS: HCT 36.9 % (34.0-46.0); HGB 11.9 gm/dL (11.4-16.0); Hypochromasia Moderate; MCHC 32.2 g/dL (31.0-37.0); MCV 93.3 fL (80.0-100.0); Mean Platelet Volume 8.7; Platelet Count 191 k/uL (150-450); RBC 3.96 m/uL (3.80-5.40); RDW 14.4 % (11.5-15.5); WBC 8.6 k/uL (3.8-10.6)
[2024-02-26 08:24] LABS: Potassium 4.3 mmol/L (3.5-5.1)
[2024-02-26 08:25] LABS: African American GFR (CKD) 80 (>60 ml/min/1.73 sqM); Anion Gap 5 mmol/L; Blood Urea Nitrogen 11 mg/dL (7-17); Calcium 9.3 mg/dL (8.4-10.2); Carbon Dioxide 27 mmol/L (22-30); Chloride 108 mmol/L (98-107); Glucose 114 mg/dL (74-99); Non-African American GFR(CKD) 69 (>60 ml/min/1.73 sqM); Sodium 140 mmol/L (137-145)
[2024-02-26 08:32] VITALS: TEMP 97.6
[2024-02-26] MEDS: AMIODARONE 200 MG TAB PO SCH (09:39)
[2024-02-26 11:55] VITALS: BP 117/74; PULSE 83; RESP 16
--- NOTE | 2024-02-26 13:51 | P.PN ---
Subjective Progress Note Date: 02/26/24 Reason for Consult (text): A-fib with RVR History of present illness: This is an 88-year-old female patient of Dr. Crowder with past medical history of mitral valve prolapse status post mitral valve replacement with bioprosthetic valve, atrial tachycardia, paroxysmal atrial fibrillation, hypertension, hyperlipidemia. We have been asked to evaluate the patient for A-fib with RVR. Patient presented to the hospital due to difficulty with breathing and pain when she takes a deep breath. Apparently symptoms have been going on for greater than 1 week and the patient had not told her family members. Son states that her heart rate has been jumping up and down since she has been in the hospital. Patient states that she is now feeling better and she still has a little bit of pain with deep breathing. Patient has been noted to have more confusion per her son. Patient has been started on Cardizem drip and resumed on Eliquis. Cardizem drip is currently at 5 mg/h. [place] [id number]. -EKG: #1 atrial fibrillation 144 bpm, #2 atrial fibrillation 99 bpm -Chest x-ray: New right lateral lower lung consolidation with increased right heart border consolidation. Correlated for loculated pleural effusion versus mass. -CTA chest: No evidence of pulmonary embolism. Cardiomegaly, bilateral pleural effusions and interlobular septal thickening suggestive of pulmonary edema. -Laboratory studies: CBC unremarkable. Sodium 142, potassium 3.7, BUN 11 creatinine 0.82. Troponin negative x 3. proBNP 5190. Triglycerides 84, cholesterol 105, LDL 47, HDL 40. Influenza A, influenza B, RSV, COVID-19 not detected. -Home cardiac medications: Eliquis 2.5 mg twice daily, aspirin 81 mg daily, lisinopril 2.5 mg daily, Toprol XL 100 mg daily in the morning and 50 mg in the evening, Zocor 10 mg at bedtime. -Echocardiogram performed in the office on 01/28/2022: EF 55%, mild LVH, moderate aortic regurgitation, biological mitral valve prosthesis, moderate tricuspid regurgitation, PASP 40 mmHg. 2 AI jets noted on M mode imaging consider SARAH in the future. 02/24/2024 Patient seen and examined. Patient states that she is doing better today. She denies any chest pain no palpitations. She remains in atrial fibrillation in the 90s. Blood pressure 114/52. Family is concerned the patient has not been out of bed and that her heart rate will go up. She does remain on IV Cardizem which will be discontinued. Repeat blood work reveals hemoglobin 11.5. Potassium 3.3, creatinine 0.74. Potassium has been replaced. Echocardiogram results have been reviewed with the patient and son at the bedside. Echocardiogram reveals EF of 40 to 45%, bioprosthetic mitral valve with moderate to severe mitral stenosis, mean gradient 10 mmHg. Mild to moderate mitral regurgitation, moderate to severe aortic regurgitation, moderate tricuspid regurgitation. 02/25/24 Patient seen and examined. Heart rate is running between 90 and 113. She has walked 3 times outside of her room. Yesterday we added Cardizem oral 30 mg 3 times daily and will increase this today. Son is at the bedside and is concerned about heart rate being under control before she goes home. Blood pressure 99/53, pulse ox 94% on room air. Sodium 141, potassium 4, creatinine 0.8. 02/26/2024 Patient seen and examined. Heart rates are running in the low 100s and 90s. Yesterday, we increased Cardizem to 60 mg 3 times daily. Physical examination: Gen: This is an 88-year-old female in no acute distress VS: reviewed HEENT: Head is atraumatic, normocephalic. Pupils equal, round. Sclerae is anicteric. NECK: Supple. No JVD. LUNGS: Clear to auscultation. No wheezes or rhonchi. No intercostal retractions. HEART: Irregular rate and rhythm. Systolic ejection murmur right border, systolic murmur at the apex. ABDOMEN: Soft No tenderness. EXTREMITIES: No pedal edema. No calf tenderness. NEUROLOGICAL: Patient is awake, alert. Assessment: Persistent atrial fibrillation currently rate controlled at rest Chest pain with deep breath Shortness of breath possibly due to pleural effusion versus pneumonia versus A- fib with RVR Confusion per family Mitral valve prolapse status post mitral valve replacement with bioprosthetic valve Hypertension Hyperlipidemia Hypothyroidism Plan: Continue patient's home cardiac medications: Amiodarone 200 mg twice daily Eliquis 2.5 mg twice daily, aspirin 81 mg daily, Lipitor, Toprol XL 100 mg in the morning and 50 mg in the evening Continue patient on Cardizem 60 mg 3 times daily Continue Lasix oral 20 mg daily Patient is cleared for discharge from cardiology At the time of discharge, patient will follow-up with Dr. Crowder in 1 to 2 weeks. Nurse practitioner note has been reviewed, I agree with documented findings and plan of care. Patient was seen and examined. Objective - Vital Signs Vital signs: Vital Signs Temp 97.6 F 02/26/24 08:18 Pulse 83 02/26/24 13:15 Resp 16 02/26/24 11:10 BP 117/74 02/26/24 11:10 Pulse Ox 96 02/26/24 11:10 FiO2 Intake & Output 02/25/24 02/26/24 02/26/24 18:59 06:59 18:59 Intake Total 660 20 240 Output Total 300 Balance 360 20 240 Weight 67.8 kg Intake: IV 20 20 Invasive Line 1 20 20 Oral 640 240 Output: Urine 300 Other: Voiding Method Toilet Toilet Toilet # Voids 1 # Bowel Movements 1 - Labs CBC & Chem 7: 02/26/24 07:00 02/26/24 07:00 Labs: Abnormal Lab Results - Last 24 Hours (Table) 02/26/24 Range/Units 07:00 Chloride 108 H (98-107) mmol/L Glucose 114 H (74-99) mg/dL
--- NOTE | 2024-02-26 14:59 | P.DS ---
Providers Date of admission: 02/22/24 13:44 Expected date of discharge: 02/26/24 Attending physician: Joaquim Galan MD Consults: 02/22/24 13:44 Consult Physician Urgent Consulting Provider: Gloria Garcia Consult Reason/Comments: Pleural effusion versus mass Do you want consulting provider notified?: Yes Consult Physician Urgent Consulting Provider: [facility] Consult Reason/Comments: Atrial fibrillation with rapid ventricular response Do you want consulting provider notified?: Yes Primary care physician: Stated None Hospital Course: Discharge diagnoses; # A-fib with RVR #Bilateral pleural effusions likely due to CHF exacerbation #Hypokalemia, resolved #Mitral valve prolapse status post mitral valve replacement with bioprosthetic v alve #Hypertension #Hyperlipidemia #Hypothyroidism Hospital course; History of present illness; Patient is 88-year-old female with A-fib on home Eliquis, hypertension, hypothyroidism who presents with shortness of breath and palpitations. She states her symptoms have been ongoing for the last 2 weeks. She states she has some chest pain with deep breathing, mostly substernal and dull. She admits to poor control of her A-fib. Currently she feels somewhat improved but continues to have stated chest pain with deep inspiration. Patient reports absence of fever, chills, diaphoresis. WBC 10.1, hemoglobin 11.7, sodium 142, potassium 3.7, chloride 109, bicarb 22, troponin negative x 3, lipid panel WNL, UA unremarkable, respiratory viral panel negative. EKG done in the ER independently interpreted showed A-fib heart rate of 144, no ST segment elevation or depression seen, no T-wave inversions seen. Chest x-ray done independently interpreted in the ER showed right lateral lower lung consol idation with increased right heart border consolidation. CTA chest independently interpreted showed no pulmonary embolism, bilateral basilar pulmonary edema present. While inpatient patient treated for poorly controlled A-fib with RVR and bilateral pleural effusions due to CHF exacerbation. She began on Cardizem drip and transition to orals with amiodarone. She also was started on IV Lasix and transition to oral. Echocardiogram revealed EF of 40 to 45% with moderate to severe aortic regurgitation. Hypokalemia was treated. Patient is discharged in stable condition. New medications include diltiazem 60 mg oral 3 times daily, amiodarone 200 mg p.o. twice daily, furosemide 20 mg p.o. daily. TSH 8.29, T4 1.18, should be repeated in 2 months. She is to follow-up with her PCP and cardiology. PHYSICAL EXAMINATION: Vitals reviewed GENERAL: No acute distress. Well developed, well nourished. HEENT: Pupils are round and equally reacting to light. EOMI. No scleral icterus. Normocephalic, atraumatic. CARDIOVASCULAR: Irregular, rhythm S1 and S2 present. Systolic ejection murmur Right border. PULMONARY: Chest is clear to auscultation, no wheezing, rhonchi, or crackles. ABDOMEN: Soft, nontender, nondistended, normoactive bowel sounds. No palpable organomegaly. MUSCULOSKELETAL: No apparent joint swelling and deformities. EXTREMITIES: No apparent cyanosis, clubbing, or pedal edema. NEUROLOGICAL: The patient is alert and oriented x3, Gross neurological examination did not reveal any focal deficits. SKIN: No apparent rashes. Dictation was produced using [employer] dictation software. please excuse any grammatical, word or spelling errors. Patient Condition at Discharge: Stable Plan - Discharge Summary Discharge Rx Participant: No New Discharge Prescriptions: New Diltiazem Oral [Cardizem*] 60 mg PO TID #90 tab Amiodarone [Cordarone] 200 mg PO BID #60 tab Furosemide [Lasix] 20 mg PO DAILY #30 tab Continue Simvastatin [Zocor] 10 mg PO HS Zinc 50 mg PO HS Metoprolol Succinate [Toprol XL] 100 mg PO DAILY Magnesium Oxide [Magnesium] 500 mg PO HS Aspirin EC [Ecotrin Low Dose] 81 mg PO HS Levothyroxine Sodium [Synthroid] 88 mcg PO DAILY Apixaban [Eliquis] 2.5 mg PO BID L.acidoph,Paracasei, B.lactis [Probiotic] 1 cap PO DAILY lisinopriL 2.5 mg PO DAILY Multivit-Min/FA/Lycopen/Lutein [Centrum Silver Tablet] 1 tab PO DAILY Cholecalciferol [Vitamin D3 (25 Mcg = 1000 Iu)] 25 mcg PO BID Metoprolol Succinate (ER) [Toprol XL] 50 mg PO HS Ascorbic Acid [Vitamin C] 500 mg PO HS Discharge Medication List Simvastatin [Zocor] 10 mg PO HS 11/18/19 [History] L.acidoph,Paracasei, B.lactis [Probiotic] 1 cap PO DAILY 05/27/21 [History] Multivit-Min/FA/Lycopen/Lutein [Centrum Silver Tablet] 1 tab PO DAILY 05/27/21 [History] Zinc 50 mg PO HS 05/27/21 [History] lisinopriL 2.5 mg PO DAILY 05/27/21 [History] Cholecalciferol [Vitamin D3 (25 Mcg = 1000 Iu)] 25 mcg PO BID 07/20/21 [History] Apixaban [Eliquis] 2.5 mg PO BID 02/22/24 [History] Ascorbic Acid [Vitamin C] 500 mg PO HS 02/22/24 [History] Aspirin EC [Ecotrin Low Dose] 81 mg PO HS 02/22/24 [History] Levothyroxine Sodium [Synthroid] 88 mcg PO DAILY 02/22/24 [History] Magnesium Oxide [Magnesium] 500 mg PO HS 02/22/24 [History] Metoprolol Succinate (ER) [Toprol XL] 50 mg PO HS 02/22/24 [History] Metoprolol Succinate [Toprol XL] 100 mg PO DAILY 02/22/24 [History] Amiodarone [Cordarone] 200 mg PO BID #60 tab 02/26/24 [Rx] Diltiazem Oral [Cardizem*] 60 mg PO TID #90 tab 02/26/24 [Rx] Furosemide [Lasix] 20 mg PO DAILY #30 tab 02/26/24 [Rx] Follow up Appointment(s)/Referral(s): Sánchez Crowder MD [STAFF PHYSICIAN] - 03/02/24 10:30 am None,Stated [Primary Care Provider] - 1-2 days (Please find a primary care physician and follow up [facility]O.) Patient Instructions/Handouts: A-fib (Atrial Fibrillation) (DC), Pleural Effusion (DC) Discharge/Stand Alone Forms: Area PCPs Discharge Disposition: HOME SELF-CARE
--- NOTE | 2024-02-26 16:22 | P.PN ---
Subjective Progress Note Date: 02/26/24 Principal diagnosis: Acute systolic congestive heart failure with bilateral pleural effusions This is a 88-year-old female patient, presenting to the hospital because of shortness of breath. The patient has been having increased dyspnea for around a week and her condition has gotten progressively worse. She was also noted to have some tachycardia and confusion and altered mentation. Denied having any chest pain. Denied having any fever or chills. No cough or sputum production. No nausea vomiting or diarrhea. Based on that, the patient came into the emergency department for further care. In the ED, the patient was found to be tachycardic and her cardiac rhythm was atrial fibrillation with rapid ventricular response as the patient is known to have chronic atrial fibrillation valvular heart disease. The patient was found to be afebrile. Hemodynamically, she is maintaining her home blood pressure. Her pulse ox was 95% on room air oxygen. Blood work showed a white cell count of 10.1, hemoglobin 11.7 and a platelet count of 206. Normal coagulation profile. Electrolytes are all within normal limits. BUN is 11 with a creatinine of 0.8. Troponins were negative x 1, proBNP level was 5190 and the viral screen was negative. A chest x-ray was also done that showed a right lateral lower lobe pulmonary consolidation and in addition to that the patient had increased fullness along the right cardiac border. Patient is currently on Cardizem drip at 5 mg an hour for rate control. She was started on diuretics. Pulmonary consultation was requested.Note that this patient is known to have history of chronic atrial fibrillation, history of valvular heart disease and the patient has undergone previous mitral valve replacement back in 2010. She also has hypertension, hyperlipidemia, hypothyroidism and previous history of GI bleed that was worked up back in 2009 and the patient was found to have colonic diverticulosis and low-grade internal hemorrhoids. Patient was seen and examined today on 02/23/2024, patient seems to be doing better, breathing easier, remains on diuretics, Lasix 40 mg IV push daily, patient is on Cardizem for atrial fibrillation, CT of the chest showed no evidence of mass, no evidence of pneumonia, patient seems to have pleural effusions most likely secondary to congestive heart failure. CT of the chest is more suggestive of pulmonary edema and again there is no evidence of pulmonary embolism BNP level is elevated, consistent with congestive heart failure Patient was seen today on 02/24/2024, patient continues to do well, her breathing is much more comfortable, patient is on room air, remains on Lasix, Cardizem was discontinued she is now on oral Cardizem. Her last chest x-ray showed improvement in her pleural effusions cardiology is still following, overall pulmonary status is better today compared to the last couple of days. WBC count is 8.7 hemoglobin 11.5 electrolytes are normal renal profile is normal Seen today on 02/25/2024, patient continues to do well improving steadily she is on room air, today she was walking down the hallway with assistance. Does not seem to be in any distress, patient is comfortable, and apparently responded well with diuretics, patient presented with mostly congestive heart failure. No evidence of pneumonia. WBC count is 8.7 hemoglobin is 11.5 electrolytes are normal renal profile is normal Seen today on 02/26/2024, patient is doing well, sitting at the bedside chair in no distress, on room air, she was cleared by cardiology for discharge today, and I have cleared her also for discharge. Hardly any pulmonary symptoms no cough no wheezing patient responded well to diuretics mostly Objective - Vital Signs Vital signs: Vital Signs Temp 97.6 F 02/26/24 08:18 Pulse 83 02/26/24 13:15 Resp 16 02/26/24 11:10 BP 117/74 02/26/24 11:10 Pulse Ox 96 02/26/24 11:10 FiO2 Intake & Output 02/25/24 02/26/24 02/26/24 18:59 06:59 18:59 Intake Total 660 20 240 Output Total 300 Balance 360 20 240 Weight 67.8 kg Intake: IV 20 20 Invasive Line 1 20 20 Oral 640 240 Output: Urine 300 Other: Voiding Method Toilet Toilet Toilet # Voids 1 # Bowel Movements 1 - Exam General: Revealed 88-year-old female in no distress, on room air. HEENT: Head is atraumatic, normocephalic. Pupils equal, round. Sclerae is anicteric. NECK: Supple. No JVD. LUNGS: Diminished breath sounds at the bases no crackles rhonchi or wheezes HEART: Irregular rate and rhythm. Systolic ejection murmur right border, systolic murmur at the apex. ABDOMEN: Soft No tenderness. No megaly no rebound no guarding. EXTREMITIES: No pedal edema. No calf tenderness. NEUROLOGICAL: Alert oriented x 3 no gross focal deficit Psychiatric: Normal mood, affect, normal mental status examination - Labs CBC & Chem 7: 02/26/24 07:00 02/26/24 07:00 Labs: Abnormal Lab Results - Last 24 Hours (Table) 02/26/24 Range/Units 07:00 Chloride 108 H (98-107) mmol/L Glucose 114 H (74-99) mg/dL Assessment and Plan Assessment: Pression: Acute shortness of breath. Secondary to bilateral pleural effusions and congestive heart failure doubt underlying pneumonia improving with diuretics, ejection fraction 40 to 45%/systolic in nature Chronic atrial fibrillation with RVR and the patient is currently on Cardizem drip for rate control. The patient also been maintained on anticoagulation with Eliquis on outpatient basis History of mitral valve replacement back in 2010 History of GI bleed related to chronic diverticulosis back in 2019 Degenerative arthritis Hypothyroidism Hyperlipidemia Hypertension Recommendation: Continue oral diuretics Continue Eliquis Cleared for discharge by me and by cardiology Time with Patient: Less than 30
== END 2024-02-26 14:17 | disposition home or self-care (01) | DRG 308 ==
LOC: EC 10:16 → 3SCARD 13:44
PROVIDERS: ADMIT Internal Medicine; ATTEND Internal Medicine
DX: I48.19 Other persistent atrial fibrillation (principal); I50.21 Acute systolic (congestive) heart failure; I11.0 Hypertensive heart disease with heart failure; Z95.3 Presence of xenogenic heart valve; E03.9 Hypothyroidism, unspecified; I35.1 Nonrheumatic aortic (valve) insufficiency; E87.6 Hypokalemia; E78.5 Hyperlipidemia, unspecified; H91.90 Unspecified hearing loss, unspecified ear; Z79.01 Long term (current) use of anticoagulants; Z79.890 Hormone replacement therapy; Z79.899 Other long term (current) drug therapy; Z79.82 Long term (current) use of aspirin
CPT/HCPCS: 36415; 71046; 71275; 80048; 80053; 80061; 81001; 83605; 83735; 83880; 84439; 84443; 84484; 85025; 85027; 85610; 85730; 87636; 93005; 93306; 96365; 96366; 96368; 96375; 99291

== ENCOUNTER 2024-06-11 14:58 | Inpatient (IN) | payer MEDICARE ==
[2024-06-11] MEDS ORDERED: Kcentra / Balfaxar PER PHARMACY 1 EACH MISC MISCELLANE PRN (15:15)
--- NOTE | 2024-06-11 15:20 | ED ---
General Adult HPI - General Stated complaint: Fall Time Seen by Provider: 06/11/24 15:11 - History of Present Illness Initial comments: Dictation was produced using [employer] dictation software. please excuse any grammatical, word or spelling errors. Chief Complaint: 88-year-old female presents after fall History of Present Illness: Patient patient is an 88-year-old female presents to the emergency department after fall. Patient brought to the emergency department by EMS. She was noted sitting on the driveway by her neighbors. Unclear when she fell however there is suspicion that she had fallen within the last couple hours. Patient does take anticoagulation medications. Patient is a poor historian. While en route to the emergency department patient began complaining of a headache. It is unclear according to patient or EMS what patient takes anticoagulation medications for. The ROS documented in this emergency department record has been reviewed and confirmed by me. Those systems with pertinent positive or negative responses have been documented in the HPI. All other systems are other negative and/or noncontributory. - Related Data Home Medications Medication Instructions Recorded Confirmed Simvastatin [Zocor] 10 mg PO HS 11/18/19 02/22/24 L.acidoph,Paracasei, B.lactis 1 cap PO DAILY 05/27/21 02/22/24 [Probiotic] Multivit-Min/FA/Lycopen/Lutein 1 tab PO DAILY 05/27/21 02/22/24 [Centrum Silver Tablet] Zinc 50 mg PO HS 05/27/21 02/22/24 lisinopriL 2.5 mg PO DAILY 05/27/21 02/22/24 Cholecalciferol [Vitamin D3 (25 25 mcg PO BID 07/20/21 02/22/24 Mcg = 1000 Iu)] Apixaban [Eliquis] 2.5 mg PO BID 02/22/24 02/22/24 Ascorbic Acid [Vitamin C] 500 mg PO HS 02/22/24 02/22/24 Aspirin EC [Ecotrin Low Dose] 81 mg PO HS 02/22/24 02/22/24 Levothyroxine Sodium [Synthroid] 88 mcg PO DAILY 02/22/24 02/22/24 Magnesium Oxide [Magnesium] 500 mg PO HS 02/22/24 02/22/24 Metoprolol Succinate (ER) [Toprol 50 mg PO HS 02/22/24 02/22/24 XL] Metoprolol Succinate [Toprol XL] 100 mg PO DAILY 02/22/24 02/22/24 Previous Rx's Medication Instructions Recorded Amiodarone [Cordarone] 200 mg PO BID #60 tab 02/26/24 Diltiazem Oral [Cardizem*] 60 mg PO TID #90 tab 02/26/24 Furosemide [Lasix] 20 mg PO DAILY #30 tab 02/26/24 Allergies Allergy/AdvReac Type Severity Reaction Status Date / Time Latex, Natural Rubber Allergy Rash/Hives Verified 06/11/24 15:22 Review of Systems ROS Statement: Those systems with pertinent positive or pertinent negative responses have been documented in the HPI. ROS Other: All systems not noted in ROS Statement are negative. Past Medical History Past Medical History: Atrial Fibrillation, GERD/Reflux, Hearing Disorder / Deafness, Hyperlipidemia, Hypertension, Osteoarthritis (OA), Pneumonia, Thyroid Disorder Additional Past Medical History / Comment(s): Afib with RVR, mitral valve prolapse/murmur-had mitral valve replacement 2010, gallbladder dyskinesia, diverticulosis, UTIs, hypothyroid, arthritis bilateral hands fingers. History of Any Multi-Drug Resistant Organisms: None Reported Past Surgical History: Appendectomy, Cardiac Valve Replacement Additional Past Surgical History / Comment(s): TEEs, cardiac caths, 2010 mitral valve replacement, colonoscopies, bilateral cataract removals/lens implants. Past Anesthesia/Blood Transfusion Reactions: No Reported Reaction, Motion Sickness Additional Past Anesthesia/Blood Transfusion Reaction / Comment(s): Clausterphobia Past Psychological History: No Psychological Hx Reported Additional Psychological History / Comment(s): Pt resides alone. She has a cane and walker, shower chair and grab bar. She has family who are very helpful. she drives. Smoking Status: Never smoker Past Alcohol Use History: None Reported Past Drug Use History: None Reported - Past Family History Father Family Medical History: Cancer Additional Family Medical History / Comment(s): Father from lung/brain cancer. He was a smoker and a drinker. Mother Family Medical History: Diabetes Mellitus Sister(s) Family Medical History: Prostate Disorder Additional Family Medical History / Comment(s): Pt has one sister with diabetes and another sister with multiple sclerosis. General Exam - General Exam Comments Initial Comments: PHYSICAL EXAM: General Impression: Alert and oriented x3, not in acute distress HEENT: Normocephalic atraumatic, extra-ocular movements intact, pupils equal and reactive to light bilaterally, mucous membranes moist. Cardiovascular: Heart regular rate and rhythm Chest: Able to complete full sentences, no retractions, no tachypnea Abdomen: abdomen soft, non-tender, non-distended, no organomegaly Musculoskeletal: Pulses present and equal in all extremities, no peripheral edema Motor: no focal deficits noted Neurological: CN II-XII grossly intact, no focal motor or sensory deficits noted Skin: Intact with no visualized rashes Psych: Normal affect and mood Course Vital Signs 06/11/24 15:09 Temperature 97.6 F Pulse Rate 95 Respiratory 14 Rate Blood Pressure 160/102 O2 Sat by Pulse 89 L Oximetry EKG Findings - EKG Comments: EKG Findings:: My EKG interpretation: Ventricular rate 85, A-fib, QRS 160, QTc 524. No QTC prolongation, no ST or T-wave changes noted. EKG compared to February 23, 2024 showing no changes. Overall, this EKG is unremarkable Medical Decision Making - Medical Decision Making Was pt. sent in by a medical professional or institution (, PA, [employer], urgent care, hospital, or snf...) When possible be specific @ -No Did you speak to anyone other than the patient for history (EMS, parent, family, police, friend...)? What history was obtained from this source @ -EMS as described above Did you review nursing and triage notes (agree or disagree)? Why? @ -I reviewed and agree with nursing and triage notes Were old charts reviewed (outside hosp., previous admission, EMS record, old EKG, old radiological studies, urgent care reports/EKG's, snf records)? Report findings @ -No old charts were reviewed Differential Diagnosis (chest pain, altered mental status, abdominal pain women, abdominal pain men, vaginal bleeding, musculoskeletal, weakness, fever, dyspnea, syncope, headache, dizziness, GI bleed, back pain, seizure, CVA, palpatations, mental health)? @ -Cervical fracture, rib fracture, scalp fracture EKG interpreted by me (3pts min.). @ -Above X-rays interpreted by me (1pt min.). @ -Pelvis x-ray shows no acute processes. Chest x-ray shows no rib fractures and no pneumothorax CT interpreted by me (1pt min.). @ -Scan the brain shows left subdural hematoma U/S interpreted by me (1pt. min.). @ -None done What testing was considered but not performed or refused? (CT, X-rays, U/S, labs)? Why? @ -None What meds were considered but not given or refused? Why? @ -None Was smoking cessation discussed for >3mins.? @ -No Were there social determinants of health that impacted care today? How? (Homelessness, low income, unemployed, alcoholism, drug addiction, transportation, low edu. Level, literacy, decrease access to med. care, [place] [facility], rehab)? @ -No Was there de-escalation of care discussed even if they declined (Discuss DNR or withdrawal of care, Hospice)? DNR status @ -No What co-morbidities impacted this encounter? (DM, HTN, Smoking, COPD, CAD, Cancer, CVA, ARF, Chemo, Hep., AIDS, mental health diagnosis, sleep apnea, morbid obesity)? @ -Anti-coagulation use Was patient admitted / discharged? Hospital course, mention meds given and route, prescriptions, significant lab abnormalities, going to OR and other pertinent info. @ -88-year-old female presents to the emergency department after fall. She does take anticoagulation medications. operating room surgical technician was asked to find out what anticoagulation medication patient is on. Apparently pharmacy of record shows that patient is on Eliquis likely for A-fib. Patient has history of A-fib according to previous EKGs. Vital signs show slight hypertension. Patient in no acute distress at the bedside. Code coag paged overhead. Patient went rapidly to CT showing subdural hematoma. Patient's blood pressure slightly elevated given blood pressure control. Patient on Eliquis and given Kcentra. Patient be transferred to [facility] for further care. Case discussed with [facility] transfer line discussed with Dr. Chet Fernando who will accept transfer. Did you discuss the management of the patient with other professionals (professionals i.e. , PA, [employer], lab, RT, psych nurse, social work manager, tile mechanic, teacher, attendance officer, family service caseworker)? Give summary @ -, See above. Was critical care preformed (if so, how long)? @ -Yes, 33 minutes Undiagnosed new problem with uncertain prognosis? @ -No Drug Therapy requiring intensive monitoring for toxicity (Heparin, Nitro, Insulin, Cardizem)? @ -No Were any procedures done? @ -No Diagnosis/symptom? Acute, or Chronic, or Acute on Chronic? Uncomplicated (without systemic symptoms) or Complicated (systemic symptoms)? @ -Fall complicated by acute intracranial bleed Side effects of treatment? @ -No Exacerbation, Progression, or Severe Exacerbation? @ -No Poses a threat to life or bodily function? How? (Chest pain, USA, MT, pneumonia, PE, COPD, DKA, ARF, appy, cholecystitis, CVA, Diverticulitis, Homicidal, Suicidal, threat to staff... and all critical care pts) @ -Yes - Lab Data Result diagrams: 06/11/24 15:23 Lab Results 06/11/24 Range/Units 15:23 WBC 16.0 H (3.8-10.6) k/uL RBC 3.66 L (3.80-5.40) m/uL Hgb 10.8 L (11.4-16.0) gm/dL Hct 33.4 L (34.0-46.0) % MCV 91.1 (80.0-100.0) fL MCH 29.5 (25.0-35.0) pg MCHC 32.4 (31.0-37.0) g/dL RDW 15.4 (11.5-15.5) % Plt Count 195 (150-450) k/uL MPV 8.6 Neutrophils % 87 % Lymphocytes % 6 % Monocytes % 4 % Eosinophils % 2 % Basophils % 1 % Neutrophils # 13.9 H (1.3-7.7) k/uL Lymphocytes # 1.0 (1.0-4.8) k/uL Monocytes # 0.6 (0-1.0) k/uL Eosinophils # 0.3 (0-0.7) k/uL Basophils # 0.1 (0-0.2) k/uL Hypochromasia Slight Disposition Clinical Impression: Intracranial bleed Disposition: OTHER INSTITUTION NOT DEFINED Condition: Critical Referrals: None,Stated [REFERRING] - 1-2 days Time of Disposition: 15:20 - Out of Hospital Transfer - Req. Specs Out of Hospital Transfer - Requested Specifics: Other Emergency Center ([facility])
[2024-06-11 15:23] VITALS: RESP 14; TEMP 97.6
[2024-06-11] MEDS: LABETALOL 5 MG/ML VIAL MDV IVP STA (15:26)
--- NOTE | 2024-06-11 15:26 | CT ---
EXAMINATION TYPE: CT brain cspine wo con CT DLP: 1317.9 mGycm, Automated exposure control for dose reduction was used. DATE OF EXAM: 06/11/2024 3:12 PM COMPARISON: CT brain C-spine 05/27/2021. CLINICAL INDICATION:Female, 88 years old with history of code coag; fall on thinners. code coag, pain TECHNIQUE: Brain: Multiple axial CT images of the brain were obtained without IV contrast. Cspine: Axial CT images from the skull base to the inferior aspect of T2 we obtained without intraven ous contrast. Coronal and sagittal reformatted images were also reviewed. FINDINGS: Brain: Extra-axial spaces: Hyperdense and low density fluid along the left cerebral convexity with a maximum thickness of 8 mm. Hyperdense serpiginous fluid within the left frontal subarachnoid space extending into the sylvian fissure. Additional hyperdense fluid identified in the basal cisterns and along the anterior falx. Ventricular system: There is some mild effacement of the left lateral ventricle. No distinct intraven tricular hemorrhage. Cerebral parenchyma: No acute intraparenchymal hemorrhage or mass effect. The waite-white junction is well differentiated. Confluent hypoattenuating areas are seen within the periventricular and subcort ical white matter. Cerebellum: Unremarkable. Mass effect: Approximately 8 mm midline shift to the right. Intracranial vasculature: Atherosclerotic calcifications of the intracranial vessels. Soft tissues: Mild posterior midline and left scalp soft tissue contusion. Calvarium/osseous structures: No depressed skull fracture. Paranasal sinuses and mastoid air cells: Clear. Visualized orbits: Bilateral aphakia Cervical spine: Fracture: None. Osseous structures: Diffuse bone demineralization. Multilevel degenerative disc disease changes with endplate spurring and disc osteophyte complex's. Vertebral alignment: Within normal limits. Spinal canal/Neural Foramina: No significant stenosis of the central canal. Facet joint uncovertebral joint arthropathy scattered throughout the cervical spine with varying degrees of neural foraminal s tenosis. Neck soft tissues: Prevertebral soft tissues are within normal limits. Other: The airway is patent. Biapical pleural-parenchymal scarring. Mass within the venous vasculatur e within the right subclavicular region. IMPRESSION: 1. Acute left subdural hematoma with subdural hematoma along the anterior falx. Additional subarachn oid hemorrhage within the left frontal region and within the basilar cisterns. There is resultant radha roximately 8 mm of midline shift to the right. 2. Nonspecific white matter changes, likely secondary to chronic small vessel ischemic disease. 3. No evidence of cervical spine fracture. 4. Moderate multilevel degenerative disc disease. Findings called to and discussed with Leda Alcocer at 3:23 PM on 06/11/2024. [facility], , 06/11/2024 3:24 PM
[2024-06-11 15:37] LABS: Basophils # (A) 0.1 k/uL (0-0.2); Basophils % (A) 1 %; Eosinophils # (A) 0.3 k/uL (0-0.7); Eosinophils % (A) 2 %; HCT 33.4 % (34.0-46.0); HGB 10.8 gm/dL (11.4-16.0); Hypochromasia Slight; Lymphocytes % (A) 6 %; MCH 29.5 pg (25.0-35.0); MCHC 32.4 g/dL (31.0-37.0); MCV 91.1 fL (80.0-100.0); Mean Platelet Volume 8.6; Monocytes # (A) 0.6 k/uL (0-1.0); Monocytes % (A) 4 %; Neutrophils # (A) 13.9 k/uL (1.3-7.7); Neutrophils % (A) 87 %; Platelet Count 195 k/uL (150-450); RBC 3.66 m/uL (3.80-5.40); RDW 15.4 % (11.5-15.5)
--- NOTE | 2024-06-11 15:42 | XR ---
EXAMINATION TYPE: XR pelvis AP view DATE OF EXAM: 06/11/2024 3:38 PM COMPARISON: None. CLINICAL INDICATION: Female, 88 years old with history of Trauma, pain TECHNIQUE: XR pelvis AP view views were obtained FINDINGS: No evidence for fracture, dislocation or bony lesion. Joint spaces are well-preserved. S I joints appear symmetric. IMPRESSION: No acute fracture or dislocation seen. [facility], , 06/11/2024 3:40 PM
--- NOTE | 2024-06-11 15:44 | XR ---
EXAMINATION TYPE: XR chest 1V portable DATE OF EXAM: 06/11/2024 3:38 PM COMPARISON: 02/22/2024 CLINICAL INDICATION: Female, 88 years old with history of trauma, TECHNIQUE: XR chest 1V portable views of the chest are obtained. FINDINGS: Demonstrated are scattered senescent parenchymal change. Cardiomegaly with pulmonary venous congestion. Reflect congestive failure. Infiltrates of other etiol ogy not excluded. Correlate with BNP and clinically. Hilar and mediastinal structures are within norm al limits. Degenerative changes are seen of the dorsal spine. IMPRESSION: 1. Cardiomegaly with pulmonary venous congestion. Reflect congestive failure. Infiltrates of other e tiology not excluded. Correlate with BNP and clinically. [facility], , 06/11/2024 3:41 PM
[2024-06-11 15:46] LABS: INR 1.2 (<1.2); Partial Thromboplastin Time 22.6 sec (22.0-30.0); Prothrombin Time 12.6 sec (10.0-12.5)
[2024-06-11 15:49] LABS: ALT 20 U/L (4-34); AST 44 U/L (14-36); African American GFR (CKD) 64 (>60 ml/min/1.73 sqM); Albumin 3.8 g/dL (3.5-5.0); Alcohol <10 mg/dL; Alkaline Phosphatase 75 U/L (38-126); Anion Gap 8 mmol/L; Blood Urea Nitrogen 15 mg/dL (7-17); Carbon Dioxide 31 mmol/L (22-30); Chloride 103 mmol/L (98-107); Creatine Kinase 30 U/L (30-135); Glucose 186 mg/dL (74-99); Non-African American GFR(CKD) 55 (>60 ml/min/1.73 sqM); Potassium 3.3 mmol/L (3.5-5.1); Sodium 142 mmol/L (137-145); Total Bilirubin 1.1 mg/dL (0.2-1.3)
[2024-06-11 16:19] LABS: Amphetamine Screen,Urine Not Detected (NotDetected); Barbiturate Screen,Urine Not Detected (NotDetected); Benzodiazepines Screen,Urine Not Detected (NotDetected); Cocaine Screen,Urine Not Detected (NotDetected); Methadone Screen, Urine Not Detected (NotDetected); Opiate Screen,Urine Not Detected (NotDetected); Oxycodone Screen, Urine Not Detected (NotDetected); Phencyclidine Screen,Urine Not Detected (NotDetected); Tricyclic Antidepressant,Urine Not Detected (NotDetected); Urn Cannabinoid Scrn Not Detected (NotDetected)
[2024-06-11] MEDS: ONDANSETRON 4 MG/2 ML VIAL IVP STA (16:25)
[2024-06-11] MEDS ORDERED: NALOXONE 0.4 MG/ML 1 ML VIAL IV PRN (16:26)
--- NOTE | 2024-06-11 16:27 | ED ---
Medical Decision Making - Medical Decision Making While patient was awaiting transfer family arrive. Disposition options were discussed. They are concerned that patient has significant cardiac issues. States that she has been declining rapidly over the last couple months. They request that patient be admitted for comfort measures. They do not want to pursue transfer to [facility]. States on arrival that patient appears to be ill. They did not feel comfortable with patient being discharged for at home comfort care. Case discussed with hospitalist for admission. - Lab Data Result diagrams: 06/11/24 15:23 06/11/24 15:23 Lab Results 06/11/24 06/11/24 06/11/24 Range/Units 15:23 15:23 15:23 WBC 16.0 H (3.8-10.6) k/uL RBC 3.66 L (3.80-5.40) m/uL Hgb 10.8 L (11.4-16.0) gm/dL Hct 33.4 L (34.0-46.0) % MCV 91.1 (80.0-100.0) fL MCH 29.5 (25.0-35.0) pg MCHC 32.4 (31.0-37.0) g/dL RDW 15.4 (11.5-15.5) % Plt Count 195 (150-450) k/uL MPV 8.6 Neutrophils % 87 % Lymphocytes % 6 % Monocytes % 4 % Eosinophils % 2 % Basophils % 1 % Neutrophils # 13.9 H (1.3-7.7) k/uL Lymphocytes # 1.0 (1.0-4.8) k/uL Monocytes # 0.6 (0-1.0) k/uL Eosinophils # 0.3 (0-0.7) k/uL Basophils # 0.1 (0-0.2) k/uL Hypochromasia Slight PT 12.6 H (10.0-12.5) sec INR 1.2 H (<1.2) APTT 22.6 (22.0-30.0) sec Sodium 142 (137-145) mmol/L Potassium 3.3 L (3.5-5.1) mmol/L Chloride 103 (98-107) mmol/L Carbon Dioxide 31 H (22-30) mmol/L Anion Gap 8 mmol/L BUN 15 (7-17) mg/dL Creatinine 0.93 (0.52-1.04) mg/dL Est GFR (CKD-EPI)AfAm 64 (>60 ml/min/1.73 sqM) Est GFR (CKD-EPI)NonAf 55 (>60 ml/min/1.73 sqM) Glucose 186 H (74-99) mg/dL Plasma Lactic Acid Bryce (0.7-2.0) mmol/L Calcium 9.0 (8.4-10.2) mg/dL Total Bilirubin 1.1 (0.2-1.3) mg/dL AST 44 H (14-36) U/L ALT 20 (4-34) U/L Alkaline Phosphatase 75 (38-126) U/L Creatine Kinase 30 (30-135) U/L Troponin I (0.000-0.034) ng/mL Total Protein 7.0 (6.3-8.2) g/dL Albumin 3.8 (3.5-5.0) g/dL Urine Opiates Screen (NotDetected) Ur Oxycodone Screen (NotDetected) Urine Methadone Screen (NotDetected) Ur Barbiturates Screen (NotDetected) U Tricyclic Antidepress (NotDetected) Ur Phencyclidine Scrn (NotDetected) Ur Amphetamines Screen (NotDetected) U Methamphetamines Scrn (NotDetected) U Benzodiazepines Scrn (NotDetected) Urine Cocaine Screen (NotDetected) U Marijuana (THC) Screen (NotDetected) Serum Alcohol <10 mg/dL Blood Type Blood Type Recheck Bld Type Recheck Status Spec Expiration Date 06/11/24 06/11/24 06/11/24 Range/Units 15:23 15:23 15:45 WBC (3.8-10.6) k/uL RBC (3.80-5.40) m/uL Hgb (11.4-16.0) gm/dL Hct (34.0-46.0) % MCV (80.0-100.0) fL MCH (25.0-35.0) pg MCHC (31.0-37.0) g/dL RDW (11.5-15.5) % Plt Count (150-450) k/uL MPV Neutrophils % % Lymphocytes % % Monocytes % % Eosinophils % % Basophils % % Neutrophils # (1.3-7.7) k/uL Lymphocytes # (1.0-4.8) k/uL Monocytes # (0-1.0) k/uL Eosinophils # (0-0.7) k/uL Basophils # (0-0.2) k/uL Hypochromasia PT (10.0-12.5) sec INR (<1.2) APTT (22.0-30.0) sec Sodium (137-145) mmol/L Potassium (3.5-5.1) mmol/L Chloride (98-107) mmol/L Carbon Dioxide (22-30) mmol/L Anion Gap mmol/L BUN (7-17) mg/dL Creatinine (0.52-1.04) mg/dL Est GFR (CKD-EPI)AfAm (>60 ml/min/1.73 sqM) Est GFR (CKD-EPI)NonAf (>60 ml/min/1.73 sqM) Glucose (74-99) mg/dL Plasma Lactic Acid Bryce 2.0 (0.7-2.0) mmol/L Calcium (8.4-10.2) mg/dL Total Bilirubin (0.2-1.3) mg/dL AST (14-36) U/L ALT (4-34) U/L Alkaline Phosphatase (38-126) U/L Creatine Kinase (30-135) U/L Troponin I <0.012 (0.000-0.034) ng/mL Total Protein (6.3-8.2) g/dL Albumin (3.5-5.0) g/dL Urine Opiates Screen (NotDetected) Ur Oxycodone Screen (NotDetected) Urine Methadone Screen (NotDetected) Ur Barbiturates Screen (NotDetected) U Tricyclic Antidepress (NotDetected) Ur Phencyclidine Scrn (NotDetected) Ur Amphetamines Screen (NotDetected) U Methamphetamines Scrn (NotDetected) U Benzodiazepines Scrn (NotDetected) Urine Cocaine Screen (NotDetected) U Marijuana (THC) Screen (NotDetected) Serum Alcohol mg/dL Blood Type O Negative Blood Type Recheck O Neg Bld Type Recheck Status No Spec Expiration Date 06/14/2024 - 234406/11/24 Range/Units 15:56 WBC (3.8-10.6) k/uL RBC (3.80-5.40) m/uL Hgb (11.4-16.0) gm/dL Hct (34.0-46.0) % MCV (80.0-100.0) fL MCH (25.0-35.0) pg MCHC (31.0-37.0) g/dL RDW (11.5-15.5) % Plt Count (150-450) k/uL MPV Neutrophils % % Lymphocytes % % Monocytes % % Eosinophils % % Basophils % % Neutrophils # (1.3-7.7) k/uL Lymphocytes # (1.0-4.8) k/uL Monocytes # (0-1.0) k/uL Eosinophils # (0-0.7) k/uL Basophils # (0-0.2) k/uL Hypochromasia PT (10.0-12.5) sec INR (<1.2) APTT (22.0-30.0) sec Sodium (137-145) mmol/L Potassium (3.5-5.1) mmol/L Chloride (98-107) mmol/L Carbon Dioxide (22-30) mmol/L Anion Gap mmol/L BUN (7-17) mg/dL Creatinine (0.52-1.04) mg/dL Est GFR (CKD-EPI)AfAm (>60 ml/min/1.73 sqM) Est GFR (CKD-EPI)NonAf (>60 ml/min/1.73 sqM) Glucose (74-99) mg/dL Plasma Lactic Acid Bryce (0.7-2.0) mmol/L Calcium (8.4-10.2) mg/dL Total Bilirubin (0.2-1.3) mg/dL AST (14-36) U/L ALT (4-34) U/L Alkaline Phosphatase (38-126) U/L Creatine Kinase (30-135) U/L Troponin I (0.000-0.034) ng/mL Total Protein (6.3-8.2) g/dL Albumin (3.5-5.0) g/dL Urine Opiates Screen Not Detected (NotDetected) Ur Oxycodone Screen Not Detected (NotDetected) Urine Methadone Screen Not Detected (NotDetected) Ur Barbiturates Screen Not Detected (NotDetected) U Tricyclic Antidepress Not Detected (NotDetected) Ur Phencyclidine Scrn Not Detected (NotDetected) Ur Amphetamines Screen Not Detected (NotDetected) U Methamphetamines Scrn Not Detected (NotDetected) U Benzodiazepines Scrn Not Detected (NotDetected) Urine Cocaine Screen Not Detected (NotDetected) U Marijuana (THC) Screen Not Detected (NotDetected) Serum Alcohol mg/dL Blood Type Blood Type Recheck Bld Type Recheck Status Spec Expiration Date Disposition Clinical Impression: Intracranial bleed Disposition: ADMITTED IP TO THIS [facility] Condition: Fair Is patient prescribed a controlled substance at d/c from ED?: No Referrals: None,Stated [REFERRING] - 1-2 days Decision Time: 16:26
[2024-06-11] MEDS ORDERED: LORazepam 2 MG/ML INJ IV PRN (16:29)
[2024-06-11] MEDS ORDERED: ACETAMINOPHEN TAB 325 MG TAB PO PRN (16:29)
[2024-06-11] MEDS ORDERED: ONDANSETRON 4 MG/2 ML VIAL IVP PRN (16:29)
[2024-06-11 17:00] VITALS: BP 150/103; PULSE 87
[2024-06-11] MEDS: MORPHINE SULFATE 2 MG/ML SYRINGE IVP PRN (18:03)
[2024-06-11] MEDS ORDERED: LORazepam 1 MG/0.5 ML VIAL IV PRN (18:06)
--- NOTE | 2024-06-15 15:29 | P.HPIM ---
History of Present Illness H&P Date: 06/11/24 Patient presented to the emergency department after a fall and per ER documentation patient was found sitting in the driveway after a fall and unsure of downtime and denies any head injury. This was a nontraumatic fall although was unable to get up. Patient was brought to the emergency department and per ER documentation started having an intense headache in the EMS and underwent CT head which revealed an acute left subdural hematoma with subdural hematoma along the anterior falx additional subarachnoid hemorrhage with the left frontal region within the basilar cisterns and resultant approximately 8 mm midline shift to the right, none specific white matter changes and no evidence of cerv ical spine fracture and moderate multilevel degenerative disc disease. After these findings per ER physician documentation this was discussed with family and they wanted to proceed with hospice care and a hospice informational evaluation. They were not comfortable bringing the patient home. Patient was admitted to medicine with comfort care measures that were placed by ER physician. Patient was not evaluated by admitting physician team. Please refer to nursing and ER documentation for further HPI Past Medical History Past Medical History: Atrial Fibrillation, GERD/Reflux, Hearing Disorder / Deafness, Hyperlipidemia, Hypertension, Osteoarthritis (OA), Pneumonia, Thyroid Disorder Additional Past Medical History / Comment(s): Afib with RVR, mitral valve prolapse/murmur-had mitral valve replacement 2010, gallbladder dyskinesia, diverticulosis, UTIs, hypothyroid, arthritis bilateral hands fingers. History of Any Multi-Drug Resistant Organisms: None Reported Past Surgical History: Appendectomy, Cardiac Valve Replacement Additional Past Surgical History / Comment(s): TEEs, cardiac caths, 2010 mitral valve replacement, colonoscopies, bilateral cataract removals/lens implants. Past Anesthesia/Blood Transfusion Reactions: No Reported Reaction, Motion Sickness Additional Past Anesthesia/Blood Transfusion Reaction / Comment(s): Clausterphobia Past Psychological History: No Psychological Hx Reported Additional Psychological History / Comment(s): Pt resides alone. She has a cane and walker, shower chair and grab bar. She has family who are very helpful. she drives. Smoking Status: Never smoker Past Alcohol Use History: None Reported Past Drug Use History: None Reported - Past Family History Father Family Medical History: Cancer Additional Family Medical History / Comment(s): Father from lung/brain cancer. He was a smoker and a drinker. Mother Family Medical History: Diabetes Mellitus Sister(s) Family Medical History: Prostate Disorder Additional Family Medical History / Comment(s): Pt has one sister with diabetes and another sister with multiple sclerosis. Medications and Allergies Home Medications Medication Instructions Recorded Confirmed Type Simvastatin [Zocor] 10 mg PO HS 11/18/19 02/22/24 History L.acidoph,Paracasei, B.lactis 1 cap PO DAILY 05/27/21 02/22/24 History [Probiotic] Multivit-Min/FA/Lycopen/Lutein 1 tab PO DAILY 05/27/21 02/22/24 History [Centrum Silver Tablet] Zinc 50 mg PO HS 05/27/21 02/22/24 History lisinopriL 2.5 mg PO DAILY 05/27/21 02/22/24 History Cholecalciferol [Vitamin D3 (25 25 mcg PO BID 07/20/21 02/22/24 History Mcg = 1000 Iu)] Apixaban [Eliquis] 2.5 mg PO BID 02/22/24 02/22/24 History Ascorbic Acid [Vitamin C] 500 mg PO HS 02/22/24 02/22/24 History Aspirin EC [Ecotrin Low Dose] 81 mg PO HS 02/22/24 02/22/24 History Levothyroxine Sodium [Synthroid] 88 mcg PO DAILY 02/22/24 02/22/24 History Magnesium Oxide [Magnesium] 500 mg PO HS 02/22/24 02/22/24 History Metoprolol Succinate (ER) [Toprol 50 mg PO HS 02/22/24 02/22/24 History XL] Metoprolol Succinate [Toprol XL] 100 mg PO DAILY 02/22/24 02/22/24 History Amiodarone [Cordarone] 200 mg PO BID #60 tab 02/26/24 Rx Diltiazem Oral [Cardizem*] 60 mg PO TID #90 tab 02/26/24 Rx Furosemide [Lasix] 20 mg PO DAILY #30 tab 02/26/24 Rx Allergies Allergy/AdvReac Type Severity Reaction Status Date / Time Latex, Natural Rubber Allergy Rash/Hives Verified 06/11/24 15:22 Results CBC & Chem 7: 06/11/24 15:23 06/11/24 15:23
--- NOTE | 2024-06-15 15:30 | P.DS ---
Providers Date of admission: 06/11/24 16:27 Expected date of discharge: 06/11/24 Attending physician: Nicky Skinner Primary care physician: Deneen Meehan [facility] Course: Patient presented to the emergency department after a fall and per ER documentation patient was found sitting in the driveway after a fall and unsure of downtime and denies any head injury. This was a nontraumatic fall although was unable to get up. Patient was brought to the emergency department and per ER documentation started having an intense headache in the EMS and underwent CT head which revealed an acute left subdural hematoma with subdural hematoma along the anterior falx additional subarachnoid hemorrhage with the left frontal region within the basilar cisterns and resultant approximately 8 mm midline shift to the right, none specific white matter changes and no evidence of cervical spine fracture and moderate multilevel degenerative disc disease. After these findings per ER physician documentation this was discussed with family and they wanted to proceed with hospice care and a hospice informational evaluation. They were not comfortable bringing the patient home. Patient was admitted to medicine with comfort care measures that were placed by ER physician. Patient was not evaluated by admitting physician team. Please refer to nursing and ER documentation for further HPI Patient Condition at Discharge: Poor Plan - Discharge Summary Discharge Rx Participant: No New Discharge Prescriptions: No Action Simvastatin [Zocor] 10 mg PO HS Zinc 50 mg PO HS Metoprolol Succinate [Toprol XL] 100 mg PO DAILY Magnesium Oxide [Magnesium] 500 mg PO HS Aspirin EC [Ecotrin Low Dose] 81 mg PO HS Levothyroxine Sodium [Synthroid] 88 mcg PO DAILY Apixaban [Eliquis] 2.5 mg PO BID Diltiazem Oral [Cardizem*] 60 mg PO TID #90 tab Amiodarone [Cordarone] 200 mg PO BID #60 tab Furosemide [Lasix] 20 mg PO DAILY #30 tab L.acidoph,Paracasei, B.lactis [Probiotic] 1 cap PO DAILY lisinopriL 2.5 mg PO DAILY Multivit-Min/FA/Lycopen/Lutein [Centrum Silver Tablet] 1 tab PO DAILY Cholecalciferol [Vitamin D3 (25 Mcg = 1000 Iu)] 25 mcg PO BID Metoprolol Succinate (ER) [Toprol XL] 50 mg PO HS Ascorbic Acid [Vitamin C] 500 mg PO HS Discharge Medication List Simvastatin [Zocor] 10 mg PO HS 11/18/19 [History] L.acidoph,Paracasei, B.lactis [Probiotic] 1 cap PO DAILY 05/27/21 [History] Multivit-Min/FA/Lycopen/Lutein [Centrum Silver Tablet] 1 tab PO DAILY 05/27/21 [History] Zinc 50 mg PO HS 05/27/21 [History] lisinopriL 2.5 mg PO DAILY 05/27/21 [History] Cholecalciferol [Vitamin D3 (25 Mcg = 1000 Iu)] 25 mcg PO BID 07/20/21 [History] Apixaban [Eliquis] 2.5 mg PO BID 02/22/24 [History] Ascorbic Acid [Vitamin C] 500 mg PO HS 02/22/24 [History] Aspirin EC [Ecotrin Low Dose] 81 mg PO HS 02/22/24 [History] Levothyroxine Sodium [Synthroid] 88 mcg PO DAILY 02/22/24 [History] Magnesium Oxide [Magnesium] 500 mg PO HS 02/22/24 [History] Metoprolol Succinate (ER) [Toprol XL] 50 mg PO HS 02/22/24 [History] Metoprolol Succinate [Toprol XL] 100 mg PO DAILY 02/22/24 [History] Amiodarone [Cordarone] 200 mg PO BID #60 tab 02/26/24 [Rx] Diltiazem Oral [Cardizem*] 60 mg PO TID #90 tab 02/26/24 [Rx] Furosemide [Lasix] 20 mg PO DAILY #30 tab 02/26/24 [Rx] Follow up Appointment(s)/Referral(s): None,Stated [REFERRING] - 1-2 days Discharge Disposition: - Preliminary Cause of Preliminary Cause of : Intracranial hemorrhage
--- NOTE | 2024-06-30 15:28 | CDI ---
Documentation Clarification Form Date: 06/30/2024 02:52:46 PM From: Chelsey Kramer RN, CCDS Email: [email or web address] Admit Date: 06/11/2024 04:27:00 PM Patient Name: Nayeli Keith Visit Number: [id number] Discharge Date: 06/11/2024 10:40:00 PM ATTENTION: The Clinical Documentation Specialists (CDI) and [facility] Coding Staff appreciate your assistance in clarifying documentation. Please respond to the clarification below the line at the bottom and electronically sign. The CDI & [facility] Coding staff will review the response and follow-up if needed. Please note: Queries are made part of the Legal Health Record. If you have any questions, please contact the author of this message via ITS. Doctor Nicky Skinner The patient had a subdural hematoma and subarachnoid hemorrhage along with a midline shift. Based on this information and the findings below, is there an additional diagnosis that is clinically appropriate for this patient? Patient history/risk factors: A fib, HTN. From the H&P: "Patient was found sitting in the driveway after a fall and unsure of downtime and denies any head injury. This was a nontraumatic fall although was unable to get up." Clinical Indicators: H&P: "CT head which revealed an acute left subdural hematoma with subdural hematoma along the anterior falx additional subarachnoid hemorrhage with the left frontal region within the basilar cisterns and resultant approximately 8 mm midline shift to the right." 06/[address]: Acute left subdural hematoma with subdural hematoma along the anterior falx. Additional subarachnoid hemorrhage within the left frontal region and within the basilar cisterns. There is resultant approximately 8 mm of midline shift to the right." Treatment: Prothrombin complex concentration 3 units/kg/min on 06/11; IV Labetolol 20mg x1 on 06/11; Patient was admitted to medicine with comfort care measures that were placed by ER physician. Is there an additional diagnosis that is clinically appropriate for this patient? [ x ] Cerebral edema [ ] Brain compression [ ] No additional diagnosis/not clinically significant [ ] Other, please specify [ ] Unable to determine MTDD
== END 2024-06-11 22:40 | disposition expired | DRG 64 ==
LOC: SUPCPDRO 14:58 → EC 14:58 → 5NMEDONC 16:27
PROVIDERS: ADMIT Hospitalist; ATTEND Hospitalist
DX: I62.01 Nontraumatic acute subdural hemorrhage (principal); G93.6 Cerebral edema; Z51.5 Encounter for palliative care; E03.9 Hypothyroidism, unspecified; Z95.3 Presence of xenogenic heart valve; I48.91 Unspecified atrial fibrillation; Z66 Do not resuscitate; H91.90 Unspecified hearing loss, unspecified ear; W19.XXXA Unspecified fall, initial encounter; Y92.007 Garden or yard of unspecified non-institutional (private) residence as the place of occurrence of the external cause; Z79.01 Long term (current) use of anticoagulants; Z79.82 Long term (current) use of aspirin; Z79.890 Hormone replacement therapy; Z79.899 Other long term (current) drug therapy
CPT/HCPCS: 36415; 70450; 71045; 72125; 72170; 80053; 80306; 80320; 82550; 83605; 84484; 85025; 85610; 85730; 86850; 86900; 86901; 93005; 96374; 96375; 99291